=== PATIENT | male | born 1970 | race American Indian/Alaskan Native ===

== ENCOUNTER 2021-03-03 04:04 | Inpatient (IN) | payer OTHER ==
--- NOTE | 2021-03-03 04:12 | Emergency Department Report ---
HPI - General Time Seen by Provider: 03/03/21 04:08 - HPI HPI: Room 2 The patient is a 50-year-old male present with a chief complaint of right-sided weakness. Patient states at approximately 18:30 yesterday evening he noticed weakness in his right arm and leg making him unable to walk. Patient states he also noticed some difficulty speaking. ED Past Medical Hx - Past Medical History Hx Hypertension: Yes Hx CVA: Yes (No residual deficit) - Surgical History Past Surgical History?: No - Family History Family history: no significant - Social History Substance Use Type: None - Medications Home Medications: Home Medications Medication Instructions Recorded Confirmed Last Taken Type AtorvaSTATin [Lipitor] 40 mg PO QHS 03/03/21 03/03/21 1 Day Ago History ~03/02/21 1 Clopidogrel [Plavix] 75 mg PO QDAY 03/03/21 03/03/21 1 Day Ago History ~03/02/21 1 Levothyroxine Sodium [Synthroid] 300 mcg PO 03/03/21 1 Day Ago History ~03/02/21 1 Lisinopril [Zestril TAB] 30 mg PO QDAY 03/03/21 03/03/21 1 Day Ago History ~03/02/21 1 NIFEdipine [Adalat cc] 90 mg PO 03/03/21 1 Day Ago History ~03/02/21 1 glipiZIDE [Glucotrol] 5 mg PO QDAY 03/03/21 03/03/21 Unknown History ED Review of Systems ROS: Stated complaint: CVA Other details as noted in HPI Constitutional: no symptoms reported Eyes: denies: eye pain ENT: denies: throat pain Respiratory: no symptoms reported Cardiovascular: denies: chest pain Endocrine: no symptoms reported Gastrointestinal: denies: abdominal pain Musculoskeletal: denies: back pain Neurological: weakness. denies: headache Physical Exam - Physical Exam Physical Exam: GENERAL: The patient is well-developed well-nourished male lying on stretcher not appearing to be in acute distress. [] HEENT: Normocephalic. Atraumatic. Extraocular motions are intact. Patient has moist mucous membranes. NECK: Supple. Trachea midline CHEST/LUNGS: Clear to auscultation. There is no respiratory distress noted. HEART/CARDIOVASCULAR: Regular. There is no tachycardia. There is no gallop rub or murmur. ABDOMEN: Abdomen is soft, nontender. Patient has normal bowel sounds. There is no abdominal distention. SKIN: There is no rash. There is no edema. There is no diaphoresis. NEURO: The patient is awake, alert, and oriented. The patient is cooperative. Cranial nerves II through XII grossly intact. The patient has slightly impaired speech. Patient able to hold either arm at 45 degree angle for 10-second count without drift. Patient able to hold right lower extremity at 30 degree angle for 5 seconds however it drifts but does not touch the bed. Patient able to hold left lower extremity at 30 degree angle for 5-second count. NIHSS=3 MUSCULOSKELETAL: There is no evidence of acute injury. ED Course - Consultations Consultation #1: 03/03/21 04:13 Case discussed with tele- neurologist Dr. Emmanuel ED Medical Decision Making - Lab Data Result diagrams: 03/03/21 04:21 03/03/21 04:21 - EKG Data -: EKG Interpreted by Oh EKG shows normal: sinus rhythm Rate: normal - EKG Data When compared to previous EKG there are: previous EKG unavailable Interpretation: nonspecific ST-T wave iftikhar - Radiology Data Radiology results: report reviewed (CT head), image reviewed (CT head) [facility] [address] [place] [address] Cat Scan Report Signed Patient: ERINN SMITH III MR#: [id number] : 1970 Acct:[id number] Age/Sex: 50 / M ADM Date: 03/03/21 Loc: ED Attending Dr: Ordering Physician: JOVANA SOLORIO MD Date of Service: 03/03/21 Procedure(s): CT head/brain wo con Accession Number(s): [id number] cc: JOVANA SOLORIO MD CT HEAD WITHOUT CONTRAST INDICATION / CLINICAL INFORMATION: Right-sided weakness. TECHNIQUE: All CT scans at this location are performed using CT dose reduction for ALARA by means of automated exposure control. COMPARISON: None available. FINDINGS: HEMORRHAGE: None. EXTRA-AXIAL SPACES: Normal in size and morphology for the patient's age. VENTRICULAR SYSTEM: Normal in size and morphology for the patient's age. CEREBRAL PARENCHYMA: 8mm age-indeterminate left basal ganglia lacunar infarct image 15. Several tiny old lacunar infarcts right caudate and right anterior limb internal capsule. No significant abnormality. No acute territorial infarct. MIDLINE SHIFT OR HERNIATION: None. CEREBELLUM / BRAINSTEM: No significant abnormality. ORBITS: Normal as visualized. SOFT TISSUES of HEAD: No significant abnormality. CALVARIUM: No significant abnormality. PARANASAL SINUSES / MASTOID AIR CELLS: Normal as visualized. ADDITIONAL FINDINGS: None. IMPRESSION: 1. Age-indeterminate left basal ganglia lacunar infarct. 2. Mild microangiopathy 3. Several tiny old lacunar infarcts right caudate and right anterior limb internal capsule 4. No intracranial bleed or large acute territorial infarction CODE STROKE: Time of Communication (MEDIA CONSULTANT/CDT): 3:34 AM CDT 03/03/2024 Licensed Practitioner Receiving Report: Dr Solorio Signer Name: Cy Rick MD Signed: 03/03/2021 4:36 AM Workstation Name: [id number] Transcribed By: TL Dictated By: Cy Rick MD Electronically Authenticated By: Cy Rick MD Signed Date/Time: 03/03/21435 DD/ 9 TD/TT: Print Cancel - Differential Diagnosis CVA, ICH Critical care attestation.: If time is entered above; I have spent that time in minutes in the direct care of this critically ill patient, excluding procedure time. ED Disposition Clinical Impression: CVA (cerebral vascular accident) Disposition: ADMITTED INPATIENT Is pt being admited?: Yes Does the pt Need Aspirin: Yes Condition: Fair Time of Disposition: 05:22 (Hospitalist called (Dr Michele))
--- NOTE | 2021-03-03 04:19 | Consultation ---
Assessment and Plan [facility] Consult Note # Demographics Consult Type: Acute Stroke Level 2 (4.5-24 hrs) Patient Location: Emergency Room First Name: Omid Last Name: Bernard CODY Date of : 1970 Age: 50 Gender: Male Facility: [facility] Time of Initial Page ( Time): 03/03/2021, 04:09 Time of Return Call ( Time): 03/03/2021, 04:10 # HPI History: 50 yo man with history of htn, previous stroke presents wtih mild right-sided weakness starting last evening. # Data Time Head CT personally read by me ( Time): 03/03/2021, 04:[address]: no bleed preliminarily reviewed by me, please refer to radiology read for official reading # Assessment Impression: Right-sided weakness concerning for acute stroke # Plan Thrombolytic/Intervention: NOT IV Thrombolysis or IA Intervention candidate Thrombolytic Exclusion: > 4.5 hours Intraarterial Exclusion: other Symptoms not suggestive of LVO Target Blood Pressure: SBP < 220 Labs: hemoglobin A1c lipid panel Imaging: (urgency: routine): MR Angiogram Head without contrast MR Angiogram Neck with contrast MRI Brain without contrast Diagnostic Test: echo with bubble study Therapy/Evaluation: NPO until swallow evaluation PT/OT evaluation speech/swallow consultation Medication: aspirin 81 mg daily clopidogrel (Plavix) 75 mg daily aspirin 81 mg PLUS clopidogrel (Plavix) 75 mg for 21 days, then monotherapy therafter DVT Prophylaxis: SCD chemical DVT prophylaxis Other: LDL < 70 permissive hypertension telemetry monitoring I have discussed my recommendations with the referring provider Disposition: admit # Logistics Telemedicine: phone only
[2021-03-03] MEDS ORDERED: ASPIRIN 325 MG TAB PO ONE (04:37)
--- NOTE | 2021-03-03 04:41 | Cat Scan Report ---
CT HEAD WITHOUT CONTRAST INDICATION / CLINICAL INFORMATION: Right-sided weakness. TECHNIQUE: All CT scans at this location are performed using CT dose reduction for ALARA by means of automated e xposure control. COMPARISON: None available. FINDINGS: HEMORRHAGE: None. EXTRA-AXIAL SPACES: Normal in size and morphology for the patient's age. VENTRICULAR SYSTEM: Normal in size and morphology for the patient's age. CEREBRAL PARENCHYMA: 8mm age-indeterminate left basal ganglia lacunar infarct image 15. Several tiny old lacunar infarcts right caudate and right anterior limb internal capsule. No significant abnormali ty. No acute territorial infarct. MIDLINE SHIFT OR HERNIATION: None. CEREBELLUM / BRAINSTEM: No significant abnormality. ORBITS: Normal as visualized. SOFT TISSUES of HEAD: No significant abnormality. CALVARIUM: No significant abnormality. PARANASAL SINUSES / MASTOID AIR CELLS: Normal as visualized. ADDITIONAL FINDINGS: None. IMPRESSION: 1. Age-indeterminate left basal ganglia lacunar infarct. 2. Mild microangiopathy 3. Several tiny old lacunar infarcts right caudate and right anterior limb internal capsule 4. No intracranial bleed or large acute territorial infarction CODE STROKE: Time of Communication (DIRECTOR OF PROCUREMENT/CDT): 3:34 AM CDT 03/03/2024 Licensed Practitioner Receiving Report: Dr Cuevas Signer Name: Cy Rick MD Signed: 03/03/2021 4:36 AM Workstation Name: [id number]
[2021-03-03 04:49] LABS: Basophils # (Auto) 0.1 K/mm3 (0.0-0.1); Basophils % (Auto) 1.4 % (0.0-1.8); Eosinophils # (Auto) 0.1 K/mm3 (0.0-0.4); Eosinophils % (Auto) 1.6 % (0.0-4.3); Hematocrit 38.9 % (35.5-45.6); Hemoglobin 13.1 gm/dl (11.8-15.2); Lymphocytes # (Auto) 2.7 K/mm3 (1.2-5.4); Lymphocytes % (Auto) 29.2 % (13.4-35.0); Mean Corpuscular HGB Conc 34 % (32-34); Mean Corpuscular Volume 85 fl (84-94); Monocytes # (Auto) 0.6 K/mm3 (0.0-0.8); Monocytes % (Auto) 6.5 % (0.0-7.3); Platelet Count 175 K/mm3 (140-440); Red Blood Count 4.56 M/mm3 (3.65-5.03); Red Cell Distribution Width 13.8 % (13.2-15.2)
[2021-03-03 04:53] LABS: BUN/Creatinine Ratio 23; Blood Urea Nitrogen 18 mg/dL (9-20); Calcium 9.8 mg/dL (8.4-10.2); Hemolysis Index 4
[2021-03-03 04:58] LABS: INR 0.95 (0.87-1.13); Partial Thromboplastin Time 27.9 Sec. (24.2-36.6)
[2021-03-03 04:59] LABS: Thrombin Time 16.6 Sec. (15.1-19.6)
[2021-03-03] MEDS ORDERED: ALBUTEROL 2.5 MG/3 ML NEBU IH PRN (08:00)
[2021-03-03] MEDS ORDERED: DEXTROSE 50% IN WATER (25GM) 50 ML SYRINGE IV PRN (08:00)
--- NOTE | 2021-03-03 08:58 | History and Physical Report ---
History of Present Illness Date of examination: 03/03/21 Date of admission: 03/03/21 06:05 Chief complaint: Right-sided weakness and slurred speech History of present illness: Patient is a 50-year-old male with past medical history of hypertension, diabetes mellitus, 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 Also has a history of hypothyroidism presents today with complaint of slurred speech right face arm and leg weakness which started about 1700 the day before presentation. He reports that has been compliant with his Plavix but is not on aspirin although tells me that he take statin but later told the neurologist that he did not. In the ER he was treated as a code stroke as he was noted to have right arm weakness and slurred speech. Apart from physical finding initial imaging study showed MPRESSION: 1. Age- indeterminate left basal ganglia lacunar infarct. 2. Mild microangiopathy 3. Several tiny old lacunar infarcts right caudate and right anterior limb internal capsule 4. No intracranial bleed or large acute territorial infarction G Past History Past Medical History: diabetes, hypertension, hypothyroidism, stroke Past Surgical History: No surgical history Social history: no significant social history, full code. denies: alcohol abuse, prescription drug abuse, IV drug use Family history: stroke (Father and grandfather) Medications and Allergies Allergies Allergy/AdvReac Type Severity Reaction Status Date / Time No Known Allergies Allergy Verified 03/03/21 04:22 Home Medications Medication Instructions Recorded Confirmed Last Taken Type AtorvaSTATin [Lipitor] 40 mg PO QHS 03/03/21 03/03/21 1 Day Ago History ~03/02/21 1 Clopidogrel [Plavix] 75 mg PO QDAY 03/03/21 03/03/21 1 Day Ago History ~03/02/21 1 Levothyroxine Sodium [Synthroid] 300 mcg PO DAILY 03/03/21 03/03/21 1 Day Ago History ~03/02/21 1 Lisinopril [Zestril TAB] 30 mg PO QDAY 03/03/21 03/03/21 1 Day Ago History ~03/02/21 1 NIFEdipine [Adalat cc] 90 mg PO DAILY 03/03/21 03/03/21 1 Day Ago History ~03/02/21 1 glipiZIDE [Glucotrol] 5 mg PO QDAY 03/03/21 03/03/21 Unknown History Active Meds: Active Medications Acetaminophen (Acetaminophen 325 Mg Tab) 650 mg PO Q4H PRN PRN Reason: Pain MILD(1-3)/Fever >100.5/WOLFF Albuterol (Albuterol 2.5 Mg/3 Ml Nebu) 2.5 mg IH Q4HRT PRN PRN Reason: Shortness Of Breath Aspirin (Aspirin 325 Mg Tab) 325 mg PO QDAY [facility] Atorvastatin Calcium (Atorvastatin 40 Mg Tab) 80 mg PO QHS [facility]INA Clopidogrel Bisulfate (Clopidogrel 75 Mg Tab) 75 mg PO QDAY [facility]ARINA Dextrose (Dextrose 50% In Water (25gm) 50 Ml Syringe) 50 ml IV Q30MIN PRN; Protocol PRN Reason: Hypoglycemia Heparin Sodium (Porcine) (Heparin 5,000 Unit/1 Ml Vial) 5,000 unit SUB-Q Q8HR KARINA Hydralazine HCl (Hydralazine 20 Mg/1 Ml Inj) 10 mg IV Q4HR PRN PRN Reason: Hypertension Insulin Human Lispro (Insulin Lispro 100 Unit/Ml) 0 unit SUB-Q ACHS [facility]; Protocol Magnesium Hydroxide (Magnesium Hydroxide (Mom) Oral Liqd Udc) 30 ml PO Q4H PRN PRN Reason: Constipation Miscellaneous Medication (Levothyroxine Sodium [Synthroid]) 300 mcg PO DAILY [facility] Miscellaneous Medication (Lisinopril [Zestril Tab]) 30 mg PO QDAY [facility] Miscellaneous Medication (Nifedipine [Adalat Cc]) 90 mg PO DAILY [facility] Naloxone HCl (Naloxone 0.4 Mg/1 Ml Inj) 0.1 mg IV Q2MIN PRN PRN Reason: Res Rate </= 8 or 02 SAT < 92% Ondansetron HCl (Ondansetron 4 Mg/2 Ml Inj) 4 mg IV Q4H PRN PRN Reason: Nausea And Vomiting Oxycodone/Acetaminophen (Oxycodone /Acetaminophen 5-325mg Tab) 1 tab PO Q6H PRN PRN Reason: Pain, Moderate (4-6) Sodium Chloride (Sodium Chloride 0.9% 10 Ml Flush Syringe) 10 ml IV BID KARINA Sodium Chloride (Sodium Chloride 0.9% 10 Ml Flush Syringe) 10 ml IV PRN PRN PRN Reason: LINE FLUSH Sodium Chloride (Sodium Chloride 0.9% 10 Ml Flush Syringe) 10 ml INJ PRN PRN PRN Reason: LINE FLUSH Review of Systems All systems: negative Ears, nose, mouth and throat: dysphagia, other (Facial droop left) Cardiovascular: no syncope, no lightheadedness, no shortness of breath Respiratory: no cough, no cough with sputum, no shortness of breath, no dyspnea on exertion Gastrointestinal: no abdominal pain, no vomiting, no diarrhea, no constipation, no change in bowel habits, no loss of appetite Neurological: paralysis (Right side), lack of coordination, change in speech, balance difficulties, gait dysfunction, sensory deficit, paralysis (Right side) Exam - Physical Exam Narrative exam: GENERAL: The patient is well-developed well-nourished male lying on stretcher not appearing to be in acute distress. Examined in the ER HEENT: Normocephalic. Atraumatic. Extraocular motions are intact. Patient has moist mucous membranes. NECK: Supple. Trachea midline CHEST/LUNGS: Clear to auscultation. There is no respiratory distress noted. HEART/CARDIOVASCULAR: Regular. There is no tachycardia. There is no gallop rub or murmur. ABDOMEN: Abdomen is soft, nontender. Patient has normal bowel sounds. There is no abdominal distention. SKIN: There is no rash. There is no edema. There is no diaphoresis. NEURO: The patient is awake, alert, and oriented. The patient is cooperative. Cranial nerves II through XII grossly intact. The patient has slightly impaired speech. And also with the left facial droop patient able to hold either arm at 45 degree angle for 10-second count without drift. Patient able to hold right lower extremity at 30 degree angle for 5 seconds however it drifts but does not touch the bed. Patient able to hold left lower extremity at 30 degree angle for 5-second count. NIHSS=3 MUSCULOSKELETAL: There is no evidence of acute injury. - Constitutional Vitals: Temp Pulse Resp BP Pulse Ox 99.0 F 84 14 185/99 99 03/03/21 04:22 03/03/21 06:45 03/03/21 06:45 03/03/21 06:45 03/03/21 06:45 Results - Labs CBC & Chem 7: 03/03/21 04:21 03/03/21 04:21 Labs: Laboratory Last Values WBC 9.1 K/mm3 (4.5-11.0) 03/03/21 04:21 RBC 4.56 M/mm3 (3.65-5.03) 03/03/21 04:21 Hgb 13.1 gm/dl (11.8-15.2) 03/03/21 04:21 Hct 38.9 % (35.5-45.6) 03/03/21 04:21 MCV 85 fl (84-94) 03/03/21 04:21 MCH 29 pg (28-32) 03/03/21 04:21 MCHC 34 % (32-34) 03/03/21 04:21 RDW 13.8 % (13.2-15.2) 03/03/21 04:21 Plt Count 175 K/mm3 (140-440) 03/03/21 04:21 Lymph % (Auto) 29.2 % (13.4-35.0) 03/03/21 04:21 Prentiss % (Auto) 6.5 % (0.0-7.3) 03/03/21 04:21 Eos % (Auto) 1.6 % (0.0-4.3) 03/03/21 04:21 Baso % (Auto) 1.4 % (0.0-1.8) 03/03/21 04:21 Lymph # (Auto) 2.7 K/mm3 (1.2-5.4) 03/03/21 04:21 Prentiss # (Auto) 0.6 K/mm3 (0.0-0.8) 03/03/21 04:21 Eos # (Auto) 0.1 K/mm3 (0.0-0.4) 03/03/21 04:21 Baso # (Auto) 0.1 K/mm3 (0.0-0.1) 03/03/21 04:21 Seg Neutrophils % 61.3 % (40.0-70.0) 03/03/21 04:21 Seg Neutrophils # 5.6 K/mm3 (1.8-7.7) 03/03/21 04:21 PT 13.7 Sec. (12.2-14.9) 03/03/21 04:21 INR 0.95 (0.87-1.13) 03/03/21 04:21 APTT 27.9 Sec. (24.2-36.6) 03/03/21 04:21 Thrombin Time 16.6 Sec. (15.1-19.6) 03/03/21 04:21 Sodium 141 mmol/L (137-145) 03/03/21 04:21 Potassium 3.9 mmol/L (3.6-5.0) 03/03/21 04:21 Chloride 104.1 mmol/L (98-107) 03/03/21 04:21 Carbon Dioxide 25 mmol/L (22-30) 03/03/21 04:21 Anion Gap 16 mmol/L 03/03/21 04:21 BUN 18 mg/dL (9-20) 03/03/21 04:21 Creatinine 0.8 mg/dL (0.8-1.3) 03/03/21 04:21 Estimated GFR > 60 ml/min 03/03/21 04:21 BUN/Creatinine Ratio 23 % 03/03/21 04:21 Glucose 184 mg/dL (75-100) H 03/03/21 04:21 Calcium 9.8 mg/dL (8.4-10.2) 03/03/21 04:21 Assessment and Plan Assessment and plan: Patient is a 50-year-old male with past medical history of hypertension, diabetes mellitus, 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 Also has a history of hypothyroidism presents today with complaint of slurred speech right face arm and leg weakness which started about 1700 the day before presentation. He reports that has been compliant with his Plavix but is not on aspirin although tells me that he take statin but later told the neurologist that he did not. In the ER he was treated as a code stroke as he was noted to have right arm weakness and slurred speech. Apart from physical finding initial imaging study showed MPRESSION: 1. Age- indeterminate left basal ganglia lacunar infarct. 2. Mild microangiopathy 3. Several tiny old lacunar infarcts right caudate and right anterior limb internal capsule 4. No intracranial bleed or large acute territorial infarction EKG shows normal: sinus rhythm Rate: normal Acute ischemic stroke although imaging studies showing lacunar infarcts with no large bleed. Hypertension will go with permissive hypertension for the next 72 hours Diabetes mellitus Morbid obesity Dysarthria/dysphagia Right-sided weakness Unsteady gait Plan Admit to telemetry we will resume his Plavix will increase statin to 80 mg. We will also start on aspirin 325 mg p.o. daily. As noted above we will do prep aggressive hyper pressure for the next 72hours. Will obtain a PT OT speech and swallow evaluation. We will also obtain an MRI of the brain without contrast. Hydralazine as needed if blood pressure greater than 200 systolic. Fall precautions Consult neurology Seizure precautions Accu-Cheks before meals and at bedtime following successful speech evaluation if not we will do every 6 hours DVT and GI prophylaxis Plan discussed in detail with the patient Advance Directives: Yes Plan of care discussed with patient/family: Yes
[2021-03-03] MEDS ORDERED: ACETAMINOPHEN 325 MG TAB PO PRN (09:00)
[2021-03-03] MEDS: hydrALAZINE 20 MG/1 ML INJ IV PRN ×3 (09:15→22:47)
[2021-03-03] MEDS ORDERED: LEVOTHYROXINE SODIUM 300 MCG PO SCH (10:00)
[2021-03-03] MEDS ORDERED: oxyCODONE /ACETAMINOPHEN 5-325MG TAB PO PRN (10:00)
[2021-03-03] MEDS ORDERED: ONDANSETRON 4 MG/2 ML INJ IV PRN (10:00)
[2021-03-03] MEDS ORDERED: NALOXONE 0.4 MG/1 ML INJ IV PRN (10:00)
[2021-03-03] MEDS ORDERED: MAGNESIUM HYDROXIDE (MOM) ORAL LIQD UDC PO PRN (10:00)
--- NOTE | 2021-03-03 10:07 | Consultation ---
History of Present Illness Consult date: 03/03/21 Reason for Consult: CVA Chief complaint: Right-sided weakness History of present illness: 50 yo male with htn, dm, cva last year with left-sided weakness, hypothyrodism, who presents with acute onset of right face/arm/leg weakness with slurring of speech around 17:00. He presented outside the [facility]PA window. He notes that the weakness has remained the same during this hospitalization. He notes he is compliant with aspirin and plavix therapy and is not on statin therapy. He denies any other symptoms at present. Past History Past Medical History: diabetes, hypertension, stroke Medications and Allergies Allergies Allergy/AdvReac Type Severity Reaction Status Date / Time No Known Allergies Allergy Verified 03/03/21 04:22 Home Medications Medication Instructions Recorded Confirmed Last Taken Type AtorvaSTATin [Lipitor] 40 mg PO QHS 03/03/21 03/03/21 1 Day Ago History ~03/02/21 1 Clopidogrel [Plavix] 75 mg PO QDAY 03/03/21 03/03/21 1 Day Ago History ~03/02/21 1 Levothyroxine Sodium [Synthroid] 300 mcg PO DAILY 03/03/21 03/03/21 1 Day Ago History ~03/02/21 1 Lisinopril [Zestril TAB] 30 mg PO QDAY 03/03/21 03/03/21 1 Day Ago History ~03/02/21 1 NIFEdipine [Adalat cc] 90 mg PO DAILY 03/03/21 03/03/21 1 Day Ago History ~03/02/21 1 glipiZIDE [Glucotrol] 5 mg PO QDAY 03/03/21 03/03/21 Unknown History Active Meds: Active Medications Acetaminophen (Acetaminophen 325 Mg Tab) 650 mg PO Q4H PRN PRN Reason: Pain MILD(1-3)/Fever >100.5/WOLFF Albuterol (Albuterol 2.5 Mg/3 Ml Nebu) 2.5 mg IH Q4HRT PRN PRN Reason: Shortness Of Breath Aspirin (Aspirin 325 Mg Tab) 325 mg PO QDAY KARINA Atorvastatin Calcium (Atorvastatin 40 Mg Tab) 80 mg PO QHS KARINA Clopidogrel Bisulfate (Clopidogrel 75 Mg Tab) 75 mg PO QDAY KARINA Dextrose (Dextrose 50% In Water (25gm) 50 Ml Syringe) 50 ml IV Q30MIN PRN; Protocol PRN Reason: Hypoglycemia Heparin Sodium (Porcine) (Heparin 5,000 Unit/1 Ml Vial) 5,000 unit SUB-Q Q8HR [facility] Hydralazine HCl (Hydralazine 20 Mg/1 Ml Inj) 10 mg IV Q4HR PRN PRN Reason: Hypertension Last Admin: 03/03/21 09:15 Dose: 10 mg Documented by: Insulin Human Lispro (Insulin Lispro 100 Unit/Ml) 0 unit SUB-Q ACHS [facility]; Protocol Levothyroxine Sodium (Levothyroxine 150 Mcg Tab) 300 mcg PO DAILY@0600 [facility] Lisinopril (Lisinopril 10 Mg Tab) 30 mg PO QDAY [facility] Magnesium Hydroxide (Magnesium Hydroxide (Mom) Oral Liqd Udc) 30 ml PO Q4H PRN PRN Reason: Constipation Naloxone HCl (Naloxone 0.4 Mg/1 Ml Inj) 0.1 mg IV Q2MIN PRN PRN Reason: Res Rate </= 8 or 02 SAT < 92% Nifedipine (Nifedipine Xl 90 Mg Tab) 90 mg PO QDAY [facility] Ondansetron HCl (Ondansetron 4 Mg/2 Ml Inj) 4 mg IV Q4H PRN PRN Reason: Nausea And Vomiting Oxycodone/Acetaminophen (Oxycodone /Acetaminophen 5-325mg Tab) 1 tab PO Q6H PRN PRN Reason: Pain, Moderate (4-6) Sodium Chloride (Sodium Chloride 0.9% 10 Ml Flush Syringe) 10 ml IV BID [facility] Sodium Chloride (Sodium Chloride 0.9% 10 Ml Flush Syringe) 10 ml IV PRN PRN PRN Reason: LINE FLUSH Review of Systems All systems: negative (as per HPI;) Physical Examination - Vital Signs Vital Signs: Vital Signs Temp Pulse Resp BP Pulse Ox 99.0 F 93 H 14 177/89 98 03/03/21 04:22 03/03/21 04:22 03/03/21 04:22 03/03/21 04:22 03/03/21 04:22 - Physical Exam Narrative exam: Gen: nad, well-nourished; Head: normocephalic; Eyes: no gaze deviation; no ptosis; ENT: normal vocalization; CVS: warm and well-perfused; Pulm: no respiratory distress; GI: appears non-distended, protuberant; Ext: no cyanosis appreciated at distal extremities; Skin: no acute rash appreciated at distal extremities; Heme: no pathologic bruising appreciated at distal extremities; Neuro: alert, oriented to name, age, month, surroundings, mild dysarthria, no aphasia, CN 2 - PERRL, visual reddy grossly intact, CN 3, 4, 6 - EOMI, CN 5 - facial sensation symmetric to light touch, CN 7 - facial movement decreased on left, CN 8 - hearing grossly intact, CN 9, 10 - uvula midline, CN 11 - shrug symmetric, CN 12 - tongue midline; Motor - at least 4+/5 at left exts and at least 4/5 at right exts with 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 4-/5; Sensory - light touch symmetric, Cerebellar - fnf /hts difficulty on right secondary to weakness; Gait - deferred secondary to fall risk; NIHSS (1a.) Level of Consciousness:0 (1b.) LOC Questions:0 (1c.) LOC Commands:0 (2.) Best Gaze:0 (3.) Visual:0 (4.) Facial Palsy:1 (5a.) Motor Arm, Left: (5b.) Motor Arm, Right: 1 (6a.) Motor Leg, Left:0 (6b.) Motor Leg, Right:1 (7.) Limb Ataxia:0 (8.) Sensory:0 (9.) Best Language:0 (10.) Dysarthria:1 (11.) Extinction and Inattention: NIHSS Total Score: 3 Results - Laboratory Findings CBC and BMP: 03/03/21 04:21 03/03/21 04:21 Abnormal Lab Findings: Abnormal Labs 03/03/21 04:21 Glucose 184 H Assessment and Plan 50 yo male with htn, dm, cva last year with left-sided weakness, hypothyrodism, who presents with acute onset of right face/arm/leg weakness with slurring of speech around 17:00. Concern for a lacunar stroke is raised. 1. Acute Ischemic Stroke: ASA 325 mg PO qday, Plavix 75 mg PO qday; MRI Brain w/o contrast, CTA Head/Neck w/ & w/o contrast, TTEcho, check LDL/HgbA1C/TSH/Covid-19/UA/UDS, baseline ekg; telemetry, NIHSS q4 hours; SBP goal 160-200 mmHg and DBP 80-100 mmHg for 72 hours. Statin therapy for a goal LDL of 70, when patient passes swallow evaluation. PT/OT/ST/Swallow evaluation. Long-term risk-factor modification, including a strict diet/exercise regimen for secondary stroke prophylaxis. 2. Hypertension - goal SBP 160-200 mmHg and DBP 80-100 mmHg for 72 hours. 3. Diabetes Mellitus - maintain euglycemia. 4. Hyperlipidemia - goal LDL of 70 w/ statin therapy if no contraindications. 5. Dysarthria / Dysphagia - st / swallow evaluation/monitoring. 6. Right-sided weakness - pt/ot evaluation/monitoring. 7. Unsteady Gait - pt/ot evaluation/monitoring. Bob Yates MD Neurology [id number]
--- NOTE | 2021-03-03 11:14 | Magnetic Resonance Report ---
MRI BRAIN WITHOUT CONTRAST INDICATION / CLINICAL INFORMATION: stroke--weakness. TECHNIQUE: Multiplanar, multisequence MR images of the brain were obtained. COMPARISON: Head CT done earlier today FINDINGS: BRAIN / INTRACRANIAL CONTENTS: There is a small acute lacunar infarct in the left posterior limb of t he internal capsule without hemorrhage or adverse mass effect. There are multiple chronic lacunar inf arcts in the bilateral basal ganglia and periventricular white matter. There is moderate chronic smal l vessel ischemic change in the cerebral white matter. There are also a few small chronic infarcts in the cerebellar hemispheres. Scattered foci of cerebral and cerebellar hemosiderin deposition also leonard ggest chronic microhemorrhages related to hypertension. CRANIOCERVICAL JUNCTION: No significant abnormality. VASCULAR FLOW-VOIDS: No significant abnormality. ORBITS: No significant abnormality of visualized orbits. SINUSES / MASTOIDS: No significant abnormality of visualized sinuses and mastoid air cells. ADDITIONAL FINDINGS: None. IMPRESSION: 1. Acute lacunar infarct in the posterior limb of the left internal capsule. Signer Name: Eleazar Cobb MD Signed: 03/03/2021 11:10 AM Workstation Name: [id number]
--- NOTE | 2021-03-03 12:02 | Vascular Lab Report ---
DUPLEX DOPPLER ULTRASOUND CAROTID, BILATERAL INDICATION / CLINICAL INFORMATION: CVA. COMPARISON: None available. FINDINGS: RIGHT CAROTID: - PLAQUE ESTIMATE (%): < 50% - CCA velocity: 86 cm/sec. - ICA peak systolic velocity: 50 to cm/sec. - ICA/CCA PSV Ratio: 0.6 Right Vertebral Artery: Antegrade flow. LEFT CAROTID: - PLAQUE ESTIMATE: < 50% - CCA velocity: 74 cm/sec. - ICA peak systolic velocity: 59 cm/sec. - ICA/CCA PSV Ratio: 0.7 Left Vertebral Artery: Antegrade flow. IMPRESSION: 1. Right Internal Carotid Artery: Less than 50% diameter stenosis. 2. Left Internal Carotid Artery: Less than 50% diameter stenosis. Velocity criteria are extrapolated from diameter data as defined by the Society of Radiologists in Ul trasound Consensus Conference, Radiology 2003; 229;340-346. NO STENOSIS (NORMAL) * Plaque = none; ICA PSV < 125 cm/sec; ICA/CCA PSV Ratio < 2.0 <50% STENOSIS * Plaque < 50%; ICA PSV < 125 cm/sec; ICA/CCA PSV Ratio < 2.0 50-69% STENOSIS * Plaque > 50%; ICA PSV = 125-230 cm/sec; ICA/CCA PSV Ratio = 2.0-4.0 >70% BUT <100% STENOSIS * Plaque > 50%; ICA PSV > 230 cm/sec; ICA/CCA PSV Ratio > 4.0 NEAR OCCLUSION * Plaque = visible lumen; ICA PSV = high/low/none; ICA/CCA PSV Ratio = variable TOTAL OCCLUSION * Plaque = no lumen; ICA PSV = none; ICA/CCA PSV Ratio = N/A Signer Name: Jaquan Avila MD Signed: 03/03/2021 11:58 AM Workstation Name: [facility]
[2021-03-03] MEDS: CLOPIDOGREL 75 MG TAB PO SCH (12:26)
[2021-03-03] MEDS: LEVOTHYROXINE 150 MCG TAB PO SCH (12:26)
[2021-03-03] MEDS: INSULIN LISPRO 100 UNIT/ML SUB-Q SCH ×3 (12:27→22:48)
[2021-03-03] MEDS: HEPARIN 5,000 UNIT/1 ML VIAL SUB-Q SCH ×2 (14:50→22:19)
[2021-03-04] MEDS: hydrALAZINE 20 MG/1 ML INJ IV PRN (03:50)
[2021-03-04 06:08] LABS: Basophils % (Auto) 0.4 % (0.0-1.8); Eosinophils # (Auto) 0.1 K/mm3 (0.0-0.4); Eosinophils % (Auto) 0.6 % (0.0-4.3); Hematocrit 39.3 % (35.5-45.6); Hemoglobin 13.3 gm/dl (11.8-15.2); Lymphocytes # (Auto) 1.6 K/mm3 (1.2-5.4); Lymphocytes % (Auto) 16.4 % (13.4-35.0); Mean Corpuscular HGB Conc 34 % (32-34); Mean Corpuscular Volume 85 fl (84-94); Monocytes # (Auto) 0.6 K/mm3 (0.0-0.8); Monocytes % (Auto) 5.9 % (0.0-7.3); Platelet Count 190 K/mm3 (140-440); Red Blood Count 4.63 M/mm3 (3.65-5.03); Red Cell Distribution Width 13.5 % (13.2-15.2)
[2021-03-04] MEDS: HEPARIN 5,000 UNIT/1 ML VIAL SUB-Q SCH ×3 (06:20→21:54)
[2021-03-04] MEDS: LEVOTHYROXINE 150 MCG TAB PO SCH (06:21)
[2021-03-04 06:31] LABS: BUN/Creatinine Ratio 18; Blood Urea Nitrogen 18 mg/dL (9-20); Calcium 9.9 mg/dL (8.4-10.2); HDL Cholesterol 30 mg/dL (40-59); Hemolysis Index 4; LDL Cholesterol,Direct 155 mg/dL (50-130)
[2021-03-04] MEDS: INSULIN LISPRO 100 UNIT/ML SUB-Q SCH ×4 (08:45→23:04)
[2021-03-04] MEDS ORDERED: NON-FORMULARY EACH (Nifedipine [Adalat Cc] 90 MG Tablet.Er) PO SCH (10:00)
[2021-03-04] MEDS ORDERED: NON-FORMULARY EACH (Lisinopril [Zestril Tab] 30 MG Tablet) PO SCH (10:00)
[2021-03-04] MEDS ORDERED: PNEUMOCOCCAL 23 Valent 0.5 ML VIAL IM ONE (10:00)
[2021-03-04] MEDS: CLOPIDOGREL 75 MG TAB PO SCH (11:25)
[2021-03-04] MEDS: ASPIRIN 325 MG TAB PO SCH (11:26)
[2021-03-04] MEDS: NIFEdipine XL 90 MG TAB PO SCH (11:26)
[2021-03-04] MEDS: LISINOPRIL 10 MG TAB PO SCH (11:27)
--- NOTE | 2021-03-04 16:33 | Progress Note ---
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 Also has a history of hypothyroidism presents today with complaint of slurred speech right face arm and leg weakness which started about 1700 the day before presentation. He reports that has been compliant with his Plavix but is not on aspirin although tells me that he take statin but later told the neurologist that he did not. In the ER he was treated as a code stroke as he was noted to have right arm weakness and slurred speech. Apart from physical finding initial imaging study showed MPRESSION: 1. Age-in determinate left basal ganglia lacunar infarct. 2. Mild microangiopathy 3. Several tiny old lacunar infarcts right caudate and right anterior limb internal capsule 4. No intracranial bleed or large acute territorial infarction EKG shows normal: sinus rhythm Rate: normal Acute ischemic stroke although imaging studies showing lacunar infarcts with no large bleed. Hypertension will go with permissive hypertension for the next 72 hours Diabetes mellitus Morbid obesity Dysarthria/dysphagia Right-sided weakness Unsteady gait Plan Admit to telemetry we will resume his Plavix will increase statin to 80 mg. We will also start on aspirin 325 mg p.o. daily. As noted above we will do prep aggressive hyper pressure for the next 72hours. Will obtain a PT OT speech and swallow evaluation. We will also obtain an MRI of the brain without contrast. Hydralazine as needed if blood pressure greater than 200 systolic. Fall precautions Consult neurology Seizure precautions Accu-Cheks before meals and at bedtime following successful speech evaluation if not we will do every 6 hours DVT and GI prophylaxis Plan discussed in detail with the patient 03/04: MRI confirms acute stroke. Continue permissive hypertension for the next 24 hours. Speech therapy noted. Anticipate discharge to acute rehab if authorization granted in a.m. Patient tolerating diet. Carotid ultrasound did not show any requirement for intervention, plan discussed with the patient in detail. History Interval history: Patient seen and examined this morning reports some slight improvement in his speech. Hospitalist Physical - Physical exam Narrative exam: GENERAL: The patient is well-developed well-nourished male lying on stretcher not appearing to be in acute distress. Examined in the ER HEENT: Normocephalic. Atraumatic. Extraocular motions are intact. Patient has moist mucous membranes. NECK: Supple. Trachea midline CHEST/LUNGS: Clear to auscultation. There is no respiratory distress noted. HEART/CARDIOVASCULAR: Regular. There is no tachycardia. There is no gallop rub or murmur. ABDOMEN: Abdomen is soft, nontender. Patient has normal bowel sounds. There is no abdominal distention. SKIN: There is no rash. There is no edema. There is no diaphoresis. NEURO: The patient is awake, alert, and oriented. The patient is cooperative. Cranial nerves II through XII grossly intact. The patient has slightly impaired speech. And also with the left facial droop patient able to hold either arm at 45 degree angle for 10-second count without drift. Patient able to hold right lower extremity at 30 degree angle for 5 seconds however it drifts but does not touch the bed. Patient able to hold left lower extremity at 30 degree angle for 5-second count. NIHSS=3 MUSCULOSKELETAL: There is no evidence of acute injury. - Constitutional Vitals: Temp Pulse Resp BP Pulse Ox 97.5 F L 96 H 18 141/79 97 03/04/21 16:22 03/04/21 16:22 03/04/21 16:22 03/04/21 16:22 03/04/21 16:22 Results - Labs CBC & Chem 7: 03/04/21 04:00 03/04/21 04:00 Labs: Laboratory Last Values WBC 9.6 K/mm3 (4.5-11.0) 03/04/21 04:00 RBC 4.63 M/mm3 (3.65-5.03) 03/04/21 04:00 Hgb 13.3 gm/dl (11.8-15.2) 03/04/21 04:00 Hct 39.3 % (35.5-45.6) 03/04/21 04:00 MCV 85 fl (84-94) 03/04/21 04:00 MCH 29 pg (28-32) 03/04/21 04:00 MCHC 34 % (32-34) 03/04/21 04:00 RDW 13.5 % (13.2-15.2) 03/04/21 04:00 Plt Count 190 K/mm3 (140-440) 03/04/21 04:00 Lymph % (Auto) 16.4 % (13.4-35.0) 03/04/21 04:00 [place] % (Auto) 5.9 % (0.0-7.3) 03/04/21 04:00 Eos % (Auto) 0.6 % (0.0-4.3) 03/04/21 04:00 Baso % (Auto) 0.4 % (0.0-1.8) 03/04/21 04:00 Lymph # (Auto) 1.6 K/mm3 (1.2-5.4) 03/04/21 04:00 [place] # (Auto) 0.6 K/mm3 (0.0-0.8) 03/04/21 04:00 Eos # (Auto) 0.1 K/mm3 (0.0-0.4) 03/04/21 04:00 Baso # (Auto) 0.0 K/mm3 (0.0-0.1) 03/04/21 04:00 Seg Neutrophils % 76.7 % (40.0-70.0) H 03/04/21 04:00 Seg Neutrophils # 7.4 K/mm3 (1.8-7.7) 03/04/21 04:00 PT 13.7 Sec. (12.2-14.9) 03/03/21 04:21 INR 0.95 (0.87-1.13) 03/03/21 04:21 APTT 27.9 Sec. (24.2-36.6) 03/03/21 04:21 Thrombin Time 16.6 Sec. (15.1-19.6) 03/03/21 04:21 Sodium 141 mmol/L (137-145) 03/04/21 04:00 Potassium 3.4 mmol/L (3.6-5.0) L 03/04/21 04:00 Chloride 103.4 mmol/L (98-107) 03/04/21 04:00 Carbon Dioxide 23 mmol/L (22-30) 03/04/21 04:00 Anion Gap 18 mmol/L 03/04/21 04:00 BUN 18 mg/dL (9-20) 03/04/21 04:00 Creatinine 1.0 mg/dL (0.8-1.3) 03/04/21 04:00 Estimated GFR > 60 ml/min 03/04/21 04:00 BUN/Creatinine Ratio 18 % 03/04/21 04:00 Glucose 227 mg/dL (75-100) H 03/04/21 04:00 POC Glucose 197 mg/dL (70-105) H 03/04/21 11:35 Hemoglobin A1c 11.5 % (4-6) H 03/04/21 Unknown Calcium 9.9 mg/dL (8.4-10.2) 03/04/21 04:00 Triglycerides 166 mg/dL (2-149) H 03/04/21 04:00 Cholesterol 216 mg/dL (50-199) H 03/04/21 04:00 LDL Cholesterol Direct 155 mg/dL (50-130) H 03/04/21 04:00 HDL Cholesterol 30 mg/dL (40-59) L 03/04/21 04:00 Cholesterol/HDL Ratio 7.20 % 03/04/21 04:00 Active Medications - Current Medications Current Medications: Generic Name Dose Route Start Last Admin Trade Name Freq PRN Reason Stop Dose Admin Acetaminophen 650 mg 03/03/21 09:00 Acetaminophen 325 Mg Tab PO Q4H PRN Pain MILD(1-3)/Fever >100.5/WOLFF Albuterol 2.5 mg 03/03/21 08:00 Albuterol 2.5 Mg/3 Ml Nebu IH Q4HRT PRN Shortness Of Breath Aspirin 325 mg 03/04/21 10:00 03/04/21 11:26 Aspirin 325 Mg Tab PO 325 mg QDAY KARINA Administration Atorvastatin Calcium 80 mg 03/03/21 22:00 03/03/21 22:17 Atorvastatin 40 Mg Tab PO 80 mg QHS KARINA Administration Clopidogrel Bisulfate 75 mg 03/03/21 10:00 03/04/21 11:25 Clopidogrel 75 Mg Tab PO 75 mg QDAY KARINA Administration Dextrose 50 ml 03/03/21 08:00 Dextrose 50% In Water (25gm) 50 Ml Syringe IV Q30MIN PRN Hypoglycemia Protocol Heparin Sodium (Porcine) 5,000 unit 03/03/21 14:00 03/04/21 06:20 Heparin 5,000 Unit/1 Ml Vial SUB-Q 5,000 unit Q8HR KARINA Administration Hydralazine HCl 10 mg 03/03/21 10:00 03/04/21 03:50 Hydralazine 20 Mg/1 Ml Inj IV 10 mg Q4HR PRN Administration Hypertension Insulin Human Lispro 0 unit 03/03/21 11:30 03/04/21 08:45 Insulin Lispro 100 Unit/Ml SUB-Q 2 unit ACHS KARINA Administration Protocol Levothyroxine Sodium 300 mcg 03/03/21 10:00 03/04/21 06:21 Levothyroxine 150 Mcg Tab PO 300 mcg DAILY@0600 KARINA Administration Lisinopril 30 mg 03/04/21 10:00 03/04/21 11:27 Lisinopril 10 Mg Tab PO 30 mg QDAY KARINA Administration Magnesium Hydroxide 30 ml 03/03/21 10:00 Magnesium Hydroxide (Mom) Oral Liqd Udc PO Q4H PRN Constipation Naloxone HCl 0.1 mg 03/03/21 10:00 Naloxone 0.4 Mg/1 Ml Inj IV Q2MIN PRN Res Rate </= 8 or 02 SAT < 92% Nifedipine 90 mg 03/04/21 10:00 03/04/21 11:26 Nifedipine Xl 90 Mg Tab PO 90 mg QDAY KARINA Administration Ondansetron HCl 4 mg 03/03/21 10:00 Ondansetron 4 Mg/2 Ml Inj IV Q4H PRN Nausea And Vomiting Oxycodone/Acetaminophen 1 tab 03/03/21 10:00 Oxycodone /Acetaminophen 5-325mg Tab PO Q6H PRN Pain, Moderate (4-6) Sodium Chloride 10 ml 03/03/21 10:00 03/04/21 11:27 Sodium Chloride 0.9% 10 Ml Flush Syringe IV 10 ml BID KARINA Administration Sodium Chloride 10 ml 03/03/21 10:00 Sodium Chloride 0.9% 10 Ml Flush Syringe IV PRN PRN LINE FLUSH Nutrition/Malnutrition Assess - Dietary Evaluation Nutrition/Malnutrition Findings: Nutrition Notes Start: 03/03/21 12:29 Freq: Status: Active Protocol: Document 03/03/21 12:29 RADHA (Rec: 03/03/21 12:31 RADHA [id number]) Nutrition Notes Need for Assessment generated from: MD Order,Education Initial or Follow up Brief Note Current Diagnosis Hypertension,Stroke Current Diet Consistent CHO Subjective/Other Information RD consulted for diet education and NTR recommendations. Pt in ED at this time. BP >140/90 since admission. Burn Absent Trauma Absent Nutrition Intervention Follow-Up By: 10/19/21 Additional Comments F/U: diet education needs (Low sodium/CHO-controlled)
[2021-03-05] MEDS: LEVOTHYROXINE 150 MCG TAB PO SCH (05:43)
[2021-03-05] MEDS: HEPARIN 5,000 UNIT/1 ML VIAL SUB-Q SCH ×3 (05:43→22:21)
[2021-03-05] MEDS: INSULIN LISPRO 100 UNIT/ML SUB-Q SCH ×4 (08:00→22:22)
--- NOTE | 2021-03-05 08:59 | Discharge Summary ---
Providers - Providers Date of Admission: 03/03/21 06:05 Attending physician: ARIANNE LAMBERT MD 03/03/21 07:37 Consult to Physician [CONS] Routine Comment: Consulting Provider: MARTINEZ STEWART Physician Instructions: Reason For Exam: CVA Occupational Therapy Evaluate and Treat [CONS] Routine Comment: Reason For Exam: Neuro deficits Physical Therapy Evaluation and Treat [CONS] Routine Comment: Reason For Exam: Neuro deficits 03/03/21 07:41 Speech Therapy Evaluation and Treat [CONS] Routine Reason For Exam: swallow eval 03/03/21 07:42 Consult to Dietitian/Nutrition [CONS] Routine Physician Instructions: Reason For Exam: Reason for Consult: Nutrition Recommendations Reason for Consult: Diet education Primary care physician: ESTEE YOUNGER Hospitalization Reason for admission: cva Condition: Stable Hospital course: Patient is a 50-year-old male with past medical history of hypertension, diabetes mellitus, 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 Also has a history of hypothyroidism presents today with complaint of slurred speech right face arm and leg weakness which started about 1700 the day before presentation. He reports that has been compliant with his Plavix but is not on aspirin although tells me that he take statin but later told the neurologist that he did not. In the ER he was treated as a code stroke as he was noted to have right arm weakness and slurred speech. Apart from physical finding initial imaging study showed MPRESSION: 1. Age- indeterminate left basal ganglia lacunar infarct. 2. Mild microangiopathy 3. Several tiny old lacunar infarcts right caudate and right anterior limb internal capsule 4. No intracranial bleed or large acute territorial infarction EKG shows normal: sinus rhythm Rate: normal Acute ischemic stroke although imaging studies showing lacunar infarcts with no large bleed. Hypertension will go with permissive hypertension for the next 72 hours Diabetes mellitus Morbid obesity Dysarthria/dysphagia Right-sided weakness Unsteady gait Plan Admitted telemetry and treated resume his Plavix will increase statin to 80 mg. We will also start on aspirin 325 mg p.o. daily. As noted above we will do prep aggressive hyper pressure for the next 72hours. Will obtain a PT OT speech and swallow evaluation. We will also obtain an MRI of the brain without contrast. Hydralazine as needed if blood pressure greater than 200 systolic. Fall precautions Consult neurology Seizure precautions Accu-Cheks before meals and at bedtime following successful speech evaluation if not we will do every 6 hours DVT and GI prophylaxis Plan discussed in detail with the patient 03/04: MRI confirms acute stroke. Continue permissive hypertension for the next 24 hours. Speech therapy noted. Anticipate discharge to acute rehab if authorization granted in a.m. Patient tolerating diet. Carotid ultrasound did not show any requirement for intervention, plan discussed with the patient in detail. 03/05: Patient cleared for discharge but awaiting Placement and Home, has this is a late entry for yesterday. 03/06: AWAITING PLACEMENT 03/07: BP better, continue supportive care, awaiting placement 03/08: Patient seen and examined, stable for discharge to IRU for continued rehab management. Counselling provided Disposition: [facility] Final Discharge Diagnosis (Prints w/discharge instructions): CVA Time spent for discharge: 35 mins Core Measure Documentation - Palliative Care Palliative Care/ Comfort Measures: Not Applicable - Core Measures Any of the following diagnoses?: stroke - Stroke Discharge Requirements Statin for LDL = or >70 mg/dl on DC: Yes Anticoag for atrial fib/atrial flutter: Not Applicable Antithrombotic for ischemic stroke: Yes Exam - Physical Exam Narrative exam: GENERAL: The patient is well-developed well-nourished male HEENT: Normocephalic. Atraumatic. Extraocular motions are intact. Patient has moist mucous membranes. NECK: Supple. Trachea midline CHEST/LUNGS: Clear to auscultation. There is no respiratory distress noted. HEART/CARDIOVASCULAR: Regular. There is no tachycardia. There is no gallop rub or murmur. ABDOMEN: Abdomen is soft, nontender. Patient has normal bowel sounds. There is no abdominal distention. SKIN: There is no rash. There is no edema. There is no diaphoresis. NEURO: The patient is awake, alert, and oriented. The patient is cooperative. Cranial nerves II through XII grossly intact. T motor strength improved to 4/5 from the right upper extremity. Still some speech impairment but improved. Facial droop not visible anymore MUSCULOSKELETAL: There is no evidence of acute injury. - Constitutional Vitals: Temp Pulse Resp BP Pulse Ox 98.1 F 94 H 20 154/78 97 03/04/21 23:43 03/04/21 23:43 03/04/21 23:43 03/04/21 23:43 03/05/21 01:49 Plan Activity: advance as tolerated, fall precautions Diet: low fat Special Instructions: record daily weights, record daily BP diary Follow up with: ESTEE YOUNGER MD [Primary Care Provider] - 3-5 Days GROVER GARCIAS MD [Staff Physician] - 7 Days Prescriptions: AtorvaSTATin [Lipitor] 80 mg PO QHS #60 tablet Aspirin 325 mg PO QDAY #30 tablet
[2021-03-05] MEDS: CLOPIDOGREL 75 MG TAB PO SCH (11:00)
[2021-03-05] MEDS: NIFEdipine XL 90 MG TAB PO SCH (11:00)
[2021-03-05] MEDS: LISINOPRIL 10 MG TAB PO SCH (11:00)
[2021-03-05] MEDS: ASPIRIN 325 MG TAB PO SCH (11:00)
[2021-03-06] MEDS: HEPARIN 5,000 UNIT/1 ML VIAL SUB-Q SCH ×3 (05:49→22:55)
[2021-03-06] MEDS: LEVOTHYROXINE 150 MCG TAB PO SCH (05:49)
[2021-03-06] MEDS: INSULIN LISPRO 100 UNIT/ML SUB-Q SCH ×4 (08:00→22:55)
[2021-03-06] MEDS: ASPIRIN 325 MG TAB PO SCH (09:34)
[2021-03-06] MEDS: NIFEdipine XL 90 MG TAB PO SCH (09:34)
[2021-03-06] MEDS: LISINOPRIL 10 MG TAB PO SCH (09:34)
[2021-03-06] MEDS: CLOPIDOGREL 75 MG TAB PO SCH (09:34)
--- NOTE | 2021-03-06 12:50 | Progress Note ---
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 Also has a history of hypothyroidism presents today with complaint of slurred speech right face arm and leg weakness which started about 1700 the day before presentation. He reports that has been compliant with his Plavix but is not on aspirin although tells me that he take statin but later told the neurologist that he did not. In the ER he was treated as a code stroke as he was noted to have right arm weakness and slurred speech. Apart from physical finding initial imaging study showed MPRESSION: 1. Age-in determinate left basal ganglia lacunar infarct. 2. Mild microangiopathy 3. Several tiny old lacunar infarcts right caudate and right anterior limb internal capsule 4. No intracranial bleed or large acute territorial infarction EKG shows normal: sinus rhythm Rate: normal Acute ischemic stroke although imaging studies showing lacunar infarcts with no large bleed. Hypertension will go with permissive hypertension for the next 72 hours Diabetes mellitus Morbid obesity Dysarthria/dysphagia Right-sided weakness Unsteady gait Plan Admit to telemetry we will resume his Plavix will increase statin to 80 mg. We will also start on aspirin 325 mg p.o. daily. As noted above we will do prep aggressive hyper pressure for the next 72hours. Will obtain a PT OT speech and swallow evaluation. We will also obtain an MRI of the brain without contrast. Hydralazine as needed if blood pressure greater than 200 systolic. Fall precautions Consult neurology Seizure precautions Accu-Cheks before meals and at bedtime following successful speech evaluation if not we will do every 6 hours DVT and GI prophylaxis Plan discussed in detail with the patient 03/04: MRI confirms acute stroke. Continue permissive hypertension for the next 24 hours. Speech therapy noted. Anticipate discharge to acute rehab if authorization granted in a.m. Patient tolerating diet. Carotid ultrasound did not show any requirement for intervention, plan discussed with the patient in detail. 03/05: Patient cleared for discharge but awaiting Placement and Home, has this is a late entry for yesterday. History Interval history: Patient seen and examined this morning reports some good improvement in speech Hospitalist Physical - Physical exam Narrative exam: GENERAL: The patient is well-developed well-nourished male HEENT: Normocephalic. Atraumatic. Extraocular motions are intact. Patient has moist mucous membranes. NECK: Supple. Trachea midline CHEST/LUNGS: Clear to auscultation. There is no respiratory distress noted. HEART/CARDIOVASCULAR: Regular. There is no tachycardia. There is no gallop rub or murmur. ABDOMEN: Abdomen is soft, nontender. Patient has normal bowel sounds. There is no abdominal distention. SKIN: There is no rash. There is no edema. There is no diaphoresis. NEURO: The patient is awake, alert, and oriented. The patient is cooperative. Cranial nerves II through XII grossly intact. T motor strength improved to 4/5 from the right upper extremity. Still some speech impairment but improved. Facial droop not visible anymore MUSCULOSKELETAL: There is no evidence of acute injury. - Constitutional Vitals: Temp Pulse Resp BP Pulse Ox 98.1 F 91 H 18 157/93 99 03/06/21 11:52 03/06/21 11:52 03/06/21 11:52 03/06/21 11:52 03/06/21 11:52 Results - Labs CBC & Chem 7: 03/04/21 04:00 03/04/21 04:00 Labs: Laboratory Last Values WBC 9.6 K/mm3 (4.5-11.0) 03/04/21 04:00 RBC 4.63 M/mm3 (3.65-5.03) 03/04/21 04:00 Hgb 13.3 gm/dl (11.8-15.2) 03/04/21 04:00 Hct 39.3 % (35.5-45.6) 03/04/21 04:00 MCV 85 fl (84-94) 03/04/21 04:00 MCH 29 pg (28-32) 03/04/21 04:00 MCHC 34 % (32-34) 03/04/21 04:00 RDW 13.5 % (13.2-15.2) 03/04/21 04:00 Plt Count 190 K/mm3 (140-440) 03/04/21 04:00 Lymph % (Auto) 16.4 % (13.4-35.0) 03/04/21 04:00 [place] % (Auto) 5.9 % (0.0-7.3) 03/04/21 04:00 Eos % (Auto) 0.6 % (0.0-4.3) 03/04/21 04:00 Baso % (Auto) 0.4 % (0.0-1.8) 03/04/21 04:00 Lymph # (Auto) 1.6 K/mm3 (1.2-5.4) 03/04/21 04:00 [place] # (Auto) 0.6 K/mm3 (0.0-0.8) 03/04/21 04:00 Eos # (Auto) 0.1 K/mm3 (0.0-0.4) 03/04/21 04:00 Baso # (Auto) 0.0 K/mm3 (0.0-0.1) 03/04/21 04:00 Seg Neutrophils % 76.7 % (40.0-70.0) H 03/04/21 04:00 Seg Neutrophils # 7.4 K/mm3 (1.8-7.7) 03/04/21 04:00 PT 13.7 Sec. (12.2-14.9) 03/03/21 04:21 INR 0.95 (0.87-1.13) 03/03/21 04:21 APTT 27.9 Sec. (24.2-36.6) 03/03/21 04:21 Thrombin Time 16.6 Sec. (15.1-19.6) 03/03/21 04:21 Sodium 141 mmol/L (137-145) 03/04/21 04:00 Potassium 3.4 mmol/L (3.6-5.0) L 03/04/21 04:00 Chloride 103.4 mmol/L (98-107) 03/04/21 04:00 Carbon Dioxide 23 mmol/L (22-30) 03/04/21 04:00 Anion Gap 18 mmol/L 03/04/21 04:00 BUN 18 mg/dL (9-20) 03/04/21 04:00 Creatinine 1.0 mg/dL (0.8-1.3) 03/04/21 04:00 Estimated GFR > 60 ml/min 03/04/21 04:00 BUN/Creatinine Ratio 18 % 03/04/21 04:00 Glucose 227 mg/dL (75-100) H 03/04/21 04:00 POC Glucose 192 mg/dL (70-105) H 03/06/21 11:53 Hemoglobin A1c 11.5 % (4-6) H 03/04/21 Unknown Calcium 9.9 mg/dL (8.4-10.2) 03/04/21 04:00 Triglycerides 166 mg/dL (2-149) H 03/04/21 04:00 Cholesterol 216 mg/dL (50-199) H 03/04/21 04:00 LDL Cholesterol Direct 155 mg/dL (50-130) H 03/04/21 04:00 HDL Cholesterol 30 mg/dL (40-59) L 03/04/21 04:00 Cholesterol/HDL Ratio 7.20 % 03/04/21 04:00 [place]/IV: Voiding Method Urinal Active Medications - Current Medications Current Medications: Generic Name Dose Route Start Last Admin Trade Name Freq PRN Reason Stop Dose Admin Acetaminophen 650 mg 03/03/21 09:00 Acetaminophen 325 Mg Tab PO Q4H PRN Pain MILD(1-3)/Fever >100.5/WOLFF Albuterol 2.5 mg 03/03/21 08:00 Albuterol 2.5 Mg/3 Ml Nebu IH Q4HRT PRN Shortness Of Breath Aspirin 325 mg 03/04/21 10:00 03/06/21 09:34 Aspirin 325 Mg Tab PO 325 mg QDAY KARINA Administration Atorvastatin Calcium 80 mg 03/03/21 22:00 03/05/21 22:21 Atorvastatin 40 Mg Tab PO 80 mg QHS KARINA Administration Clopidogrel Bisulfate 75 mg 03/03/21 10:00 03/06/21 09:34 Clopidogrel 75 Mg Tab PO 75 mg QDAY KARINA Administration Dextrose 50 ml 03/03/21 08:00 Dextrose 50% In Water (25gm) 50 Ml Syringe IV Q30MIN PRN Hypoglycemia Protocol Heparin Sodium (Porcine) 5,000 unit 03/03/21 14:00 03/06/21 05:49 Heparin 5,000 Unit/1 Ml Vial SUB-Q 5,000 unit Q8HR KARINA Administration Hydralazine HCl 10 mg 03/03/21 10:00 03/04/21 03:50 Hydralazine 20 Mg/1 Ml Inj IV 10 mg Q4HR PRN Administration Hypertension Insulin Human Lispro 0 unit 03/03/21 11:30 03/06/21 08:00 Insulin Lispro 100 Unit/Ml SUB-Q 1 unit ACHS KARINA Administration Protocol Levothyroxine Sodium 300 mcg 03/03/21 10:00 03/06/21 05:49 Levothyroxine 150 Mcg Tab PO 300 mcg DAILY@0600 KARINA Administration Lisinopril 30 mg 03/04/21 10:00 03/06/21 09:34 Lisinopril 10 Mg Tab PO 30 mg QDAY KARINA Administration Magnesium Hydroxide 30 ml 03/03/21 10:00 Magnesium Hydroxide (Mom) Oral Liqd Udc PO Q4H PRN Constipation Naloxone HCl 0.1 mg 03/03/21 10:00 Naloxone 0.4 Mg/1 Ml Inj IV Q2MIN PRN Res Rate </= 8 or 02 SAT < 92% Nifedipine 90 mg 03/04/21 10:00 03/06/21 09:34 Nifedipine Xl 90 Mg Tab PO 90 mg QDAY KARINA Administration Ondansetron HCl 4 mg 03/03/21 10:00 Ondansetron 4 Mg/2 Ml Inj IV Q4H PRN Nausea And Vomiting Oxycodone/Acetaminophen 1 tab 03/03/21 10:00 Oxycodone /Acetaminophen 5-325mg Tab PO Q6H PRN Pain, Moderate (4-6) Sodium Chloride 10 ml 03/03/21 10:00 03/06/21 09:36 Sodium Chloride 0.9% 10 Ml Flush Syringe IV 10 ml BID KARINA Administration Sodium Chloride 10 ml 03/03/21 10:00 Sodium Chloride 0.9% 10 Ml Flush Syringe IV PRN PRN LINE FLUSH Nutrition/Malnutrition Assess - Dietary Evaluation Nutrition/Malnutrition Findings: Nutrition Notes Start: 03/03/21 12:29 Freq: Status: Active Protocol: Document 03/03/21 12:29 RADHA (Rec: 03/03/21 12:31 [facility] [id number]) Nutrition Notes Need for Assessment generated from: MD Order,Education Initial or Follow up Brief Note Current Diagnosis Hypertension,Stroke Current Diet Consistent CHO Subjective/Other Information RD consulted for diet education and NTR recommendations. Pt in ED at this time. BP >140/90 since admission. Burn Absent Trauma Absent Nutrition Intervention Follow-Up By: 03/09/21 Additional Comments F/U: diet education needs (Low sodium/CHO-controlled)
[2021-03-07] MEDS: HEPARIN 5,000 UNIT/1 ML VIAL SUB-Q SCH ×3 (06:34→22:59)
[2021-03-07] MEDS: LEVOTHYROXINE 150 MCG TAB PO SCH (06:35)
[2021-03-07] MEDS: INSULIN LISPRO 100 UNIT/ML SUB-Q SCH ×4 (08:12→22:58)
[2021-03-07] MEDS: CLOPIDOGREL 75 MG TAB PO SCH (10:13)
[2021-03-07] MEDS: NIFEdipine XL 90 MG TAB PO SCH (10:13)
[2021-03-07] MEDS: ASPIRIN 325 MG TAB PO SCH (10:13)
[2021-03-07] MEDS: LISINOPRIL 10 MG TAB PO SCH (10:14)
--- NOTE | 2021-03-07 10:22 | Progress Note ---
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 Also has a history of hypothyroidism presents today with complaint of slurred speech right face arm and leg weakness which started about 1700 the day before presentation. He reports that has been compliant with his Plavix but is not on aspirin although tells me that he take statin but later told the neurologist that he did not. In the ER he was treated as a code stroke as he was noted to have right arm weakness and slurred speech. Apart from physical finding initial imaging study showed MPRESSION: 1. Age-in determinate left basal ganglia lacunar infarct. 2. Mild microangiopathy 3. Several tiny old lacunar infarcts right caudate and right anterior limb internal capsule 4. No intracranial bleed or large acute territorial infarction EKG shows normal: sinus rhythm Rate: normal Acute ischemic stroke although imaging studies showing lacunar infarcts with no large bleed. Hypertension will go with permissive hypertension for the next 72 hours Diabetes mellitus Morbid obesity Dysarthria/dysphagia Right-sided weakness Unsteady gait Plan Admit to telemetry we will resume his Plavix will increase statin to 80 mg. We will also start on aspirin 325 mg p.o. daily. As noted above we will do prep aggressive hyper pressure for the next 72hours. Will obtain a PT OT speech and swallow evaluation. We will also obtain an MRI of the brain without contrast. Hydralazine as needed if blood pressure greater than 200 systolic. Fall precautions Consult neurology Seizure precautions Accu-Cheks before meals and at bedtime following successful speech evaluation if not we will do every 6 hours DVT and GI prophylaxis Plan discussed in detail with the patient 03/04: MRI confirms acute stroke. Continue permissive hypertension for the next 24 hours. Speech therapy noted. Anticipate discharge to acute rehab if authorization granted in a.m. Patient tolerating diet. Carotid ultrasound did not show any requirement for intervention, plan discussed with the patient in detail. 03/05: Patient cleared for discharge but awaiting Placement and Home, has this is a late entry for yesterday. 03/06: AWAITING PLACEMENT 03/07: BP better, continue supportive care, awaiting placement History Interval history: Patient seen and examined this morning reports some good improvement in speech, MOVING ALL LIMBS ALTHOUGH STILL WEEK ON RIGHT Hospitalist Physical - Physical exam Narrative exam: GENERAL: The patient is well-developed well-nourished male HEENT: Normocephalic. Atraumatic. Extraocular motions are intact. Patient has moist mucous membranes. NECK: Supple. Trachea midline CHEST/LUNGS: Clear to auscultation. There is no respiratory distress noted. HEART/CARDIOVASCULAR: Regular. There is no tachycardia. There is no gallop rub or murmur. ABDOMEN: Abdomen is soft, nontender. Patient has normal bowel sounds. There is no abdominal distention. SKIN: There is no rash. There is no edema. There is no diaphoresis. NEURO: The patient is awake, alert, and oriented. The patient is cooperative. Cranial nerves II through XII grossly intact. T motor strength improved to 4/5 from the right upper extremity. Still some speech impairment but improved. Facial droop not visible anymore MUSCULOSKELETAL: There is no evidence of acute injury. - Constitutional Vitals: Temp Pulse Resp BP Pulse Ox 98.8 F 84 18 138/74 98 03/07/21 03:17 03/07/21 04:00 03/07/21 03:17 03/07/21 03:17 03/07/21 03:17 Results - Labs CBC & Chem 7: 03/04/21 04:00 03/04/21 04:00 Labs: Laboratory Last Values WBC 9.6 K/mm3 (4.5-11.0) 03/04/21 04:00 RBC 4.63 M/mm3 (3.65-5.03) 03/04/21 04:00 Hgb 13.3 gm/dl (11.8-15.2) 03/04/21 04:00 Hct 39.3 % (35.5-45.6) 03/04/21 04:00 MCV 85 fl (84-94) 03/04/21 04:00 MCH 29 pg (28-32) 03/04/21 04:00 MCHC 34 % (32-34) 03/04/21 04:00 RDW 13.5 % (13.2-15.2) 03/04/21 04:00 Plt Count 190 K/mm3 (140-440) 03/04/21 04:00 Lymph % (Auto) 16.4 % (13.4-35.0) 03/04/21 04:00 [place] % (Auto) 5.9 % (0.0-7.3) 03/04/21 04:00 Eos % (Auto) 0.6 % (0.0-4.3) 03/04/21 04:00 Baso % (Auto) 0.4 % (0.0-1.8) 03/04/21 04:00 Lymph # (Auto) 1.6 K/mm3 (1.2-5.4) 03/04/21 04:00 [place] # (Auto) 0.6 K/mm3 (0.0-0.8) 03/04/21 04:00 Eos # (Auto) 0.1 K/mm3 (0.0-0.4) 03/04/21 04:00 Baso # (Auto) 0.0 K/mm3 (0.0-0.1) 03/04/21 04:00 Seg Neutrophils % 76.7 % (40.0-70.0) H 03/04/21 04:00 Seg Neutrophils # 7.4 K/mm3 (1.8-7.7) 03/04/21 04:00 PT 13.7 Sec. (12.2-14.9) 03/03/21 04:21 INR 0.95 (0.87-1.13) 03/03/21 04:21 APTT 27.9 Sec. (24.2-36.6) 03/03/21 04:21 Thrombin Time 16.6 Sec. (15.1-19.6) 03/03/21 04:21 Sodium 141 mmol/L (137-145) 03/04/21 04:00 Potassium 3.4 mmol/L (3.6-5.0) L 03/04/21 04:00 Chloride 103.4 mmol/L (98-107) 03/04/21 04:00 Carbon Dioxide 23 mmol/L (22-30) 03/04/21 04:00 Anion Gap 18 mmol/L 03/04/21 04:00 BUN 18 mg/dL (9-20) 03/04/21 04:00 Creatinine 1.0 mg/dL (0.8-1.3) 03/04/21 04:00 Estimated GFR > 60 ml/min 03/04/21 04:00 BUN/Creatinine Ratio 18 % 03/04/21 04:00 Glucose 227 mg/dL (75-100) H 03/04/21 04:00 POC Glucose 130 mg/dL (70-105) H 03/07/21 08:01 Hemoglobin A1c 11.5 % (4-6) H 03/04/21 Unknown Calcium 9.9 mg/dL (8.4-10.2) 03/04/21 04:00 Triglycerides 166 mg/dL (2-149) H 03/04/21 04:00 Cholesterol 216 mg/dL (50-199) H 03/04/21 04:00 LDL Cholesterol Direct 155 mg/dL (50-130) H 03/04/21 04:00 HDL Cholesterol 30 mg/dL (40-59) L 03/04/21 04:00 Cholesterol/HDL Ratio 7.20 % 03/04/21 04:00 [place]/IV: Voiding Method Urinal Active Medications - Current Medications Current Medications: Generic Name Dose Route Start Last Admin Trade Name Freq PRN Reason Stop Dose Admin Acetaminophen 650 mg 03/03/21 09:00 Acetaminophen 325 Mg Tab PO Q4H PRN Pain MILD(1-3)/Fever >100.5/WOLFF Albuterol 2.5 mg 03/03/21 08:00 Albuterol 2.5 Mg/3 Ml Nebu IH Q4HRT PRN Shortness Of Breath Aspirin 325 mg 03/04/21 10:00 03/07/21 10:13 Aspirin 325 Mg Tab PO 325 mg QDAY KARINA Administration Atorvastatin Calcium 80 mg 03/03/21 22:00 03/06/21 22:55 Atorvastatin 40 Mg Tab PO 80 mg QHS KARINA Administration Clopidogrel Bisulfate 75 mg 03/03/21 10:00 03/07/21 10:13 Clopidogrel 75 Mg Tab PO 75 mg QDAY KARINA Administration Dextrose 50 ml 03/03/21 08:00 Dextrose 50% In Water (25gm) 50 Ml Syringe IV Q30MIN PRN Hypoglycemia Protocol Heparin Sodium (Porcine) 5,000 unit 03/03/21 14:00 03/07/21 06:34 Heparin 5,000 Unit/1 Ml Vial SUB-Q 5,000 unit Q8HR KARINA Administration Hydralazine HCl 10 mg 03/03/21 10:00 03/04/21 03:50 Hydralazine 20 Mg/1 Ml Inj IV 10 mg Q4HR PRN Administration Hypertension Insulin Human Lispro 0 unit 03/03/21 11:30 03/07/21 08:12 Insulin Lispro 100 Unit/Ml SUB-Q Not Given ACHS [facility] Protocol Levothyroxine Sodium 300 mcg 03/03/21 10:00 03/07/21 06:35 Levothyroxine 150 Mcg Tab PO 300 mcg DAILY@0600 KARINA Administration Lisinopril 30 mg 03/04/21 10:00 03/07/21 10:14 Lisinopril 10 Mg Tab PO 30 mg QDAY KARINA Administration Magnesium Hydroxide 30 ml 03/03/21 10:00 Magnesium Hydroxide (Mom) Oral Liqd Udc PO Q4H PRN Constipation Naloxone HCl 0.1 mg 03/03/21 10:00 Naloxone 0.4 Mg/1 Ml Inj IV Q2MIN PRN Res Rate </= 8 or 02 SAT < 92% Nifedipine 90 mg 03/04/21 10:00 03/07/21 10:13 Nifedipine Xl 90 Mg Tab PO 90 mg QDAY KARINA Administration Ondansetron HCl 4 mg 03/03/21 10:00 Ondansetron 4 Mg/2 Ml Inj IV Q4H PRN Nausea And Vomiting Oxycodone/Acetaminophen 1 tab 03/03/21 10:00 Oxycodone /Acetaminophen 5-325mg Tab PO Q6H PRN Pain, Moderate (4-6) Sodium Chloride 10 ml 03/03/21 10:00 03/06/21 22:55 Sodium Chloride 0.9% 10 Ml Flush Syringe IV 10 ml BID KARINA Administration Sodium Chloride 10 ml 03/03/21 10:00 Sodium Chloride 0.9% 10 Ml Flush Syringe IV PRN PRN LINE FLUSH Nutrition/Malnutrition Assess - Dietary Evaluation Nutrition/Malnutrition Findings: Nutrition Notes Start: 03/03/21 12:29 Freq: Status: Active Protocol: Document 03/03/21 12:29 RADHA (Rec: 03/03/21 12:31 RADHA [id number]) Nutrition Notes Need for Assessment generated from: MD Order,Education Initial or Follow up Brief Note Current Diagnosis Hypertension,Stroke Current Diet Consistent CHO Subjective/Other Information RD consulted for diet education and NTR recommendations. Pt in ED at this time. BP >140/90 since admission. Burn Absent Trauma Absent Nutrition Intervention Follow-Up By: 03/09/21 Additional Comments F/U: diet education needs (Low sodium/CHO-controlled)
[2021-03-08 05:58] VITALS: BP 150/77
[2021-03-08] MEDS: LEVOTHYROXINE 150 MCG TAB PO SCH (06:26)
[2021-03-08] MEDS: HEPARIN 5,000 UNIT/1 ML VIAL SUB-Q SCH (06:26)
[2021-03-08] MEDS: ASPIRIN 325 MG TAB PO SCH (10:55)
[2021-03-08] MEDS: CLOPIDOGREL 75 MG TAB PO SCH (10:55)
[2021-03-08] MEDS: LISINOPRIL 10 MG TAB PO SCH (10:56)
[2021-03-08] MEDS: NIFEdipine XL 90 MG TAB PO SCH (10:56)
--- NOTE | 2021-03-10 14:18 | Electrocardiograph Report ---
[facility] Test Date: 2021-03-03 Test Time: 04:25:03 Pat Name: ERINN SMITH III Department: Room: A480 Gender: M Contract Associate Manager: DAINA MARIEEB: 1970 Requested By: JOVANA SOLROIO Order Number: [id number] Reading MD: Maegan Slater Measurements Intervals [place] Rate: 93 P: 27 LA: 184 QRS: 10 QRSD: 98 T: 52 QT: 361 QTc: 450 Interpretive Statements Sinus rhythm Probable old anteroseptal infarct, or poor R wave progression No previous ECG available for comparison Electronically Signed On 03-10-2021 14:18:47 EDT by Maegan Slater
== END 2021-03-08 16:29 | DRG 66 ==
LOC: ED 04:04 → 4A 06:05
PROVIDERS: ADMIT Internal Medicine Geriatric Medicine; ATTEND Internal Medicine
DX: I63.9 Cerebral infarction, unspecified (principal); I10 Essential (primary) hypertension; F17.200 Nicotine dependence, unspecified, uncomplicated; I16.0 Hypertensive urgency; E11.9 Type 2 diabetes mellitus without complications; E03.9 Hypothyroidism, unspecified; Z82.3 Family history of stroke; R26.81 Unsteadiness on feet; R47.1 Dysarthria and anarthria; E66.01 Morbid (severe) obesity due to excess calories; Z68.36 Body mass index [BMI] 36.0-36.9, adult; Z20.822 Contact with and (suspected) exposure to COVID-19
CPT/HCPCS: 36415; 70450; 70551; 80048; 80061; 82962; 83036; 85025; 85610; 85670; 85730; 93005; 93306; 93880; 94640; G0378; J0360; J1644; J1815

== ENCOUNTER 2021-03-08 13:48 | Inpatient (IN) | payer OTHER ==
[2021-03-08] MEDS ORDERED: ACETAMINOPHEN 325 MG TAB PO PRN (14:31)
[2021-03-08] MEDS ORDERED: HYDROcodone/ACETAMINOPHEN 5-325 MG TAB PO PRN (14:31)
[2021-03-08] MEDS ORDERED: DEXTROSE 50% IN WATER (25GM) 50 ML SYRINGE IV PRN (14:31)
[2021-03-08] MEDS ORDERED: ONDANSETRON 4 MG ODT TAB PO PRN (14:43)
[2021-03-08] MEDS ORDERED: hydrALAZINE 20 MG/1 ML INJ IV PRN (14:43)
[2021-03-08] MEDS ORDERED: POLYETHYLENE GLYCOL 3350 17 GM POWDER PO PRN (14:43)
[2021-03-08] MEDS ORDERED: ALBUTEROL 2.5 MG/3 ML NEBU IH PRN (14:43)
--- NOTE | 2021-03-08 15:06 | History and Physical Report ---
History of Present Illness Date: 03/08/21 Date of admission: 03/08/2021 Chief Complaint: CVA History of present illness: 50-year-old male with right-sided weakness starting the day prior to presentation to the ER was admitted for further treatment and suspicion of [facility] roke. Teleneurology was consulted and the patient was later seen by in-house neurology. In addition to the right-sided weakness the patient also had slurred speech. Compliance with medications was questionable, hemoglobin A1c was 11.5% and lipid panel was elevated across the board for triglycerides, cholesterol and LDL. Head CT showed left basal ganglia lacunar infarct, mild microangiopathy, s everal older tiny lacunar infarcts in the right caudate and right anterior limb of the internal capsule. Follow-up MRI brain showed an acute lacunar infarct in the posterior limb of the left internal capsule. Echo was performed but is awaiting reading at this time. Carotid Doppler showed less than 50% stenosis bilaterally. Patient was able to work with therapy and was felt to be a good rehab candidate. Dysarthria continues and he does have dysphagia continues on a modified diet as well. After the patient was medically stabilized they were transferred for further rehabilitation. All available medical records have been reviewed. Plan of care was discussed with patient. Past History Past Medical History: diabetes, hypertension, hyperlipidemia, hypothyroidism, stroke Past Surgical History: appendectomy, thyroidectomy Social history: , lives with family, full code. denies: smoking, alcohol abuse, prescription drug abuse Family history: CAD, diabetes, hypertension, stroke Medications and Allergies Allergies Allergy/AdvReac Type Severity Reaction Status Date / Time No Known Allergies Allergy Verified 03/03/21 04:22 Home Medications Medication Instructions Recorded Confirmed Last Taken Type Clopidogrel [Plavix] 75 mg PO QDAY 03/03/21 03/03/21 1 Day Ago History ~03/02/21 1 Levothyroxine Sodium [Synthroid] 300 mcg PO DAILY 03/03/21 03/03/21 1 Day Ago History ~03/02/21 1 Lisinopril [Zestril TAB] 30 mg PO QDAY 03/03/21 03/03/21 1 Day Ago History ~03/02/21 1 NIFEdipine [Adalat cc] 90 mg PO DAILY 03/03/21 03/03/21 1 Day Ago History ~03/02/21 1 glipiZIDE [Glucotrol] 5 mg PO QDAY 03/03/21 03/03/21 Unknown History Aspirin 325 mg PO QDAY #30 tablet 03/05/21 Unknown Rx AtorvaSTATin [Lipitor] 80 mg PO QHS #60 tablet 03/05/21 Unknown Rx Active Meds: Active Medications Acetaminophen (Acetaminophen 325 Mg Tab) 650 mg PO Q6H PRN PRN Reason: Pain MILD(1-3)/Fever >100.5/WOLFF Hydrocodone Bitart/Acetaminophen (Hydrocodone/Acetaminophen 5-325 Mg Tab) 1 each PO Q6H PRN PRN Reason: Pain, Moderate (4-6) Albuterol (Albuterol 2.5 Mg/3 Ml Nebu) 2.5 mg IH Q4HRT PRN PRN Reason: Shortness Of Breath Aspirin (Aspirin 325 Mg Tab) 325 mg PO QDAY [facility] Atorvastatin Calcium (Atorvastatin 40 Mg Tab) 80 mg PO QHS [facility] Bisacodyl (Bisacodyl 10 Mg Rect Supp) 10 mg OK QDAY PRN PRN Reason: Constipation Clopidogrel Bisulfate (Clopidogrel 75 Mg Tab) 75 mg PO QDAY [facility] Dextrose (Dextrose 50% In Water (25gm) 50 Ml Syringe) 50 ml IV Q30MIN PRN; Protocol PRN Reason: Hypoglycemia Enoxaparin Sodium (Enoxaparin 40 Mg/0.4 Ml Inj) 40 mg SUB-Q QDAY [facility] Hydralazine HCl (Hydralazine 20 Mg/1 Ml Inj) 10 mg IV Q4HR PRN PRN Reason: Hypertension Insulin Glargine (Insulin Glargine 100 Units/Ml) 5 units SUB-Q QHS [facility] Insulin Human Lispro (Insulin Lispro 100 Unit/Ml) 0 unit SUB-Q ACHS [facility]; Protocol Levothyroxine Sodium (Levothyroxine 150 Mcg Tab) 300 mcg PO DAILY@0600 [facility] Lisinopril (Lisinopril 20 Mg Tab) 30 mg PO QDAY [facility] Nifedipine (Nifedipine Xl 90 Mg Tab) 90 mg PO QDAY [facility] Ondansetron HCl (Ondansetron 4 Mg Odt Tab) 4 mg PO Q8H PRN PRN Reason: Nausea And Vomiting Polyethylene Glycol (Polyethylene Glycol 3350 17 Gm Powder) 17 gm PO QDAY PRN PRN Reason: Constipation Review of Systems All systems: negative (ROS negative for 10 systems except as noted below with pertinent positives and negatives.) Constitutional: no fever, no chills Ears, nose, mouth and throat: no decreased hearing Cardiovascular: no chest pain, no rapid/irregular heart beat, no edema Respiratory: no cough with sputum, no shortness of breath Gastrointestinal: no nausea, no vomiting, no diarrhea Musculoskeletal: limitation of motion, gait dysfunction Integumentary: no rash, no pruritis, no redness Neurological: paralysis, weakness, change in speech, gait dysfunction Psychiatric: no memory loss, no insomnia Exam - Exam Narrative exam: MUSCULOSKELETAL SPECIALTY EXAM CONSTITUTIONAL: Well developed, well nourished, appropriately groomed. LEFT hand dominant. LYMPHATIC: No appreciable abnormalities palpable in neck RESPIRATORY: Clear to auscultation bilaterally, no increased work of breathing CARDIOVASCULAR: Regular Rate/ Rhythm, no swelling, edema or tenderness in BUE or BLE. Pulses palpable in all extremities. All extremities warm. GI: + bowel sounds, soft, NTTP, nondistended. INTEGUMENTARY: Normal, no lesion, rash, masses or bruising noted in extremities. MUSCULOSKELETAL: BUE and BLE normal without defect, crepitus, subluxation, effusion, arthritic changes or TTP. R 4- /5 L 5 /5 ROM decreased on right Tone normal NEURO: CN II : Visual reddy full to confrontation CN II, III : PERRL CN III, IV, : EOMI (Right eye premorbidly dysconjugate) CN V : Facial sensation intact CN VII : Symmetric facial expressions and eye closure CN VIII : Hearing intact to finger rustle CN IX, X : Palate/uvula elevate midline, phonation normal CN XI : Intact shoulder shrug and head rotation CN XII : Tongue protrudes left Sensation intact in all extremities without extinction. Reflexes 2+ bilaterally at biceps, brachioradialis and patella. No clonus at ankles. Coordination intact in BUE. No tremor noted in 4 extremities. Naming and repetition intact. Follows 2 step commands. Aphasia not appreciated Dysarthria present Dysphagia present Neglect not appreciated POSTURE and GAIT: Sitting posture good. Balance and gait deferred until seen with therapy. PSYCH: Alert, oriented x3, affect appears euthymic. Insight appears intact. Assessment and Plan Assessment and plan: Patient was assessed and evaluated for Acute Inpatient Rehab Unit. Due to the patients above-mentioned medical complexity, along with decreased functional mobility and self care, this patient continues to require and be appropriate for a comprehensive, multidisciplinary [id number] rehabilitation program. These needs cannot be met in an outpatient or other less intensive setting. The patient would continue to benefit from skilled therapy intervention for at least 3 hours per day, five days a week, with techniques specific to the needs of the patient to improve function, activities of daily living, and reintegration into the community. The patient continues to require: -- OT to improve ROM, self-care, and learn use of adaptive equipment -- PT to improve strength and balance, functional transfers, and ambulation with energy conservation techniques to improve functional mobility -- ADVERTISING SALES AGENT to address cognitive deficits and swallowing ability -- 24 hour RN to ensure and prevent skin breakdown, promote progressive independence while ensuring safety, ensure education regarding medications, and incorporation of the rehabilitation at the bedside -- 24 hour Bail Attacher to coordinate this interdisciplinary program, and to manage/prevent complications as a result of the patients medical comorbidities. -Plan of care by day 4 -Weekly team conferences With such a program, there is a reasonable certainty that the goals individualized for this patient can be achieved within the specified length of stay. CVA: Continue Secondary Stroke Prevention (Antithrombotic, Statin (Goal LDL-C <70), BP control (Goal <140/90), GLU control (Goal A1c <7), and lifestyle modification). Monitor for recurrent stroke or post-stroke recrudescence. Continue neuromotor therapy as above. Family training when available. Monitor for post stroke depression, cognitive deficits, seizure, dysphagia, aphasia, shoulder hand syndrome, sensory deficits, spasticity, bowel/bladder deficits, sleep disturbance, vision deficits and DVT. Prognosis for recovery and Secondary Stroke Prevention discussed. Follow up with Neurology. No driving until cleared by Neurologist. Dysphagia: Continue speech therapy to improve patient's ability to tolerate normal diet. Continue modified diet and advance as tolerated. MBS/e-stim as determined by speech therapy. Dysarthria: Continue speech therapy to improve patient's ability to control speech and effectively communicate. Hypertension: Patient's blood pressure has been elevated on the acute care side despite best efforts. Will monitor response to medications and look to adjust over the coming days. Goal blood pressure less than 140/90 while avoiding hypotension. Adjust medications as needed for normotension Diabetes type 2, poorly controlled: Hemoglobin A1c 11.5 on admission. Patient previously on glipizide. In-house, patient has only been on sliding scale insulin. We will look to start basal Lantus and monitor patient's response. May revert back to glipizide if patient can be compliant with the medication. Hyperlipidemia: Does not appear the patient was taking statins. Will discuss further the seriousness of secondary stroke prevention and continue patient on high-dose statin. Hypothyroidism: Patient states he had thyroidectomy in the past and is currently on Synthroid for replacement therapy. Does not appear that a recent TSH or T4 has been obtained, will order for in the morning. Continue to monitor. ADL dysfunction: OT will work on improving ability to perform ADLs (including assistive devices) to increase independence and decrease caregiver burden and improve functional transfers and mobility training. Difficulty walking: PT will work on gait training and proper use of assistive devices and advance as appropriate to use of stairs and outside ambulation on uneven surfaces. Unsteadiness on feet: PT will work on improving static and dynamic sitting and standing balance as well as proper use of assistive devices to decrease risk of falls. Abnormality of gait: PT will work to improve safety and efficiency of gait through neuromotor training and gait training along with instruction on proper use of assistive devices. Muscle weakness: PT & OT will work on strengthening exercises to improve functional strength including mixture of closed and open kinetic chain exercises. Debility: PT & OT will work on improving overall functional status to improve participation with ADLs, mobility and social involvement. Fatigue: PT & OT will work on improving endurance through aerobic exercises and therapeutic activity while monitoring patients tolerance for activity and vital signs as needed. DVT ppx: Lovenox Pain: Continue physical modalities in therapy and pain medications as needed to achieve functional pain control. Sleep: Monitor and address as needed. Bowel: Monitor and address as needed. Appetite: Monitor and address as needed. Discharge planning: Pending therapy progress and care plan meeting. Will continue discussion with therapy team, SW, patient and family. Restrictions/ Precautions: Falls, aspiration WB status: FWB Functional Hx: ADLs: Independent Cognition: Independent Mobility: No AD Barriers to Discharge: Decreased mobility and ability to perform self care, balance deficits, weakness Estimated Length of Stay: 14-18 days Discharge Destination: Home with family POST ADMISSION PHYSICIAN EVALUATION I have examined the patient and find that functional status, medical condition and appropriateness for IRF admission are essentially unchanged from those described in the preadmission screening. Will monitor for worsening neurologic dysfunction, shoulder-hand syndrome, post stroke depression, aspiration, worsening dysphagia, DVT/PE, bowel and bladder complications and complications due to hypertension, hyperglycemia, and electrolyte abnormalities. Will attempt to avoid occurrence of these issues or treat them if they present themselves.
[2021-03-08] MEDS ORDERED: INSULIN GLARGINE 100 UNITS/ML SUB-Q SCH (22:00)
[2021-03-08] MEDS: INSULIN LISPRO 100 UNIT/ML SUB-Q SCH (22:13)
[2021-03-09] MEDS ORDERED: LEVOTHYROXINE 150 MCG TAB PO SCH ×2 (06:00→10:10)
[2021-03-09 07:22] LABS: Basophils % (Auto) 0.5 % (0.0-1.8); Eosinophils # (Auto) 0.2 K/mm3 (0.0-0.4); Eosinophils % (Auto) 2.7 % (0.0-4.3); Hematocrit 39.3 % (35.5-45.6); Hemoglobin 13.2 gm/dl (11.8-15.2); Lymphocytes # (Auto) 2.7 K/mm3 (1.2-5.4); Lymphocytes % (Auto) 37.9 % (13.4-35.0); Mean Corpuscular HGB Conc 34 % (32-34); Mean Corpuscular Volume 86 fl (84-94); Monocytes # (Auto) 0.5 K/mm3 (0.0-0.8); Monocytes % (Auto) 6.8 % (0.0-7.3); Platelet Count 191 K/mm3 (140-440); Red Blood Count 4.59 M/mm3 (3.65-5.03); Red Cell Distribution Width 13.6 % (13.2-15.2)
[2021-03-09 07:43] LABS: Alanine Aminotransferase 37 units/L (7-56); BUN/Creatinine Ratio 28; Blood Urea Nitrogen 25 mg/dL (9-20); Calcium 9.5 mg/dL (8.4-10.2); Hemolysis Index 6
[2021-03-09 07:53] LABS: Free T4 (Free Thyroxine) 1.79 ng/dL (0.76-1.46)
[2021-03-09] MEDS: INSULIN LISPRO 100 UNIT/ML SUB-Q SCH ×4 (08:55→22:08)
[2021-03-09] MEDS: metFORMIN 500 MG TAB PO SCH ×2 (09:10→18:40)
--- NOTE | 2021-03-09 10:23 | Progress Note ---
Subjective Date of service: 03/09/21 Principal diagnosis: CVA Interval history: 50-year-old male with right-sided weakness starting the day prior to presentation to the ER was admitted for further treatment and suspicion of stroke. Teleneurology was consulted and the patient was later seen by in-house neurology. In addition to the right-sided weakness the patient also had slurred speech. Compliance with medications was questionable, hemoglobin A1c was 11.5% and lipid panel was elevated across the board for triglycerides, cholesterol and LDL. Head CT showed left basal ganglia lacunar infarct, mild microangiopathy, several older tiny lacunar infarcts in the right caudate and right anterior limb of the internal capsule. Follow-up MRI brain showed an acute lacunar infarct in the posterior limb of the left internal capsule. Echo was performed but is awaiting reading at this time. Carotid Doppler showed less than 50% stenosis bilaterally. Patient was able to work with therapy and was felt to be a good rehab candidate. Dysarthria continues and he does have dysphagia continues on a modified diet as well. After the patient was medically stabilized they were transferred for further rehabilitation. All available medical records have been reviewed. Plan of care was discussed with patient. Interval History: Patient is participating in therapy and making reasonable progress. Taking rest breaks as needed. -BM. Denies pain, palpitations, dyspnea, cough, N/V, or joint pain. CVA: Continue secondary stroke prevention. Discussed importance of secondary prevention with the patient again today and will continue discussion on a regular basis while the patient is on inpatient rehab. Continue to monitor for any signs of post stroke depression, shoulder-hand syndrome, bowel/bladder deficits, sleep disturbance, DVT. Dysphagia: OT reported some coughing while patient was taking pills. We will continue VISITING TEACHER for improvement in ability to swallow and advancement of diet in the future. MBS/e-stim as needed. Dysarthria: Patient is fairly understandable but still has deficits present. Continue speech therapy in order to improve patient's ability to clearly communicate. Hypertension, poorly controlled: Patient states that he was not completely compliant with medications at home. Remains elevated. He did state that his PCP added HCTZ just prior to having the stroke which he is not currently on. We will start that and continue to monitor and adjust medications as needed. Next change will likely be to increase lisinopril to 40 mg a day. Goal BP less than 140/90 Diabetes, type II, poorly controlled: Patient was previously taking glipizide but states that he stopped taking it due to stomach irritation. Patient has utilized Metformin in the past. Have restarted Metformin along with sliding scale. Once patient is tolerating Metformin over the next several days we will look to start an alternative sulfonylurea at a low dose. Will attempt to avoid discharging the patient on insulin if able however A1c was 11.5 on admission and patient may be headed in that direction long-term. Did discuss his needs for continued diet and exercise intervention in order to improve his condition and reduce risk for further stroke. Hyperlipidemia, poorly controlled: Continue statin at increased level. Discussed with patient that this needs to be continued after discharge in order to prevent secondary stroke. Hypothyroidism: Thyroid panel check showed a normal TSH and an elevated free T4. Discussed with the patient his compliance with levothyroxine at home and he states he was fairly compliant with that but his MD within the last year increased his dose from 200 to 300 mcg daily. Will split the difference and start him on 250 mcg daily and would recommend a recheck after discharge with PCP and further adjustments. All records, vitals, labs and medications were reviewed. No other issues per patient, nursing or therapy. Patient was discussed in team conference. Patient was just accepted into acute rehab yesterday and initial eval's will be done today. Based on cooperation, participation, and abilities on the acute care side, the patient should make a good recovery and be able to return home at a fairly improved level. We will continue PT, OT, VISITING TEACHER in order to improve patient's ability to perform mobility, ADLs and self-care, and advance diet and improved speech. While on rehab unit we will continue to monitor patient's chronic medical conditions and reinforce his need to stay compliant with medication regimen in order to reduce the risk of recurrent CVA. In total, greater than 45 minutes was invested today and counseling the patient on his multiple comorbidities and stroke prognosis/recovery and coordinating care with the rehab team. Objective - Exam Narrative Exam: MUSCULOSKELETAL SPECIALTY EXAM CONSTITUTIONAL: Well developed, well nourished, appropriately groomed. LEFT hand dominant. RESPIRATORY: Clear to auscultation bilaterally, no increased work of breathing CARDIOVASCULAR: Regular Rate/ Rhythm, no swelling, edema or tenderness in BUE or BLE. All extremities warm. GI: + bowel sounds, soft, NTTP, nondistended. INTEGUMENTARY: Normal, no lesion, rash, masses or bruising noted in extremities. MUSCULOSKELETAL: BUE and BLE normal without defect, crepitus, subluxation, effusion, arthritic changes or TTP. R 4- /5 L 5 /5 ROM decreased on right Tone normal NEURO: CN III, IV, : EOMI (Right eye premorbidly dysconjugate) CN XII : Tongue protrudes left Sensation intact in all extremities without extinction. No tremor noted in 4 extremities. Naming and repetition intact. Follows 2 step commands. Aphasia not appreciated Dysarthria present Dysphagia present Neglect not appreciated POSTURE and GAIT: Sitting posture good. Balance and gait deferred until seen with therapy. PSYCH: Alert, oriented x3, affect appears euthymic. Insight appears intact. - Constitutional Vitals: Vital Signs - 12hr 03/09/21 03/09/21 00:38 01:21 Temperature 97.9 F Pulse Rate 90 90 Respiratory 18 Rate Blood Pressure 150/85 [Right] O2 Sat by Pulse 95 Oximetry - Allied health notes Allied health notes reviewed: nursing, PT, ST, OT - Labs CBC & Chem 7: 03/09/21 06:58 03/09/21 06:58 Labs: Laboratory Results - last 72 hr 03/09/21 03/09/21 03/09/21 06:58 06:58 06:58 WBC 7.1 RBC 4.59 Hgb 13.2 Hct 39.3 MCV 86 MCH 29 MCHC 34 RDW 13.6 Plt Count 191 Lymph % (Auto) 37.9 H [place] % (Auto) 6.8 Eos % (Auto) 2.7 Baso % (Auto) 0.5 Lymph # (Auto) 2.7 [place] # (Auto) 0.5 Eos # (Auto) 0.2 Baso # (Auto) 0.0 Seg Neutrophils % 52.1 Seg Neutrophils # 3.7 Sodium 142 Potassium 3.4 L Chloride 106.3 Carbon Dioxide 26 Anion Gap 13 BUN 25 H Creatinine 0.9 Estimated GFR > 60 BUN/Creatinine Ratio 28 Glucose 152 H Calcium 9.5 Total Bilirubin 0.70 AST 27 ALT 37 Alkaline Phosphatase 111 Total Protein 7.3 Albumin 4.0 Albumin/Globulin Ratio 1.2 TSH 0.507 Free T4 1.79 H Assessment and Plan CVA: Continue Secondary Stroke Prevention (Antithrombotic, Statin (Goal LDL-C <70), BP control (Goal <140/90), GLU control (Goal A1c <7), and lifestyle modification). Monitor for recurrent stroke or post-stroke recrudescence. Continue neuromotor therapy as above. Family training when available. Monitor for post stroke depression, cognitive deficits, seizure, dysphagia, aphasia, shoulder hand syndrome, sensory deficits, spasticity, bowel/bladder deficits, sleep disturbance, vision deficits and DVT. Prognosis for recovery and Secondary Stroke Prevention discussed. Follow up with Neurology. No driving until cleared by Neurologist. Dysphagia: Continue speech therapy to improve patient's ability to tolerate normal diet. Continue modified diet and advance as tolerated. MBS/e-stim as determined by speech therapy. Dysarthria: Continue speech therapy to improve patient's ability to control speech and effectively communicate. Hypertension: Patient's blood pressure has been elevated on the acute care side despite best efforts. Will monitor response to medications and look to adjust over the coming days. Patient states he was recently started on HCTZ but did not start taking it. Have restarted HCTZ and will look to adjust lisinopril next if needed. Goal blood pressure less than 140/90 while avoiding hyp otension. Adjust medications as needed for normotension Diabetes type 2, poorly controlled: Hemoglobin A1c 11.5 on admission. Patient previously on glipizide. In-house, patient has only been on sliding scale insulin. Patient states he did not tolerate glipizide at home. Was previously taken Metformin. Have restarted Metformin and continued sliding scale. We will look to restart a sulfonylurea if possible in order to further control the patient's diabetes with oral medications Hyperlipidemia: Does not appear the patient was taking statins. Will continue to discuss further the seriousness of secondary stroke prevention and continue patient on high-dose statin. Hypothyroidism: Patient states he had thyroidectomy in the past and is currently on Synthroid for replacement therapy. TSH was normal and free T4 was elevated. Have reduced his current dose of levothyroxine. Would recommend follow-up with PCP after discharge for continued adjustment. Continue to monitor. ADL dysfunction: OT will work on improving ability to perform ADLs (including assistive devices) to increase independence and decrease caregiver burden and improve functional transfers and mobility training. Difficulty walking: PT will work on gait training and proper use of assistive devices and advance as appropriate to use of stairs and outside ambulation on uneven surfaces. Unsteadiness on feet: PT will work on improving static and dynamic sitting and standing balance as well as proper use of assistive devices to decrease risk of falls. Abnormality of gait: PT will work to improve safety and efficiency of gait through neuromotor training and gait training along with instruction on proper use of assistive devices. Muscle weakness: PT & OT will work on strengthening exercises to improve functi onal strength including mixture of closed and open kinetic chain exercises. Debility: PT & OT will work on improving overall functional status to improve participation with ADLs, mobility and social involvement. Fatigue: PT & OT will work on improving endurance through aerobic exercises and therapeutic activity while monitoring patients tolerance for activity and vital signs as needed. DVT ppx: Lovenox Pain: Continue physical modalities in therapy and pain medications as needed to achieve functional pain control. Sleep: Monitor and address as needed. Bowel: Monitor and address as needed. Appetite: Monitor and address as needed. Discharge planning: Pending therapy progress and care plan meeting. Will continue discussion with therapy team, SW, patient and family. Restrictions/ Precautions: Falls, aspiration WB status: FWB Functional Hx: ADLs: Independent Cognition: Independent Mobility: No AD Barriers to Discharge: Decreased mobility and ability to perform self care, fly nce deficits, weakness Estimated Length of Stay: 14-18 days Discharge Destination: Home with family
[2021-03-09] MEDS: ENOXAPARIN 40 MG/0.4 ML INJ SUB-Q SCH (10:38)
[2021-03-09] MEDS: LISINOPRIL 10 MG TAB PO SCH (10:41)
[2021-03-09] MEDS: ASPIRIN 325 MG TAB PO SCH (10:41)
[2021-03-09] MEDS: NIFEdipine XL 90 MG TAB PO SCH (10:42)
[2021-03-09] MEDS: CLOPIDOGREL 75 MG TAB PO SCH (10:42)
[2021-03-09] MEDS: hydroCHLOROthiazide 12.5 MG CAP PO SCH (10:42)
[2021-03-09] MEDS: LISINOPRIL 20 MG TAB PO SCH (10:43)
[2021-03-10] MEDS: LEVOTHYROXINE 125 MCG TAB PO SCH (08:32)
[2021-03-10] MEDS: INSULIN LISPRO 100 UNIT/ML SUB-Q SCH ×5 (08:34→22:49)
--- NOTE | 2021-03-10 08:48 | Progress Note ---
Subjective Date of service: 03/10/21 Principal diagnosis: CVA Interval history: 50-year-old male with right-sided weakness starting the day prior to presentation to the ER was admitted for further treatment and suspicion of stroke. Teleneurology was consulted and the patient was later seen by in-house neurology. In addition to the right-sided weakness the patient also had slurred speech. Compliance with medications was questionable, hemoglobin A1c was 11.5% and lipid panel was elevated across the board for triglycerides, cholesterol and LDL. Head CT showed left basal ganglia lacunar infarct, mild microangiopathy, several older tiny lacunar infarcts in the right caudate and right anterior limb of the internal capsule. Follow-up MRI brain showed an acute lacunar infarct in the posterior limb of the left internal capsule. Echo was performed but is awaiting reading at this time. Carotid Doppler showed less than 50% stenosis bilaterally. Patient was able to work with therapy and was felt to be a good rehab candidate. Dysarthria continues and he does have dysphagia continues on a modified diet as well. After the patient was medically stabilized they were transferred for further rehabilitation. All available medical records have been reviewed. Plan of care was discussed with patient. Interval History: Patient is participating in therapy and making reasonable progress. Taking rest breaks as needed. +BM. Denies pain, palpitations, dyspnea, cough, N/V, or joint pain. CVA: Continue secondary stroke prevention. Discussed importance of secondary prevention with the patient again today and will continue discussion on a regular basis while the patient is on inpatient rehab. Continue to monitor for any signs of post stroke depression, shoulder-hand syndrome, bowel/bladder deficits, sleep disturbance, DVT. Dysphagia: Continue CABLEWAY OPERATOR for improvement in ability to swallow and advancement of diet in the future. MBS/e-stim as needed. Dysarthria: Patient is fairly understandable but still has deficits present. Continue speech therapy in order to improve patient's ability to clearly communicate. Hypertension, poorly controlled: Patient states that he was not completely compliant with medications at home. Remains elevated. He did state that his PCP added HCTZ just prior to having the stroke which he is not currently on. We will start that and continue to monitor and adjust medications as needed. Next change will likely be to increase lisinopril to 40 mg a day. Goal BP less than 140/90. Blood pressures improving. Continue to monitor and adjust medications as needed Diabetes, type II, poorly controlled: Patient was previously taking glipizide but states that he stopped taking it due to stomach irritation. Patient has utilized Metformin in the past. Have restarted Metformin along with sliding scale. Once patient is tolerating Metformin over the next several days we will look to start an alternative sulfonylurea at a low dose. Will attempt to avoid discharging the patient on insulin if able however A1c was 11.5 on admission and patient may be headed in that direction long-term. Did discuss his needs for continued diet and exercise intervention in order to improve his condition and reduce risk for further stroke. Improving with addition of Metformin. Continue to monitor and utilize sliding scale. Hyperlipidemia, poorly controlled: Continue statin at increased level. Discussed with patient that this needs to be continued after discharge in order to prevent secondary stroke. Hypothyroidism: Thyroid panel check showed a normal TSH and an elevated free T4. Discussed with the patient his compliance with levothyroxine at home and he states he was fairly compliant with that but his MD within the last year increased his dose from 200 to 300 mcg daily. Will split the difference and start him on 250 mcg daily and would recommend a recheck after discharge with PCP and further adjustments. All records, vitals, labs and medications were reviewed. No other issues per patient, nursing or therapy. Objective - Exam Narrative Exam: MUSCULOSKELETAL SPECIALTY EXAM CONSTITUTIONAL: Well developed, well nourished, appropriately groomed. LEFT hand dominant. RESPIRATORY: Clear to auscultation bilaterally, no increased work of breathing CARDIOVASCULAR: Regular Rate/ Rhythm, no swelling, edema or tenderness in BUE or BLE. All extremities warm. GI: + bowel sounds, soft, NTTP, nondistended. INTEGUMENTARY: Normal, no lesion, rash, masses or bruising noted in extremities. MUSCULOSKELETAL: BUE and BLE normal without defect, crepitus, subluxation, effusion, arthritic changes or TTP. R 4- /5 L 5 /5 ROM decreased on right Tone normal NEURO: CN III, IV, : EOMI (Right eye premorbidly dysconjugate) CN XII : Tongue protrudes left Sensation intact in all extremities without extinction. No tremor noted in 4 extremities. Naming and repetition intact. Follows 2 step commands. Aphasia not appreciated Dysarthria present Dysphagia present Neglect not appreciated POSTURE and GAIT: Sitting posture good. Balance and gait deferred until seen with therapy. PSYCH: Alert, oriented x3, affect appears euthymic. Insight appears intact. - Constitutional Vitals: Vital Signs - 12hr 03/09/21 03/09/21 03/10/21 22:00 23:05 01:00 Temperature 98.0 F Pulse Rate 97 H 91 H Respiratory 18 Rate Blood Pressure 149/86 O2 Sat by Pulse 96 98 Oximetry - Allied health notes Allied health notes reviewed: nursing, PT, ST, OT FIMS assessment as documented by PT/OT/ST: Locomotion- walk/wheelchair Ambulation Distance 50 - Labs CBC & Chem 7: 03/09/21 06:58 03/09/21 06:58 Labs: Laboratory Results - last 72 hr 03/09/21 03/09/21 03/09/21 06:58 06:58 06:58 WBC 7.1 RBC 4.59 Hgb 13.2 Hct 39.3 MCV 86 MCH 29 MCHC 34 RDW 13.6 Plt Count 191 Lymph % (Auto) 37.9 H [place] % (Auto) 6.8 Eos % (Auto) 2.7 Baso % (Auto) 0.5 Lymph # (Auto) 2.7 [place] # (Auto) 0.5 Eos # (Auto) 0.2 Baso # (Auto) 0.0 Seg Neutrophils % 52.1 Seg Neutrophils # 3.7 Sodium 142 Potassium 3.4 L Chloride 106.3 Carbon Dioxide 26 Anion Gap 13 BUN 25 H Creatinine 0.9 Estimated GFR > 60 BUN/Creatinine Ratio 28 Glucose 152 H POC Glucose Calcium 9.5 Total Bilirubin 0.70 AST 27 ALT 37 Alkaline Phosphatase 111 Total Protein 7.3 Albumin 4.0 Albumin/Globulin Ratio 1.2 TSH 0.507 Free T4 1.79 H 03/09/21 03/09/21 03/10/21 15:43 20:17 07:31 WBC RBC Hgb Hct MCV MCH MCHC RDW Plt Count Lymph % (Auto) [place] % (Auto) Eos % (Auto) Baso % (Auto) Lymph # (Auto) [place] # (Auto) Eos # (Auto) Baso # (Auto) Seg Neutrophils % Seg Neutrophils # Sodium Potassium Chloride Carbon Dioxide Anion Gap BUN Creatinine Estimated GFR BUN/Creatinine Ratio Glucose POC Glucose 139 H 230 H 133 H Calcium Total Bilirubin AST ALT Alkaline Phosphatase Total Protein Albumin Albumin/Globulin Ratio TSH Free T4 Assessment and Plan CVA: Continue Secondary Stroke Prevention (Antithrombotic, Statin (Goal LDL-C <70), BP control (Goal <140/90), GLU control (Goal A1c <7), and lifestyle modification). Monitor for recurrent stroke or post-stroke recrudescence. Continue neuromotor therapy as above. Family training when available. Monitor for post stroke depression, cognitive deficits, seizure, dysphagia, aphasia, shoulder hand syndrome, sensory deficits, spasticity, bowel/bladder deficits, sleep disturbance, vision deficits and DVT. Prognosis for recovery and Secondary Stroke Prevention discussed. Follow up with Neurology. No driving until cleared by Neurologist. Dysphagia: Continue speech therapy to improve patient's ability to tolerate normal diet. Continue modified diet and advance as tolerated. MBS/e-stim as determined by speech therapy. Dysarthria: Continue speech therapy to improve patient's ability to control speech and effectively communicate. Hypertension: Patient's blood pressure has been elevated on the acute care side despite best efforts. Will monitor response to medications and look to adjust over the coming days. Patient states he was recently started on HCTZ but did not start taking it. Have restarted HCTZ and will look to adjust lisinopril next if needed. Goal blood pressure less than 140/90 while avoiding hypotension. Adjust medications as needed for normotension Diabetes type 2, poorly controlled: Hemoglobin A1c 11.5 on admission. Patient previously on glipizide. In-house, patient has only been on sliding scale insulin. Patient states he did not tolerate glipizide at home. Was previously taken Metformin. Have restarted Metformin and continued sliding scale. We will look to restart a sulfonylurea if possible in order to further control the patient's diabetes with oral medications Hyperlipidemia: Does not appear the patient was taking statins. Will continue to discuss further the seriousness of secondary stroke prevention and continue patient on high-dose statin. Hypothyroidism: Patient states he had thyroidectomy in the past and is currently on Synthroid for replacement therapy. TSH was normal and free T4 was elevated. Have reduced his current dose of levothyroxine. Would recommend follow-up with PCP after discharge for continued adjustment. Continue to monitor. Hypokalemia: Replace and monitor. ADL dysfunction: OT will work on improving ability to perform ADLs (including assistive devices) to increase independence and decrease caregiver burden and improve functional transfers and mobility training. Difficulty walking: PT will work on gait training and proper use of assistive devices and advance as appropriate to use of stairs and outside ambulation on uneven surfaces. Unsteadiness on feet: PT will work on improving static and dynamic sitting and standing balance as well as proper use of assistive devices to decrease risk of falls. Abnormality of gait: PT will work to improve safety and efficiency of gait through neuromotor training and gait training along with instruction on proper use of assistive devices. Muscle weakness: PT & OT will work on strengthening exercises to improve functional strength including mixture of closed and open kinetic chain exercises. Debility: PT & OT will work on improving overall functional status to improve participation with ADLs, mobility and social involvement. Fatigue: PT & OT will work on improving endurance through aerobic exercises and therapeutic activity while monitoring patients tolerance for activity and vital signs as needed. DVT ppx: Lovenox Pain: Continue physical modalities in therapy and pain medications as needed to achieve functional pain control. Sleep: Monitor and address as needed. Bowel: Monitor and address as needed. Appetite: Monitor and address as needed. Discharge planning: Pending therapy progress and care plan meeting. Will continue discussion with therapy team, SW, patient and family. Restrictions/ Precautions: Falls, aspiration WB status: FWB Functional Hx: ADLs: Independent Cognition: Independent Mobility: No AD Barriers to Discharge: Decreased mobility and ability to perform self care, balance deficits, weakness Estimated Length of Stay: 14-18 days Discharge Destination: Home with family
[2021-03-10] MEDS: POTASSIUM CHLORIDE ER 20 MEQ TAB PO SCH (09:33)
[2021-03-10] MEDS: ASPIRIN 325 MG TAB PO SCH (09:33)
[2021-03-10] MEDS: NIFEdipine XL 90 MG TAB PO SCH (09:33)
[2021-03-10] MEDS: CLOPIDOGREL 75 MG TAB PO SCH (09:33)
[2021-03-10] MEDS: ENOXAPARIN 40 MG/0.4 ML INJ SUB-Q SCH (09:33)
[2021-03-10] MEDS: LISINOPRIL 10 MG TAB PO SCH (09:34)
[2021-03-10] MEDS: hydroCHLOROthiazide 12.5 MG CAP PO SCH (09:34)
[2021-03-10] MEDS: metFORMIN 500 MG TAB PO SCH ×2 (09:44→19:00)
[2021-03-10] MEDS: LISINOPRIL 20 MG TAB PO SCH (19:01)
[2021-03-11 05:54] LABS: Hematocrit 40.1 % (35.5-45.6); Hemoglobin 13.1 gm/dl (11.8-15.2); Mean Corpuscular HGB Conc 33 % (32-34); Mean Corpuscular Volume 86 fl (84-94); Platelet Count 209 K/mm3 (140-440); Red Blood Count 4.69 M/mm3 (3.65-5.03); Red Cell Distribution Width 13.7 % (13.2-15.2)
[2021-03-11 06:37] LABS: BUN/Creatinine Ratio 31; Blood Urea Nitrogen 25 mg/dL (9-20); Calcium 9.6 mg/dL (8.4-10.2); Hemolysis Index 4
[2021-03-11] MEDS: LEVOTHYROXINE 125 MCG TAB PO SCH (07:03)
[2021-03-11] MEDS: INSULIN LISPRO 100 UNIT/ML SUB-Q SCH ×4 (07:28→22:08)
[2021-03-11] MEDS: LISINOPRIL 20 MG TAB PO SCH (10:25)
[2021-03-11] MEDS: NIFEdipine XL 90 MG TAB PO SCH (10:25)
[2021-03-11] MEDS: hydroCHLOROthiazide 12.5 MG CAP PO SCH (10:25)
[2021-03-11] MEDS: POTASSIUM CHLORIDE ER 20 MEQ TAB PO SCH (10:25)
[2021-03-11] MEDS: CLOPIDOGREL 75 MG TAB PO SCH (10:25)
[2021-03-11] MEDS: ASPIRIN 325 MG TAB PO SCH (10:25)
[2021-03-11] MEDS: LISINOPRIL 10 MG TAB PO SCH (10:25)
[2021-03-11] MEDS: ENOXAPARIN 40 MG/0.4 ML INJ SUB-Q SCH (10:25)
[2021-03-11] MEDS: metFORMIN 500 MG TAB PO SCH ×2 (11:39→17:52)
--- NOTE | 2021-03-11 13:34 | IRU Plan of Care ---
Interdisciplinary Plan of Care - IP IRU INTERDISCIPLINARY PLAN: [facility] Inpatient Rehab Unit Plan of Care IRU Interdisciplinary Care Plan Start: 03/09/21 12:33 Freq: Status: Active Protocol: Document 03/10/21 11:07 AB (Rec: 03/10/21 11:13 AB [id number]) Interdisciplinary Problem List Interdisciplinary Problem List Interdisciplinary Problem List Impaired Eating/Swallowing, Query Text:Answers will Trigger Problems Impaired Bathing/Grooming, and Outcomes on Worklist. Impaired Dressing,Impaired Mobility,Impaired Transfers, Impaired Toileting,Impaired Comprehension,Impaired Expression,Impaired Problem Solving,Community Reintergration,Impaired Home Management,Impaired Safety IRU Interdisciplinary Care Plan Therapy Services Therapy Services Will Include: Physical Therapy,Occupational Query Text:Patient will be seen for a Therapy,Speech Therapy minimum of 3 hours of daily therapy 5 out of 7 days a week. Therapy intensity may be adjusted within a 7 consecutive day period to effectively serve the individual needs of the patient. Treatment Frequency/Intensity/Duration Treatment Frequency 3 hours/ day Treatment Intensity 5x/ week Treatment Duration 10-14 days Problem Area: Eating/Swallowing Eating/Swallowing Outcomes Improve Lingual ROM/Strength Eating/Swallowing Interventions Dysphagia Training,Patient/ Caregiver Education Problem Area: Bathing/Grooming Bathing/Grooming Outcomes Improve Sa[place] w/ Grooming,Improve Savery w/ Bathing Bathing/Grooming Interventions ADL Training,Use of Assistive Devices,Therapeutic Exercise, Therapeutic Activity, Neuromuscular Re-Education, Balance Work,Activity Tolerance Work,Patient/ Caregiver Education Problem Area: Dressing Dressing Outcomes Improve Savery w/ UB Dressing,Improve Savery w/ LB Dressing Dressing Interventions ADL Training,Use of Assistive Devices,Neuromuscular Re- Education,Therapeutic Exercise ,Balance Work,Modalities, Patient/Caregiver Education Problem Area: Mobility Mobility Outcomes Improve [place] w/ Bed Mobility,Improve Savery w/ Ambulation Mobility Interventions Therapeutic Exercise, Neuromuscular Re-Ed.,Use of Assistive Devices,Patient/ Caregiver Education,Bed Mobility Work,Gait Training,W/ C Mobility Work Problem Area: Transfers Transfers Outcomes Improve Sa[place] w/ Toilet Transfers,Improve Savery w/ Tub/Shower Transfers,Improve Savery w/ Car Transfers Transfers Interventions Transfer Training,Therapeutic Exercise,Neuromuscular Re- Education,Visual/Perceptual Training,Activity Tolerance Work,Modalities,Use of Assistive Devices,Patient/ Caregiver Education Problem Area: Bowel/Bladder Managment Bowel/Bladder Outcomes Bowel/Bladder Interventions Problem Area: Toileting Toileting Outcomes Improve Sa[place] w/ Toileting Toileting Interventions ADL Training,Balance Work,Use of Assistive Devices,Patient/ Caregiver Education Problem Area: Nutrition Nutrition Outcomes Nutrition Interventions Problem Area: Comprehension Comprehension Outcomes Comprehension Interventions Problem Area: Expression Expression Outcomes Improve Intelligibility Expression Interventions Problem Area: Problem Solving Problem Solving Outcomes Problem Solving Interventions Problem Area: Memory Memory Outcomes Memory Interventions Problem Area: Pain Management Pain Management Outcomes Pain Management Interventions Problem Area: Knowledge Deficits Knowledge Deficits Outcomes Demonstrate Ability to Manage Blood Glucose Knowledge Deficits Interventions Disease/Injury/Sx. Intervention Education, Medication Use Education, Disease Management Education Problem Area: Skin/Tissue Integrity Skin/Tissue Integrity Outcomes Skin/Tissue Integrity Interventions Problem Area: Social Interaction Social Interaction Outcomes Social Interaction Interventions Problem Area: Adjustment to Disability Adjustment to Disability Outcomes Adjustment to Disability Interventions Problem Area: Discharge Concerns Discharge Concerns Outcomes Discharge w/ Necessary Equipment,Have Home Health/ Outpatient Services Discharge Concerns Interventions Discharge Planning,Equipment Assessment, Acquisition and Placement,Family/Caregiver Training Problem Area: Community Reintegration Community Reintegration Outcomes Community Reintegration Interventions Problem Area: Home Management Home Management Outcomes Improve Sa[place] w/ Home Management Home Management Interventions Meal Preparation,Clothing Care ,Activity Tolerance Work, Patient/Caregiver Education Problem Area: Safety Safety Outcomes Provide Safe Environment, Perform Selfcare Safely, Demonstrate Good Safety w/ Transfers/Mobility Safety Interventions Identify Fall Risk,[place] Pt. to Environment,Reduce Environmental Hazards,Neuro Check Assessment,Implement Mechanical Devices, i.e. Chair Alarm (Post Fall Update),Re- Educate Patient/Caregiver for Safety (Post Fall Update) Problem Area: Medication Education Medication Education Outcomes Medication Education Interventions Problem Area: Diabetes Education Diabetes Education Outcomes Demonstrate Knowledge of Resources Availlable in Diabetic Ed. Folder Diabetes Education Interventions Give Pt. Diabetes Education Folder,Discuss Pathophysiology of Diabetes Problem Area: Oxygenation Oxygenation Outcomes Oxygenation Interventions Problem Area: Cardiovascular Cardiovascular Outcomes Maintain or Improve Cardiovascular Status Cardiovascular Interventions Assess Vital Signs at least Every 4 hours,Cardiac Monitoring, EKG and ABG as Ordered. Physician Only Medical Prognosis and Rehabilitation Good medical prognosis, good rehab potential Potential (Completed by Physician) This plan of care has been developed based on the findings from the pre-admi ssion assessment, post admission physician evaluation, information gathered from the assessments from all therapy disciplines and other pertinent clinicians. The plan of care has been reviewed and discussed in collaboration with the interdisciplinary team. The plan of care will be reviewed and updated at least weekly.
--- NOTE | 2021-03-11 14:00 | Progress Note ---
Subjective Date of service: 03/11/21 Principal diagnosis: CVA Interval history: 50-year-old male with right-sided weakness starting the day prior to presentation to the ER was admitted for further treatment and suspicion of stroke. Teleneurology was consulted and the patient was later seen by in-house neurology. In addition to the right-sided weakness the patient also had slurred speech. Compliance with medications was questionable, hemoglobin A1c was 11.5% and lipid panel was elevated across the board for triglycerides, cholesterol and LDL. Head CT showed left basal ganglia lacunar infarct, mild microangiopathy, several older tiny lacunar infarcts in the right caudate and right anterior limb of the internal capsule. Follow-up MRI brain showed an acute lacunar infarct in the posterior limb of the left internal capsule. Echo was performed but is awaiting reading at this time. Carotid Doppler showed less than 50% stenosis bilaterally. Patient was able to work with therapy and was felt to be a good rehab candidate. Dysarthria continues and he does have dysphagia continues on a modified diet as well. After the patient was medically stabilized they were transferred for further rehabilitation. All available medical records have been reviewed. Plan of care was discussed with patient. Interval History: Patient is participating in therapy and making reasonable progress. Taking rest breaks as needed. +BM. Denies pain, palpitations, dyspnea, cough, N/V, or joint pain. CVA: Continue secondary stroke prevention. Discussed importance of secondary prevention with the patient again today and will continue discussion on a regular basis while the patient is on inpatient rehab. Continue to monitor for any signs of post stroke depression, shoulder-hand syndrome, bowel/bladder deficits, sleep disturbance, DVT. Fine motor control still lacking on RUE, gross motor control and strength improving. Dysphagia: Continue [employer] for improvement in ability to swallow and advancement of diet in the future. MBS/e-stim as needed. Dysarthria: Patient is fairly understandable but still has deficits present. Continue speech therapy in order to improve patient's ability to clearly communicate. Hypertension, poorly controlled: Patient states that he was not completely co mpliant with medications at home. Remains elevated. He did state that his PCP added HCTZ just prior to having the stroke which he is not currently on. We will start that and continue to monitor and adjust medications as needed. Next change will likely be to increase lisinopril to 40 mg a day. Goal BP less than 140/90. Blood pressures improving. Continue to monitor and adjust medications as needed Diabetes, type II, poorly controlled: Patient was previously taking glipizide but states that he stopped taking it due to stomach irritation. Patient has utilized Metformin in the past. Have restarted Metformin along with sliding scale. Once patient is tolerating Metformin over the next several days we will look to start an alternative sulfonylurea at a low dose. Will attempt to avoid discharging the patient on insulin if able however A1c was 11.5 on admission and patient may be headed in that direction long-term. Did discuss his needs for continued diet and exercise intervention in order to improve his condition and reduce risk for further stroke. Improving with addition of Metformin. Continue to monitor and utilize sliding scale. Hyperlipidemia, poorly controlled: Continue statin at increased level. Discussed with patient that this needs to be continued after discharge in order to prevent secondary stroke. Hypothyroidism: Thyroid panel check showed a normal TSH and an elevated free T4. Discussed with the patient his compliance with levothyroxine at home and he s tates he was fairly compliant with that but his MD within the last year increased his dose from 200 to 300 mcg daily. Will split the difference and start him on 250 mcg daily and would recommend a recheck after discharge with PCP and further adjustments. All records, vitals, labs and medications were reviewed. No other issues per patient, nursing or therapy. Was able to reach the patient's today, spoke with her for about 30 minutes and answered all questions about his condition and prognosis, also worked with the patient in therapy gym had, I examined him and discussed prognosis for r ecovery. In total, greater than 40 minutes was invested in patient care today including greater than 50% of that time counseling and coordinating care Objective - Exam Narrative Exam: MUSCULOSKELETAL SPECIALTY EXAM CONSTITUTIONAL: Well developed, well nourished, appropriately groomed. LEFT hand dominant. RESPIRATORY: Clear to auscultation bilaterally, no increased work of breathing CARDIOVASCULAR: Regular Rate/ Rhythm, no swelling, edema or tenderness in BUE or BLE. All extremities warm. GI: + bowel sounds, soft, NTTP, nondistended. INTEGUMENTARY: Normal, no lesion, rash, masses or bruising noted in extremities. MUSCULOSKELETAL: BUE and BLE normal without defect, crepitus, subluxation, effusion, arthritic c hanges or TTP. R 4- /5, fair gross motor control L 5 /5 ROM decreased on right Tone normal NEURO: CN III, IV, : EOMI (Right eye premorbidly dysconjugate) CN XII : Tongue protrudes left Sensation intact in all extremities without extinction. No tremor noted in 4 extremities. Naming and repetition intact. Follows 2 step commands. Aphasia not appreciated Dysarthria present Dysphagia resolved Neglect not appreciated POSTURE and GAIT: Sitting posture good. Balance and gait deferred until seen with therapy. PSYCH: Alert, oriented x3, affect appears euthymic. Insight appears intact. - Constitutional Vitals: Vital Signs - 12hr 03/11/21 03/11/21 03/11/21 08:23 08:45 11:34 Temperature 98.9 F Pulse Rate 89 90 Respiratory 18 18 Rate Blood Pressure 150/77 149/86 O2 Sat by Pulse 96 98 98 Oximetry - Allied health notes Allied health notes reviewed: nursing, PT, ST, OT FIMS assessment as documented by PT/OT/ST: Locomotion- walk/wheelchair Ambulation Distance 50 - Labs CBC & Chem 7: 03/11/21 05:24 03/11/21 05:24 Labs: Laboratory Results - last 72 hr 03/09/21 03/09/21 03/09/21 06:58 06:58 06:58 WBC 7.1 RBC 4.59 Hgb 13.2 Hct 39.3 MCV 86 MCH 29 MCHC 34 RDW 13.6 Plt Count 191 Lymph % (Auto) 37.9 H [place] % (Auto) 6.8 Eos % (Auto) 2.7 Baso % (Auto) 0.5 Lymph # (Auto) 2.7 [place] # (Auto) 0.5 Eos # (Auto) 0.2 Baso # (Auto) 0.0 Seg Neutrophils % 52.1 Seg Neutrophils # 3.7 Sodium 142 Potassium 3.4 L Chloride 106.3 Carbon Dioxide 26 Anion Gap 13 BUN 25 H Creatinine 0.9 Estimated GFR > 60 BUN/Creatinine Ratio 28 Glucose 152 H POC Glucose Calcium 9.5 Total Bilirubin 0.70 AST 27 ALT 37 Alkaline Phosphatase 111 Total Protein 7.3 Albumin 4.0 Albumin/Globulin Ratio 1.2 TSH 0.507 Free T4 1.79 H 03/09/21 03/09/21 03/10/21 15:43 20:17 07:31 WBC RBC Hgb Hct MCV MCH MCHC RDW Plt Count Lymph % (Auto) [place] % (Auto) Eos % (Auto) Baso % (Auto) Lymph # (Auto) [place] # (Auto) Eos # (Auto) Baso # (Auto) Seg Neutrophils % Seg Neutrophils # Sodium Potassium Chloride Carbon Dioxide Anion Gap BUN Creatinine Estimated GFR BUN/Creatinine Ratio Glucose POC Glucose 139 H 230 H 133 H Calcium Total Bilirubin AST ALT Alkaline Phosphatase Total Protein Albumin Albumin/Globulin Ratio TSH Free T4 03/10/21 03/10/21 03/10/21 12:29 17:44 21:09 WBC RBC Hgb Hct MCV MCH MCHC RDW Plt Count Lymph % (Auto) [place] % (Auto) Eos % (Auto) Baso % (Auto) Lymph # (Auto) [place] # (Auto) Eos # (Auto) Baso # (Auto) Seg Neutrophils % Seg Neutrophils # Sodium Potassium Chloride Carbon Dioxide Anion Gap BUN Creatinine Estimated GFR BUN/Creatinine Ratio Glucose POC Glucose 195 H 176 H 135 H Calcium Total Bilirubin AST ALT Alkaline Phosphatase Total Protein Albumin Albumin/Globulin Ratio TSH Free T4 03/11/21 03/11/21 03/11/21 05:24 05:24 08:21 WBC 8.6 RBC 4.69 Hgb 13.1 Hct 40.1 MCV 86 MCH 28 MCHC 33 RDW 13.7 Plt Count 209 Lymph % (Auto) [place] % (Auto) Eos % (Auto) Baso % (Auto) Lymph # (Auto) [place] # (Auto) Eos # (Auto) Baso # (Auto) Seg Neutrophils % Seg Neutrophils # Sodium 141 Potassium 3.4 L Chloride 106.1 Carbon Dioxide 23 Anion Gap 15 BUN 25 H Creatinine 0.8 Estimated GFR > 60 BUN/Creatinine Ratio 31 Glucose 134 H POC Glucose 132 H Calcium 9.6 Total Bilirubin AST ALT Alkaline Phosphatase Total Protein Albumin Albumin/Globulin Ratio TSH Free T4 03/11/21 11:53 WBC RBC Hgb Hct MCV MCH MCHC RDW Plt Count Lymph % (Auto) [place] % (Auto) Eos % (Auto) Baso % (Auto) Lymph # (Auto) [place] # (Auto) Eos # (Auto) Baso # (Auto) Seg Neutrophils % Seg Neutrophils # Sodium Potassium Chloride Carbon Dioxide Anion Gap BUN Creatinine Estimated GFR BUN/Creatinine Ratio Glucose POC Glucose 144 H Calcium Total Bilirubin AST ALT Alkaline Phosphatase Total Protein Albumin Albumin/Globulin Ratio TSH Free T4 Assessment and Plan CVA: Continue Secondary Stroke Prevention (Antithrombotic, Statin (Goal LDL-C <70), BP control (Goal <140/90), GLU control (Goal A1c <7), and lifestyle modification). Monitor for recurrent stroke or post-stroke recrudescence. Continue neuromotor therapy as above. Family training when available. Monitor for post stroke depression, cognitive deficits, seizure, dysphagia, aphasia, shoulder hand syndrome, sensory deficits, spasticity, bowel/bladder deficits, sleep disturbance, vision deficits and DVT. Prognosis for recovery and Secondary Stroke Prevention discussed. Follow up with Neurology. No driving until cleared by Neurologist. Dysphagia: Continue speech therapy to improve patient's ability to tolerate normal diet. Continue modified diet and advance as tolerated. MBS/e-stim as determined by speech therapy. Dysarthria: Continue speech therapy to improve patient's ability to control speech and effectively communicate. Hypertension: Patient's blood pressure has been elevated on the acute care side despite best efforts. Will monitor response to medications and look to adjust over the coming days. Patient states he was recently started on HCTZ but did not start taking it. Have restarted HCTZ and will look to adjust lisinopril next if needed. Goal blood pressure less than 140/90 while avoiding hypotension. Adjust medications as needed for normotension Diabetes type 2, poorly controlled: Hemoglobin A1c 11.5 on admission. Patient previously on glipizide. In-house, patient has only been on sliding scale insulin. Patient states he did not tolerate glipizide at home. Was previously taken Metformin. Have restarted Metformin and continued sliding scale. We will look to restart a sulfonylurea if possible in order to further control the patient's diabetes with oral medications Hyperlipidemia: Does not appear the patient was taking statins. Will continue to discuss further the seriousness of secondary stroke prevention and continue patient on high-dose statin. Hypothyroidism: Patient states he had thyroidectomy in the past and is currently on Synthroid for replacement therapy. TSH was normal and free T4 was elevated. Have reduced his current dose of levothyroxine. Would recommend follow-up with PCP after discharge for continued adjustment. Continue to monitor. Hypokalemia: Replace and monitor. ADL dysfunction: OT will work on improving ability to perform ADLs (including assistive devices) to increase independence and decrease caregiver burden and improve functional transfers and mobility training. Difficulty walking: PT will work on gait training and proper use of assistive devices and advance as appropriate to use of stairs and outside ambulation on uneven surfaces. Unsteadiness on feet: PT will work on improving static and dynamic sitting and standing balance as well as proper use of assistive devices to decrease risk of falls. Abnormality of gait: PT will work to improve safety and efficiency of gait through neuromotor training and gait training along with instruction on proper use of assistive devices. Muscle weakness: PT & OT will work on strengthening exercises to improve functional strength including mixture of closed and open kinetic chain exercises. Debility: PT & OT will work on improving overall functional status to improve participation with ADLs, mobility and social involvement. Fatigue: PT & OT will work on improving endurance through aerobic exercises and therapeutic activity while monitoring patients tolerance for activity and vital signs as needed. DVT ppx: Lovenox Pain: Continue physical modalities in therapy and pain medications as needed to achieve functional pain control. Sleep: Monitor and address as needed. Bowel: Monitor and address as needed. Appetite: Monitor and address as needed. Discharge planning: Pending therapy progress and care plan meeting. Will continue discussion with therapy team, SW, patient and family. Restrictions/ Precautions: Falls, aspiration WB status: FWB Functional Hx: ADLs: Independent Cognition: Independent Mobility: No AD Barriers to Discharge: Decreased mobility and ability to perform self care, balance deficits, weakness Estimated Length of Stay: 14-18 days Discharge Destination: Home with family
[2021-03-12] MEDS: LEVOTHYROXINE 125 MCG TAB PO SCH (05:55)
--- NOTE | 2021-03-12 06:07 | Progress Note ---
Subjective Date of service: 03/12/21 Principal diagnosis: CVA Interval history: 50-year-old male with right-sided weakness starting the day prior to presentation to the ER was admitted for further treatment and suspicion of stroke. Teleneurology was consulted and the patient was later seen by in-house neurology. In addition to the right-sided weakness the patient also had slurred speech. Compliance with medications was questionable, hemoglobin A1c was 11.5% and lipid panel was elevated across the board for triglycerides, cholesterol and LDL. Head CT showed left basal ganglia lacunar infarct, mild microangiopathy, several older tiny lacunar infarcts in the right caudate and right anterior limb of the internal capsule. Follow-up MRI brain showed an acute lacunar infarct in the posterior limb of the left internal capsule. Echo was performed but is awaiting reading at this time. Carotid Doppler showed less than 50% stenosis bilaterally. Patient was able to work with therapy and was felt to be a good rehab candidate. Dysarthria continues and he does have dysphagia continues on a modified diet as well. After the patient was medically stabilized they were transferred for further rehabilitation. All available medical records have been reviewed. Plan of care was discussed with patient. Interval History: Patient is participating in therapy and making reasonable progress. Taking rest breaks as needed. +BM. Denies pain, palpitations, dyspnea, cough, N/V, or joint pain. CVA: Continue secondary stroke prevention. Discussed importance of secondary prevention with the patient again today and will continue discussion on a regular basis while the patient is on inpatient rehab. Continue to monitor for any signs of post stroke depression, shoulder-hand syndrome, bowel/bladder deficits, sleep disturbance, DVT. Fine motor control still lacking on RUE, gross motor control and strength improving. Dysphagia: Continue [employer], diet advanced to regular. Monitor for any signs or symptoms of dysphagia, MBS/e-stim as needed. Dysarthria: Patient is fairly understandable but still has deficits present. Continue speech therapy in order to improve patient's ability to clearly communicate. Hypertension, poorly controlled: Patient states that he was not completely comp liant with medications at home. Remains elevated. He did state that his PCP added HCTZ just prior to having the stroke which he is not currently on. We will start that and continue to monitor and adjust medications as needed. Next change will likely be to increase lisinopril to 40 mg a day. Goal BP less than 140/90. Blood pressures improving. Continue to monitor and adjust medications as needed Diabetes, type II, poorly controlled: Patient was previously taking glipizide but states that he stopped taking it due to stomach irritation. Patient has utilized Metformin in the past. Have restarted Metformin along with sliding scale. Once patient is tolerating Metformin over the next several days we will look to start an alternative sulfonylurea at a low dose. Will attempt to avoid discharging the patient on insulin if able however A1c was 11.5 on admission and patient may be headed in that direction long-term. Did discuss his needs for continued diet and exercise intervention in order to improve his condition and reduce risk for further stroke. Improving with addition of Metformin. Continue to monitor and utilize sliding scale. Hyperlipidemia, poorly controlled: Continue statin at increased level. Discussed with patient that this needs to be continued after discharge in order to prevent secondary stroke. Hypothyroidism: Thyroid panel check showed a normal TSH and an elevated free T4. Discussed with the patient his compliance with levothyroxine at home and he sta harinder he was fairly compliant with that but his MD within the last year increased his dose from 200 to 300 mcg daily. Will split the difference and start him on 250 mcg daily and would recommend a recheck after discharge with PCP and further adjustments. All records, vitals, labs and medications were reviewed. No other issues per patient, nursing or therapy. Objective - Exam Narrative Exam: MUSCULOSKELETAL SPECIALTY EXAM CONSTITUTIONAL: Well developed, well nourished, appropriately groomed. LEFT hand dominant. RESPIRATORY: Clear to auscultation bilaterally, no increased work of breathing CARDIOVASCULAR: Regular Rate/ Rhythm, no swelling, edema or tenderness in BUE or BLE. All extremities warm. GI: + bowel sounds, soft, NTTP, nondistended. INTEGUMENTARY: Normal, no lesion, rash, masses or bruising noted in extremities. MUSCULOSKELETAL: BUE and BLE normal without defect, crepitus, subluxation, effusion, arthritic changes or TTP. R 4- /5, fair gross motor control L 5 /5 ROM decreased on right Tone normal NEURO: CN III, IV, : EOMI (Right eye premorbidly dysconjugate) CN XII : Tongue protrudes left Sensation intact in all extremities without extinction. No tremor noted in 4 extremities. Naming and repetition intact. Follows 2 step commands. Aphasia not appreciated Dysarthria present Dysphagia resolved Neglect not appreciated POSTURE and GAIT: Sitting posture good. Balance and gait deferred until seen with therapy. PSYCH: Alert, oriented x3, affect appears euthymic. Insight appears intact. - Constitutional Vitals: Vital Signs - 12hr 03/11/21 03/11/21 03/11/21 21:47 22:00 23:44 Temperature 99.0 F 98.7 F Pulse Rate 91 H 92 H Respiratory 20 20 Rate Blood Pressure 148/86 152/87 O2 Sat by Pulse 98 98 93 Oximetry - Allied health notes Allied health notes reviewed: nursing, PT, ST, OT FIMS assessment as documented by PT/OT/ST: Locomotion- walk/wheelchair Ambulation Distance 50 - Labs CBC & Chem 7: 03/11/21 05:24 03/11/21 05:24 Labs: Laboratory Results - last 72 hr 03/09/21 03/09/21 03/09/21 06:58 06:58 06:58 WBC 7.1 RBC 4.59 Hgb 13.2 Hct 39.3 MCV 86 MCH 29 MCHC 34 RDW 13.6 Plt Count 191 Lymph % (Auto) 37.9 H [place] % (Auto) 6.8 Eos % (Auto) 2.7 Baso % (Auto) 0.5 Lymph # (Auto) 2.7 [place] # (Auto) 0.5 Eos # (Auto) 0.2 Baso # (Auto) 0.0 Seg Neutrophils % 52.1 Seg Neutrophils # 3.7 Sodium 142 Potassium 3.4 L Chloride 106.3 Carbon Dioxide 26 Anion Gap 13 BUN 25 H Creatinine 0.9 Estimated GFR > 60 BUN/Creatinine Ratio 28 Glucose 152 H POC Glucose Calcium 9.5 Total Bilirubin 0.70 AST 27 ALT 37 Alkaline Phosphatase 111 Total Protein 7.3 Albumin 4.0 Albumin/Globulin Ratio 1.2 TSH 0.507 Free T4 1.79 H 03/09/21 03/09/21 03/10/21 15:43 20:17 07:31 WBC RBC Hgb Hct MCV MCH MCHC RDW Plt Count Lymph % (Auto) [place] % (Auto) Eos % (Auto) Baso % (Auto) Lymph # (Auto) [place] # (Auto) Eos # (Auto) Baso # (Auto) Seg Neutrophils % Seg Neutrophils # Sodium Potassium Chloride Carbon Dioxide Anion Gap BUN Creatinine Estimated GFR BUN/Creatinine Ratio Glucose POC Glucose 139 H 230 H 133 H Calcium Total Bilirubin AST ALT Alkaline Phosphatase Total Protein Albumin Albumin/Globulin Ratio TSH Free T4 03/10/21 03/10/21 03/10/21 12:29 17:44 21:09 WBC RBC Hgb Hct MCV MCH MCHC RDW Plt Count Lymph % (Auto) [place] % (Auto) Eos % (Auto) Baso % (Auto) Lymph # (Auto) [place] # (Auto) Eos # (Auto) Baso # (Auto) Seg Neutrophils % Seg Neutrophils # Sodium Potassium Chloride Carbon Dioxide Anion Gap BUN Creatinine Estimated GFR BUN/Creatinine Ratio Glucose POC Glucose 195 H 176 H 135 H Calcium Total Bilirubin AST ALT Alkaline Phosphatase Total Protein Albumin Albumin/Globulin Ratio TSH Free T4 03/11/21 03/11/21 03/11/21 05:24 05:24 08:21 WBC 8.6 RBC 4.69 Hgb 13.1 Hct 40.1 MCV 86 MCH 28 MCHC 33 RDW 13.7 Plt Count 209 Lymph % (Auto) [place] % (Auto) Eos % (Auto) Baso % (Auto) Lymph # (Auto) [place] # (Auto) Eos # (Auto) Baso # (Auto) Seg Neutrophils % Seg Neutrophils # Sodium 141 Potassium 3.4 L Chloride 106.1 Carbon Dioxide 23 Anion Gap 15 BUN 25 H Creatinine 0.8 Estimated GFR > 60 BUN/Creatinine Ratio 31 Glucose 134 H POC Glucose 132 H Calcium 9.6 Total Bilirubin AST ALT Alkaline Phosphatase Total Protein Albumin Albumin/Globulin Ratio TSH Free T4 03/11/21 03/11/21 03/11/21 11:53 16:33 22:04 WBC RBC Hgb Hct MCV MCH MCHC RDW Plt Count Lymph % (Auto) [place] % (Auto) Eos % (Auto) Baso % (Auto) Lymph # (Auto) [place] # (Auto) Eos # (Auto) Baso # (Auto) Seg Neutrophils % Seg Neutrophils # Sodium Potassium Chloride Carbon Dioxide Anion Gap BUN Creatinine Estimated GFR BUN/Creatinine Ratio Glucose POC Glucose 144 H 129 H 139 H Calcium Total Bilirubin AST ALT Alkaline Phosphatase Total Protein Albumin Albumin/Globulin Ratio TSH Free T4 Assessment and Plan CVA: Continue Secondary Stroke Prevention (Antithrombotic, Statin (Goal LDL-C <70), BP control (Goal <140/90), GLU control (Goal A1c <7), and lifestyle modification). Monitor for recurrent stroke or post-stroke recrudescence. Continue neuromotor therapy as above. Family training when available. Monitor for post stroke depression, cognitive deficits, seizure, dysphagia, aphasia, shoulder hand syndrome, sensory deficits, spasticity, bowel/bladder deficits, sleep disturbance, vision deficits and DVT. Prognosis for recovery and Secondary Stroke Prevention discussed. Follow up with Neurology. No driving until cleared by Neurologist. Dysphagia: Continue speech therapy to improve patient's ability to tolerate normal diet. Advance to normal diet, monitor for any further signs of dysphagia. MBS/e-stim as determined by speech therapy. Dysarthria: Continue speech therapy to improve patient's ability to control speech and effectively communicate. Hypertension: Patient's blood pressure has been elevated on the acute care side despite best efforts. Will monitor response to medications and look to adjust over the coming days. Patient states he was recently started on HCTZ but did not start taking it. Have restarted HCTZ and will look to adjust lisinopril next if needed. Goal blood pressure less than 140/90 while avoiding hypotension. Adjust medications as needed for normotension Diabetes type 2, poorly controlled: Hemoglobin A1c 11.5 on admission. Patient previously on glipizide. In-house, patient has only been on sliding scale insulin. Patient states he did not tolerate glipizide at home. Was previously taken Metformin. Have restarted Metformin and continued sliding scale. We will look to restart a sulfonylurea if possible in order to further control the patient's diabetes with oral medications Hyperlipidemia: Does not appear the patient was taking statins. Will continue to discuss further the seriousness of secondary stroke prevention and continue patient on high-dose statin. Hypothyroidism: Patient states he had thyroidectomy in the past and is currently on Synthroid for replacement therapy. TSH was normal and free T4 was elevated. Have reduced his current dose of levothyroxine. Would recommend follow-up with PCP after discharge for continued adjustment. Continue to monitor. Hypokalemia: Replace and monitor. ADL dysfunction: OT will work on improving ability to perform ADLs (including assistive devices) to increase independence and decrease caregiver burden and improve functional transfers and mobility training. Difficulty walking: PT will work on gait training and proper use of assistive devices and advance as appropriate to use of stairs and outside ambulation on uneven surfaces. Unsteadiness on feet: PT will work on improving static and dynamic sitting and standing balance as well as proper use of assistive devices to decrease risk of falls. Abnormality of gait: PT will work to improve safety and efficiency of gait through neuromotor training and gait training along with instruction on proper use of assistive devices. Muscle weakness: PT & OT will work on strengthening exercises to improve functional strength including mixture of closed and open kinetic chain exercises. Debility: PT & OT will work on improving overall functional status to improve participation with ADLs, mobility and social involvement. Fatigue: PT & OT will work on improving endurance through aerobic exercises and therapeutic activity while monitoring patients tolerance for activity and vital signs as needed. DVT ppx: Lovenox Pain: Continue physical modalities in therapy and pain medications as needed to achieve functional pain control. Sleep: Monitor and address as needed. Bowel: Monitor and address as needed. Appetite: Monitor and address as needed. Discharge planning: Pending therapy progress and care plan meeting. Will continue discussion with therapy team, SW, patient and family. Restrictions/ Precautions: Falls, aspiration WB status: FWB Functional Hx: ADLs: Independent Cognition: Independent Mobility: No AD Barriers to Discharge: Decreased mobility and ability to perform self care, balance deficits, weakness Estimated Length of Stay: 14-18 days Discharge Destination: Home with family
[2021-03-12] MEDS: INSULIN LISPRO 100 UNIT/ML SUB-Q SCH ×4 (07:05→22:07)
[2021-03-12] MEDS: ENOXAPARIN 40 MG/0.4 ML INJ SUB-Q SCH (10:31)
[2021-03-12] MEDS: NIFEdipine XL 90 MG TAB PO SCH (12:27)
[2021-03-12] MEDS: hydroCHLOROthiazide 12.5 MG CAP PO SCH (12:27)
[2021-03-12] MEDS: LISINOPRIL 20 MG TAB PO SCH (12:27)
[2021-03-12] MEDS: CLOPIDOGREL 75 MG TAB PO SCH (12:27)
[2021-03-12] MEDS: ASPIRIN 325 MG TAB PO SCH (12:27)
[2021-03-12] MEDS: metFORMIN 500 MG TAB PO SCH ×2 (12:27→18:32)
[2021-03-12] MEDS: LISINOPRIL 10 MG TAB PO SCH (12:27)
[2021-03-13] MEDS: LEVOTHYROXINE 125 MCG TAB PO SCH (06:14)
[2021-03-13] MEDS: INSULIN LISPRO 100 UNIT/ML SUB-Q SCH ×5 (08:11→22:30)
[2021-03-13] MEDS: CLOPIDOGREL 75 MG TAB PO SCH (10:32)
[2021-03-13] MEDS: ENOXAPARIN 40 MG/0.4 ML INJ SUB-Q SCH (10:32)
[2021-03-13] MEDS: metFORMIN 500 MG TAB PO SCH ×2 (10:32→18:16)
[2021-03-13] MEDS: ASPIRIN 325 MG TAB PO SCH (10:32)
[2021-03-13] MEDS: LISINOPRIL 40 MG TAB PO SCH (10:32)
[2021-03-13] MEDS: NIFEdipine XL 90 MG TAB PO SCH (10:32)
[2021-03-13] MEDS: hydroCHLOROthiazide 12.5 MG CAP PO SCH (10:32)
[2021-03-14] MEDS: LEVOTHYROXINE 125 MCG TAB PO SCH (05:51)
[2021-03-14] MEDS: INSULIN LISPRO 100 UNIT/ML SUB-Q SCH ×4 (08:58→21:31)
[2021-03-14] MEDS: metFORMIN 500 MG TAB PO SCH ×2 (08:59→16:59)
[2021-03-14] MEDS: ENOXAPARIN 40 MG/0.4 ML INJ SUB-Q SCH (10:43)
[2021-03-14] MEDS: hydroCHLOROthiazide 12.5 MG CAP PO SCH (10:43)
[2021-03-14] MEDS: LISINOPRIL 40 MG TAB PO SCH (10:43)
[2021-03-14] MEDS: ASPIRIN 325 MG TAB PO SCH (10:43)
[2021-03-14] MEDS: NIFEdipine XL 90 MG TAB PO SCH (10:43)
[2021-03-14] MEDS: CLOPIDOGREL 75 MG TAB PO SCH (10:44)
[2021-03-15] MEDS: LEVOTHYROXINE 125 MCG TAB PO SCH (05:41)
[2021-03-15] MEDS: hydroCHLOROthiazide 12.5 MG CAP PO SCH (08:59)
[2021-03-15] MEDS: ENOXAPARIN 40 MG/0.4 ML INJ SUB-Q SCH (08:59)
[2021-03-15] MEDS: ASPIRIN 325 MG TAB PO SCH (08:59)
[2021-03-15] MEDS: NIFEdipine XL 90 MG TAB PO SCH (09:00)
[2021-03-15] MEDS: CLOPIDOGREL 75 MG TAB PO SCH (09:00)
[2021-03-15] MEDS: metFORMIN 500 MG TAB PO SCH ×2 (09:00→17:11)
[2021-03-15] MEDS: LISINOPRIL 40 MG TAB PO SCH (09:00)
[2021-03-15] MEDS: INSULIN LISPRO 100 UNIT/ML SUB-Q SCH ×4 (09:00→21:31)
--- NOTE | 2021-03-15 09:58 | Progress Note ---
Subjective Date of service: 03/15/21 Principal diagnosis: CVA Interval history: 50-year-old male with right-sided weakness starting the day prior to presentation to the ER was admitted for further treatment and suspicion of stroke. Teleneurology was consulted and the patient was later seen by in-house neurology. In addition to the right-sided weakness the patient also had slurred speech. Compliance with medications was questionable, hemoglobin A1c was 11.5% and lipid panel was elevated across the board for triglycerides, cholesterol and LDL. Head CT showed left basal ganglia lacunar infarct, mild microangiopathy, several older tiny lacunar infarcts in the right caudate and right anterior limb of the internal capsule. Follow-up MRI brain showed an acute lacunar infarct in the posterior limb of the left internal capsule. Echo was performed but is awaiting reading at this time. Carotid Doppler showed less than 50% stenosis bilaterally. Patient was able to work with therapy and was felt to be a good rehab candidate. Dysarthria continues and he does have dysphagia continues on a modified diet as well. After the patient was medically stabilized they were transferred for further rehabilitation. All available medical records have been reviewed. Plan of care was discussed with patient. Interval History: Patient is participating in therapy and making reasonable progress. Taking rest breaks as needed. +BM. Denies pain, palpitations, dyspnea, cough, N/V, or joint pain. CVA: Continue secondary stroke prevention. Discussed importance of secondary prevention with the patient again today and will continue discussion on a regular basis while the patient is on inpatient rehab. Continue to monitor for any signs of post stroke depression, shoulder-hand syndrome, bowel/bladder deficits, sleep disturbance, DVT. Fine motor control still lacking on RUE, gross motor control and strength improving. Dysphagia: Diet advanced to regular. Monitor for any signs or symptoms of dysphagia, MBS/e-stim as needed. Dysarthria: Patient is fairly understandable but still has deficits present. Continue speech therapy in order to improve patient's ability to clearly communi isacc. Hypertension, poorly controlled: Patient states that he was not completely compliant with medications at home. Goal BP less than 140/90. Blood pressures improving with current dosing of lisinopril, HCTZ, and nifedipine. Continue to monitor and adjust medications as needed Diabetes, type II, poorly controlled: Patient was previously taking glipizide but states that he stopped taking it due to stomach irritation. Patient has utilized Metformin in the past. Have restarted Metformin along with sliding scale. Continue to monitor and utilize sliding scale. Glucose values have improved since starting Metformin and are typically running in the [id number] range, all have been less than 200 shortly after starting Metformin. Hyperlipidemia, poorly controlled: Continue statin at increased level. Discussed with patient that this needs to be continued after discharge in order to prevent secondary stroke. Hypothyroidism: Thyroid panel check showed a normal TSH and an elevated free T4. Discussed with the patient his compliance with levothyroxine at home and he states he was fairly compliant with that but his MD within the last year increased his dose from 200 to 300 mcg daily. Will split the difference and start him on 250 mcg daily and would recommend a recheck after discharge with PCP and further adjustments. All records, vitals, labs and medications were reviewed. No other issues per patient, nursing or therapy. Objective - Exam Narrative Exam: MUSCULOSKELETAL SPECIALTY EXAM CONSTITUTIONAL: Well developed, well nourished, appropriately groomed. LEFT hand dominant. RESPIRATORY: Clear to auscultation bilaterally, no increased work of breathing CARDIOVASCULAR: Regular Rate/ Rhythm, no swelling, edema or tenderness in BUE or BLE. All extremities warm. GI: + bowel sounds, soft, NTTP, nondistended. INTEGUMENTARY: Normal, no lesion, rash, masses or bruising noted in extremities. MUSCULOSKELETAL: BUE and BLE normal without defect, crepitus, subluxation, effusion, arthritic changes or TTP. R 4- /5, fair gross motor control, decreased fine motor control L 5 /5 ROM decreased on right but improving Tone normal NEURO: CN III, IV, : EOMI (Right eye premorbidly dysconjugate) CN XII : Tongue protrudes left Sensation intact in all extremities without extinction. No tremor noted in 4 extremities. Naming and repetition intact. Follows 2 step commands. Aphasia not appreciated Dysarthria present Dysphagia resolved Neglect not appreciated POSTURE and GAIT: Sitting posture good. Balance and gait deferred until seen with therapy. PSYCH: Alert, oriented x3, affect appears euthymic. Insight appears intact. - Constitutional Vitals: Vital Signs - 12hr 03/14/21 03/15/21 03/15/21 22:00 00:09 08:50 Temperature 98.0 F 98.3 F Pulse Rate 89 94 H Respiratory 18 16 Rate Blood Pressure 186/102 132/86 O2 Sat by Pulse 100 94 99 Oximetry 03/15/21 09:00 Temperature Pulse Rate 94 H Respiratory Rate Blood Pressure 132/86 O2 Sat by Pulse Oximetry - Allied health notes Allied health notes reviewed: nursing, PT, ST, OT FIMS assessment as documented by PT/OT/ST: Locomotion- walk/wheelchair Ambulation Distance 50 - Labs CBC & Chem 7: 03/11/21 05:24 03/11/21 05:24 Labs: Laboratory Results - last 72 hr 03/12/21 03/12/21 03/13/21 11:30 16:13 08:03 POC Glucose 151 H 136 H 125 H 03/13/21 03/13/21 03/13/21 11:43 16:42 21:29 POC Glucose 154 H 110 H 128 H 03/14/21 03/14/21 03/14/21 08:04 11:45 16:17 POC Glucose 118 H 167 H 132 H 03/14/21 03/15/21 20:47 08:49 POC Glucose 179 H 107 H Assessment and Plan CVA: Continue Secondary Stroke Prevention (Antithrombotic, Statin (Goal LDL-C <70), BP control (Goal <140/90), GLU control (Goal A1c <7), and lifestyle modification). Monitor for recurrent stroke or post-stroke recrudescence. Continue neuromotor therapy as above. Family training when available. Monitor for post stroke depression, cognitive deficits, seizure, dysphagia, aphasia, shoulder hand syndrome, sensory deficits, spasticity, bowel/bladder deficits, sleep disturbance, vision deficits and DVT. Prognosis for recovery and Secondary Stroke Prevention discussed. Follow up with Neurology. No driving until cleared by Neurologist. Dysphagia: Continue speech therapy to improve patient's ability to tolerate normal diet. Advance to normal diet, monitor for any further signs of dysphagia. MBS/e-stim as determined by speech therapy. Dysarthria: Continue speech therapy to improve patient's ability to control speech and effectively communicate. Hypertension: Patient's blood pressure has been elevated on the acute care side despite best efforts. Will monitor response to medications and look to adjust over the coming days. Patient states he was recently started on HCTZ but did not start taking it. Have restarted HCTZ and increased lisinopril to max dose. Goal blood pressure less than 140/90 while avoiding hypotension. Adjust medications as needed for normotension Diabetes type 2, poorly controlled: Hemoglobin A1c 11.5 on admission. Patient previously on glipizide. In-house, patient has only been on sliding scale insulin. Patient states he did not tolerate glipizide at home. Was previously taking Metformin. Have restarted Metformin and continued sliding scale. We will look to restart a sulfonylurea if needed in order to further control the patient's diabetes with oral medications. Glucose has improved significantly with low-dose Metformin. Hyperlipidemia: Does not appear the patient was taking statins. Will continue to discuss further the seriousness of secondary stroke prevention and continue patient on high-dose statin. Hypothyroidism: Patient states he had thyroidectomy in the past and is currently on Synthroid for replacement therapy. TSH was normal and free T4 was elevated. Have reduced his current dose of levothyroxine. Would recommend follow-up with PCP after discharge for continued adjustment. Continue to monitor. Hypokalemia: Replace and monitor. ADL dysfunction: OT will work on improving ability to perform ADLs (including assistive devices) to increase independence and decrease caregiver burden and improve functional transfers and mobility training. Difficulty walking: PT will work on gait training and proper use of assistive devices and advance as appropriate to use of stairs and outside ambulation on uneven surfaces. Unsteadiness on feet: PT will work on improving static and dynamic sitting and standing balance as well as proper use of assistive devices to decrease risk of falls. Abnormality of gait: PT will work to improve safety and efficiency of gait through neuromotor training and gait training along with instruction on proper use of assistive devices. Muscle weakness: PT & OT will work on strengthening exercises to improve functional strength including mixture of closed and open kinetic chain exercises. Debility: PT & OT will work on improving overall functional status to improve participation with ADLs, mobility and social involvement. Fatigue: PT & OT will work on improving endurance through aerobic exercises and therapeutic activity while monitoring patients tolerance for activity and vital signs as needed. DVT ppx: Lovenox Pain: Continue physical modalities in therapy and pain medications as needed to achieve functional pain control. Sleep: Monitor and address as needed. Bowel: Monitor and address as needed. Appetite: Monitor and address as needed. Discharge planning: Pending therapy progress and care plan meeting. Will continue discussion with therapy team, SW, patient and family. Restrictions/ Precautions: Falls, aspiration WB status: FWB Functional Hx: ADLs: Independent Cognition: Independent Mobility: No AD Barriers to Discharge: Decreased mobility and ability to perform self care, balance deficits, weakness Estimated Length of Stay: 14-18 days Discharge Destination: Home with family
[2021-03-15 16:02] LABS: Hematocrit 38.3 % (35.5-45.6); Hemoglobin 12.5 gm/dl (11.8-15.2); Mean Corpuscular HGB Conc 33 % (32-34); Mean Corpuscular Volume 84 fl (84-94); Platelet Count 213 K/mm3 (140-440); Red Blood Count 4.55 M/mm3 (3.65-5.03); Red Cell Distribution Width 13.3 % (13.2-15.2)
[2021-03-15 16:51] LABS: BUN/Creatinine Ratio 21; Blood Urea Nitrogen 25 mg/dL (9-20); Calcium 9.8 mg/dL (8.4-10.2); Hemolysis Index 4
[2021-03-16] MEDS: LEVOTHYROXINE 125 MCG TAB PO SCH (05:25)
--- NOTE | 2021-03-16 08:05 | Progress Note ---
Subjective Date of service: 03/16/21 Principal diagnosis: CVA Interval history: 50-year-old male with right-sided weakness starting the day prior to presentation to the ER was admitted for further treatment and suspicion of stroke. Teleneurology was consulted and the patient was later seen by in-house neurology. In addition to the right-sided weakness the patient also had slurred speech. Compliance with medications was questionable, hemoglobin A1c was 11.5% and lipid panel was elevated across the board for triglycerides, cholesterol and LDL. Head CT showed left basal ganglia lacunar infarct, mild microangiopathy, several older tiny lacunar infarcts in the right caudate and right anterior limb of the internal capsule. Follow-up MRI brain showed an acute lacunar infarct in the posterior limb of the left internal capsule. Echo was performed but is awaiting reading at this time. Carotid Doppler showed less than 50% stenosis bilaterally. Patient was able to work with therapy and was felt to be a good rehab candidate. Dysarthria continues and he does have dysphagia continues on a modified diet as well. After the patient was medically stabilized they were transferred for further rehabilitation. All available medical records have been reviewed. Plan of care was discussed with patient. Interval History: Patient is participating in therapy and making reasonable progress. Taking rest breaks as needed. +BM. Denies pain, palpitations, dyspnea, cough, N/V, or joint pain. CVA: Continue secondary stroke prevention. Discussed importance of secondary prevention with the patient again today and will continue discussion on a regular basis while the patient is on inpatient rehab. Continue to monitor for any signs of post stroke depression, shoulder-hand syndrome, bowel/bladder deficits, sleep disturbance, DVT. Fine motor control still lacking on RUE, gross motor control and strength improving. Dysphagia: Diet advanced to regular. Monitor for any signs or symptoms of dysphagia, MBS/e-stim as needed. Dysarthria: Patient is fairly understandable but still has deficits present. Continue speech therapy in order to improve patient's ability to clearly communi isacc. Hypertension, poorly controlled: Patient states that he was not completely compliant with medications at home. Goal BP less than 140/90. Blood pressures improving with current dosing of lisinopril, HCTZ, and nifedipine. Continue to monitor over the next several days after increasing dose of lisinopril to ensure that patient's blood pressure improves and that he tolerates the dose increase. Adjust medications as needed for normotension, avoid hypotension Diabetes, type II, poorly controlled: Patient was previously taking glipizide but states that he stopped taking it due to stomach irritation. Patient has utilized Metformin in the past. Have restarted Metformin along with sliding scale. Continue to monitor and utilize sliding scale. Glucose values have improved since starting Metformin, will increase dose of Metformin slightly and monitor for improvement. Have discussed with the patient and he would like to avoid insulin if at all possible and did not previously tolerate sulfonylurea. Hyperlipidemia, poorly controlled: Continue statin at increased level. Discussed with patient that this needs to be continued after discharge in order to prevent secondary stroke. Hypothyroidism: Thyroid panel check showed a normal TSH and an elevated free T4. Discussed with the patient his compliance with levothyroxine at home and he states he was fairly compliant with that but his MD within the last year increased his dose from 200 to 300 mcg daily. Will split the difference and start him on 250 mcg daily and would recommend a recheck after discharge with PCP and further adjustments. Hypokalemia: Previously replaced for several days but did not fully correct as expected. Restart replacement and check magnesium level. Monitor All records, vitals, labs and medications were reviewed. No other issues per patient, nursing or therapy. Patient discussed during team conference. Making good progress overall. Patient has hyperextension of the knee and a utilizing a Khmer knee cage which we may need to order prior to discharge. Improving ambulation, utilizing s tairs. Still having issues with dynamic balance which is poor at times. Toileting and hygiene are still mod assist. Speech therapy will likely discontinue seeing the patient today and that time will be allocated to PT/OT. Patient will need to discharge home with a rolling walker. Looking to discharge the patient towards the beginning or middle of next week however there may be an issue with the patient's insurance coverage stopping at the end of the month. Continued coverage will play a part into determining how much longer we can keep the patient and what type of outpatient or home health therapy the patient would be able to obtain. We would prefer outpatient therapy based on his level of function currently. Objective - Exam Narrative Exam: MUSCULOSKELETAL SPECIALTY EXAM CONSTITUTIONAL: Well developed, well nourished, appropriately groomed. LEFT hand dominant. RESPIRATORY: Clear to auscultation bilaterally, no increased work of breathing CARDIOVASCULAR: Regular Rate/ Rhythm, no swelling, edema or tenderness in BUE or BLE. All extremities warm. GI: + bowel sounds, soft, NTTP, nondistended. INTEGUMENTARY: Normal, no lesion, rash, masses or bruising noted in extremities. MUSCULOSKELETAL: BUE and BLE normal without defect, crepitus, subluxation, effusion, arthritic changes or TTP. R 4- /5, fair gross motor control, decreased fine motor control L 5 /5 ROM decreased on right but improving Tone normal NEURO: CN III, IV, : EOMI (Right eye premorbidly dysconjugate) CN XII : Tongue protrudes left Sensation intact in all extremities without extinction. No tremor noted in 4 extremities. Naming and repetition intact. Follows 2 step commands. Aphasia not appreciated Dysarthria present Dysphagia resolved Neglect not appreciated POSTURE and GAIT: Sitting posture good. Balance and gait fair with assistance/assistive device. PSYCH: Alert, oriented x3, affect appears euthymic. Insight appears intact. - Constitutional Vitals: Vital Signs - 12hr 03/15/21 03/15/21 22:00 23:33 Temperature 98.5 F Pulse Rate 91 H Pulse Rate [ 88 Right Radial] Respiratory 18 18 Rate Blood Pressure 143/84 O2 Sat by Pulse 100 97 Oximetry - Allied health notes Allied health notes reviewed: nursing, PT, ST, OT FIMS assessment as documented by PT/OT/ST: Locomotion- walk/wheelchair Ambulation Distance 50 - Labs CBC & Chem 7: 03/15/21 15:43 03/15/21 15:43 Labs: Laboratory Results - last 72 hr 03/13/21 03/13/21 03/13/21 08:03 11:43 16:42 WBC RBC Hgb Hct MCV MCH MCHC RDW Plt Count Sodium Potassium Chloride Carbon Dioxide Anion Gap BUN Creatinine Estimated GFR BUN/Creatinine Ratio Glucose POC Glucose 125 H 154 H 110 H Calcium 03/13/21 03/14/21 03/14/21 21:29 08:04 11:45 WBC RBC Hgb Hct MCV MCH MCHC RDW Plt Count Sodium Potassium Chloride Carbon Dioxide Anion Gap BUN Creatinine Estimated GFR BUN/Creatinine Ratio Glucose POC Glucose 128 H 118 H 167 H Calcium 03/14/21 03/14/21 03/15/21 16:17 20:47 08:49 WBC RBC Hgb Hct MCV MCH MCHC RDW Plt Count Sodium Potassium Chloride Carbon Dioxide Anion Gap BUN Creatinine Estimated GFR BUN/Creatinine Ratio Glucose POC Glucose 132 H 179 H 107 H Calcium 03/15/21 03/15/21 03/15/21 11:58 15:43 15:43 WBC 8.1 RBC 4.55 Hgb 12.5 Hct 38.3 MCV 84 MCH 27 L MCHC 33 RDW 13.3 Plt Count 213 Sodium 143 Potassium 3.5 L Chloride 103.7 Carbon Dioxide 27 Anion Gap 16 BUN 25 H Creatinine 1.2 Estimated GFR > 60 BUN/Creatinine Ratio 21 Glucose 164 H POC Glucose 136 H Calcium 9.8 03/15/21 03/15/21 16:25 21:22 WBC RBC Hgb Hct MCV MCH MCHC RDW Plt Count Sodium Potassium Chloride Carbon Dioxide Anion Gap BUN Creatinine Estimated GFR BUN/Creatinine Ratio Glucose POC Glucose 140 H 124 H Calcium Assessment and Plan CVA: Continue Secondary Stroke Prevention (Antithrombotic, Statin (Goal LDL-C <70), BP control (Goal <140/90), GLU control (Goal A1c <7), and lifestyle modification). Monitor for recurrent stroke or post-stroke recrudescence. Continue neuromotor therapy as above. Family training when available. Monitor for post stroke depression, cognitive deficits, seizure, dysphagia, a phasia, shoulder hand syndrome, sensory deficits, spasticity, bowel/bladder deficits, sleep disturbance, vision deficits and DVT. Prognosis for recovery and Secondary Stroke Prevention discussed. Follow up with Neurology. No driving until cleared by Neurologist. Dysphagia: Advanced to normal diet, monitor for any further signs of dysphagia. MBS/e-stim as determined by speech therapy. Dysarthria: Continue speech therapy to improve patient's ability to control speech and effectively communicate. Hypertension: Patient's blood pressure has been elevated on the acute care side despite best efforts. Patient states he was recently started on HCTZ but did not start taking it. Have restarted HCTZ and increased lisinopril to max dose. Goal blood pressure less than 140/90 while avoiding hypotension. Adjust medications as needed for normotension Diabetes type 2, poorly controlled: Hemoglobin A1c 11.5 on admission. Patient previously on glipizide. In-house, patient has only been on sliding scale insulin. Patient states he did not tolerate glipizide at home. Was previously taking Metformin. Have restarted Metformin and continued sliding scale. We will look to restart a sulfonylurea if needed in order to further control the patient's diabetes with oral medications. Glucose has improved, will increase Metformin dose in order to seek more improvement in glucose levels. Hyperlipidemia: Does not appear the patient was taking statins. Will continue to discuss further the seriousness of secondary stroke prevention and continue patient on high-dose statin. Hypothyroidism: Patient states he had thyroidectomy in the past and is currently on Synthroid for replacement therapy. TSH was normal and free T4 was elevated. Have reduced his current dose of levothyroxine. Would recommend follow-up with PCP after discharge for continued adjustment. Continue to monitor. Hypokalemia: Replace and monitor. ADL dysfunction: OT will work on improving ability to perform ADLs (including assistive devices) to increase independence and decrease caregiver burden and improve functional transfers and mobility training. Difficulty walking: PT will work on gait training and proper use of assistive devices and advance as appropriate to use of stairs and outside ambulation on uneven surfaces. Unsteadiness on feet: PT will work on improving static and dynamic sitting and standing balance as well as proper use of assistive devices to decrease risk of falls. Abnormality of gait: PT will work to improve safety and efficiency of gait through neuromotor training and gait training along with instruction on proper use of assistive devices. Muscle weakness: PT & OT will work on strengthening exercises to improve functional strength including mixture of closed and open kinetic chain exercises. Debility: PT & OT will work on improving overall functional status to improve participation with ADLs, mobility and social involvement. Fatigue: PT & OT will work on improving endurance through aerobic exercises and therapeutic activity while monitoring patients tolerance for activity and vital signs as needed. DVT ppx: Lovenox Pain: Continue physical modalities in therapy and pain medications as needed to achieve functional pain control. Sleep: Monitor and address as needed. Bowel: Monitor and address as needed. Appetite: Monitor and address as needed. Discharge planning: Pending therapy progress and care plan meeting. Will continue discussion with therapy team, SW, patient and family. We will look to discharge patient home towards the middle of next week if insurance issues can be worked out. Patient will need rolling walker and hinged knee brace and would prefer outpatient therapy Restrictions/ Precautions: Falls, aspiration WB status: FWB Functional Hx: ADLs: Independent Cognition: Independent Mobility: No AD Barriers to Discharge: Decreased mobility and ability to perform self care, balance deficits, weakness Estimated Length of Stay: 14-18 days Discharge Destination: Home with family
[2021-03-16] MEDS: INSULIN LISPRO 100 UNIT/ML SUB-Q SCH ×4 (08:45→21:24)
[2021-03-16] MEDS: metFORMIN 850 MG TAB PO SCH ×2 (08:49→18:00)
[2021-03-16] MEDS: CLOPIDOGREL 75 MG TAB PO SCH (10:50)
[2021-03-16] MEDS: POTASSIUM CHLORIDE ER 20 MEQ TAB PO SCH (10:50)
[2021-03-16] MEDS: NIFEdipine XL 90 MG TAB PO SCH (10:51)
[2021-03-16] MEDS: ENOXAPARIN 40 MG/0.4 ML INJ SUB-Q SCH (10:52)
[2021-03-16] MEDS: hydroCHLOROthiazide 12.5 MG CAP PO SCH (10:52)
[2021-03-16] MEDS: ASPIRIN 325 MG TAB PO SCH (10:52)
[2021-03-16] MEDS: LISINOPRIL 40 MG TAB PO SCH (10:56)
[2021-03-17 07:41] LABS: Hematocrit 38.7 % (35.5-45.6); Hemoglobin 12.4 gm/dl (11.8-15.2); Mean Corpuscular HGB Conc 32 % (32-34); Mean Corpuscular Volume 85 fl (84-94); Platelet Count 212 K/mm3 (140-440); Red Blood Count 4.56 M/mm3 (3.65-5.03); Red Cell Distribution Width 13.4 % (13.2-15.2)
[2021-03-17 07:56] LABS: BUN/Creatinine Ratio 28; Blood Urea Nitrogen 22 mg/dL (9-20); Calcium 9.8 mg/dL (8.4-10.2); Hemolysis Index 6
[2021-03-17] MEDS: INSULIN LISPRO 100 UNIT/ML SUB-Q SCH ×4 (08:01→22:55)
[2021-03-17] MEDS: metFORMIN 850 MG TAB PO SCH ×2 (08:07→18:11)
[2021-03-17] MEDS: hydroCHLOROthiazide 12.5 MG CAP PO SCH (09:06)
[2021-03-17] MEDS: CLOPIDOGREL 75 MG TAB PO SCH (09:07)
[2021-03-17] MEDS: NIFEdipine XL 90 MG TAB PO SCH (09:07)
[2021-03-17] MEDS: POTASSIUM CHLORIDE ER 20 MEQ TAB PO SCH (09:08)
[2021-03-17] MEDS: LISINOPRIL 40 MG TAB PO SCH (09:08)
[2021-03-17] MEDS: ASPIRIN 325 MG TAB PO SCH (09:09)
[2021-03-17] MEDS: ENOXAPARIN 40 MG/0.4 ML INJ SUB-Q SCH (09:09)
--- NOTE | 2021-03-17 14:23 | Progress Note ---
Subjective Date of service: 03/17/21 Principal diagnosis: CVA Interval history: 50-year-old male with right-sided weakness starting the day prior to presentation to the ER was admitted for further treatment and suspicion of stroke. Teleneurology was consulted and the patient was later seen by in-house neurology. In addition to the right-sided weakness the patient also had slurred speech. Compliance with medications was questionable, hemoglobin A1c was 11.5% and lipid panel was elevated across the board for triglycerides, cholesterol and LDL. Head CT showed left basal ganglia lacunar infarct, mild microangiopathy, several older tiny lacunar infarcts in the right caudate and right anterior limb of the internal capsule. Follow-up MRI brain showed an acute lacunar infarct in the posterior limb of the left internal capsule. Echo was performed but is awaiting reading at this time. Carotid Doppler showed less than 50% stenosis bilaterally. Patient was able to work with therapy and was felt to be a good rehab candidate. Dysarthria continues and he does have dysphagia continues on a modified diet as well. After the patient was medically stabilized they were transferred for further rehabilitation. All available medical records have been reviewed. Plan of care was discussed with patient. Interval History: Patient is participating in therapy and making reasonable progress. Taking rest breaks as needed. +BM. Denies pain, palpitations, dyspnea, cough, N/V, or joint pain. Was able to speak with the patient this afternoon and his concerning discharge and his progress. Also spent extra 30 minutes with the and the patient discussing dietary issues/choices and the effect of hypertension and diabetes on secondary CVA. In total, 40 minutes was invested in patient care today with greater than half that time spent counseling coordinating care. Discharge by speech therapy, remainder of the time can be utilized for PT/OT. CVA: Continue secondary stroke prevention. Discussed importance of secondary prevention with the patient again today and will continue discussion on a regular basis while the patient is on inpatient rehab. Continue to monitor for any signs of post stroke depression, shoulder-hand syndrome, bowel/bladder deficits, sleep disturbance, DVT. Fine motor control still lacking on RUE, gross motor control and strength improving. Dysphagia: Diet advanced to regular. Monitor for any signs or symptoms of dysphagia, MBS/e-stim as needed. Dysarthria: Patient is fairly understandable and has been discharged by speech therapy at this point. Hypertension, poorly controlled: Patient states that he was not completely compliant with medications at home. Goal BP less than 140/90. Blood pressures improving with current dosing of lisinopril, HCTZ, and nifedipine. Continue to monitor over the next several days after increasing dose of lisinopril to ensure that patient's blood pressure improves and that he tolerates the dose increase. Adjust medications as needed for normotension, avoid hypotension. Blood pressures improved however there are episodes of SBP in the 150s. Diabetes, type II, poorly controlled: Patient was previously taking glipizide but states that he stopped taking it due to stomach irritation. Patient has utilized Metformin in the past. Have restarted Metformin along with sliding scale. Continue to monitor and utilize sliding scale. Glucose values have improved since starting Metformin, will increase dose of Metformin slightly and monitor for improvement. Have discussed with the patient and he would like to avoid insulin if at all possible and did not previously tolerate sulfonylurea. Doing fairly well and tolerating increased dose of Metformin, will continue to monitor for improvement. With dietary changes at home he may be able to control his diabetes with Metformin only and hopefully at some point diet only. Advised both he and his that they would need to follow-up closely with his PCP at discharge for further monitoring and bring along his log of blood glucose checks. Hyperlipidemia, poorly controlled: Continue statin at increased level. Discussed with patient that this needs to be continued after discharge in order to prevent secondary stroke. Hypothyroidism: Thyroid panel check showed a normal TSH and an elevated free T4. Discussed with the patient his compliance with levothyroxine at home and he states he was fairly compliant with that but his MD within the last year increased his dose from 200 to 300 mcg daily. Will split the difference and start him on 250 mcg daily and would recommend a recheck after discharge with PCP and further adjustments. Hypokalemia: Magnesium within normal range, potassium normalized currently. Will stop potassium replacement tomorrow All records, vitals, labs and medications were reviewed. No other issues per patient, nursing or therapy. Objective - Exam Narrative Exam: MUSCULOSKELETAL SPECIALTY EXAM CONSTITUTIONAL: Well developed, well nourished, appropriately groomed. LEFT hand dominant. RESPIRATORY: Clear to auscultation bilaterally, no increased work of breathing CARDIOVASCULAR: Regular Rate/ Rhythm, no swelling, edema or tenderness in BUE or BLE. All extremities warm. GI: + bowel sounds, soft, NTTP, nondistended. INTEGUMENTARY: Normal, no lesion, rash, masses or bruising noted in extremities. MUSCULOSKELETAL: BUE and BLE normal without defect, crepitus, subluxation, effusion, arthritic changes or TTP. R 4- /5, fair gross motor control, decreased fine motor control L 5 /5 ROM decreased on right but improving Tone normal NEURO: CN III, IV, : EOMI (Right eye premorbidly dysconjugate) CN XII : Tongue protrudes left Sensation intact in all extremities without extinction. No tremor noted in 4 extremities. Naming and repetition intact. Follows 2 step commands. Aphasia not appreciated Dysarthria present Dysphagia resolved Neglect not appreciated POSTURE and GAIT: Sitting posture good. Balance and gait fair with assistance/assistive device. PSYCH: Alert, oriented x3, affect appears euthymic. Insight appears intact. - Constitutional Vitals: Vital Signs - 12hr 03/17/21 03/17/21 03/17/21 03:59 09:08 09:58 Temperature 97.7 F Pulse Rate 81 87 Pulse Rate [ 88 Right Radial] Respiratory 16 15 Rate Blood Pressure 143/85 148/91 O2 Sat by Pulse 98 98 Oximetry 03/17/21 11:16 Temperature 98.1 F Pulse Rate 89 Pulse Rate [ Right Radial] Respiratory 18 Rate Blood Pressure 135/80 O2 Sat by Pulse 95 Oximetry - Allied health notes Allied health notes reviewed: nursing, PT, ST, OT FIMS assessment as documented by PT/OT/ST: Locomotion- walk/wheelchair Ambulation Distance 50 - Labs CBC & Chem 7: 03/17/21 07:13 03/17/21 07:13 Labs: Laboratory Results - last 72 hr 03/14/21 03/14/21 03/15/21 16:17 20:47 08:49 WBC RBC Hgb Hct MCV MCH MCHC RDW Plt Count Sodium Potassium Chloride Carbon Dioxide Anion Gap BUN Creatinine Estimated GFR BUN/Creatinine Ratio Glucose POC Glucose 132 H 179 H 107 H Calcium Magnesium 03/15/21 03/15/21 03/15/21 11:58 15:43 15:43 WBC 8.1 RBC 4.55 Hgb 12.5 Hct 38.3 MCV 84 MCH 27 L MCHC 33 RDW 13.3 Plt Count 213 Sodium 143 Potassium 3.5 L Chloride 103.7 Carbon Dioxide 27 Anion Gap 16 BUN 25 H Creatinine 1.2 Estimated GFR > 60 BUN/Creatinine Ratio 21 Glucose 164 H POC Glucose 136 H Calcium 9.8 Magnesium 03/15/21 03/15/21 03/16/21 16:25 21:22 08:31 WBC RBC Hgb Hct MCV MCH MCHC RDW Plt Count Sodium Potassium Chloride Carbon Dioxide Anion Gap BUN Creatinine Estimated GFR BUN/Creatinine Ratio Glucose POC Glucose 140 H 124 H 109 H Calcium Magnesium 03/16/21 03/16/21 03/16/21 12:09 15:34 17:16 WBC RBC Hgb Hct MCV MCH MCHC RDW Plt Count Sodium Potassium Chloride Carbon Dioxide Anion Gap BUN Creatinine Estimated GFR BUN/Creatinine Ratio Glucose POC Glucose 151 H 151 H 171 H Calcium Magnesium 03/16/21 03/17/21 03/17/21 20:35 07:13 07:13 WBC 7.9 RBC 4.56 Hgb 12.4 Hct 38.7 MCV 85 MCH 27 L MCHC 32 RDW 13.4 Plt Count 212 Sodium 144 Potassium 3.9 Chloride 105.0 Carbon Dioxide 29 Anion Gap 14 BUN 22 H Creatinine 0.8 Estimated GFR > 60 BUN/Creatinine Ratio 28 Glucose 119 H POC Glucose 197 H Calcium 9.8 Magnesium 2.00 03/17/21 03/17/21 07:54 11:17 WBC RBC Hgb Hct MCV MCH MCHC RDW Plt Count Sodium Potassium Chloride Carbon Dioxide Anion Gap BUN Creatinine Estimated GFR BUN/Creatinine Ratio Glucose POC Glucose 100 130 H Calcium Magnesium Assessment and Plan CVA: Continue Secondary Stroke Prevention (Antithrombotic, Statin (Goal LDL-C <70), BP control (Goal <140/90), GLU control (Goal A1c <7), and lifestyle modification). Monitor for recurrent stroke or post-stroke recrudescence. Continue neuromotor therapy as above. Family training when available. Monitor for post stroke depression, cognitive deficits, seizure, dysphagia, aphasia, shoulder hand syndrome, sensory deficits, spasticity, bowel/bladder deficits, sleep disturbance, vision deficits and DVT. Prognosis for recovery and Secondary Stroke Prevention discussed. Follow up with Neurology. No driving until cleared by Neurologist. Dysphagia: Advanced to normal diet, monitor for any further signs of dysphagia. MBS/e-stim as determined by speech therapy. Dysarthria: Improved and likely resolved, speech therapy has signed off Hypertension: Patient's blood pressure has been elevated on the acute care side despite best efforts. Patient states he was recently started on HCTZ but did not start taking it. Have restarted HCTZ and increased lisinopril to max dose. Goal blood pressure less than 140/90 while avoiding hypotension. Adjust medications as needed for normotension Diabetes type 2, poorly controlled: Hemoglobin A1c 11.5 on admission. Patient previously on glipizide. In-house, patient has only been on sliding scale insulin. Patient states he did not tolerate glipizide at home. Was previously taking Metformin. Have restarted Metformin and continued sliding scale. We will look to restart a sulfonylurea if needed in order to further control the patient's diabetes with oral medications. Glucose has improved, will increase Metformin dose in order to seek more improvement in glucose levels. Hyperlipidemia: Does not appear the patient was taking statins. Will continue to discuss further the seriousness of secondary stroke prevention and continue patient on high-dose statin. Hypothyroidism: Patient states he had thyroidectomy in the past and is currently on Synthroid for replacement therapy. TSH was normal and free T4 was elevated. Have reduced his current dose of levothyroxine. Would recommend follow-up with PCP after discharge for continued adjustment. Continue to monitor. Hypokalemia: Replace and monitor. ADL dysfunction: OT will work on improving ability to perform ADLs (including assistive devices) to increase independence and decrease caregiver burden and improve functional transfers and mobility training. Difficulty walking: PT will work on gait training and proper use of assistive devices and advance as appropriate to use of stairs and outside ambulation on uneven surfaces. Unsteadiness on feet: PT will work on improving static and dynamic sitting and standing balance as well as proper use of assistive devices to decrease risk of falls. Abnormality of gait: PT will work to improve safety and efficiency of gait through neuromotor training and gait training along with instruction on proper use of assistive devices. Muscle weakness: PT & OT will work on strengthening exercises to improve functional strength including mixture of closed and open kinetic chain exercises. Debility: PT & OT will work on improving overall functional status to improve participation with ADLs, mobility and social involvement. Fatigue: PT & OT will work on improving endurance through aerobic exercises and therapeutic activity while monitoring patients tolerance for activity and vital signs as needed. DVT ppx: Lovenox Pain: Continue physical modalities in therapy and pain medications as needed to achieve functional pain control. Sleep: Monitor and address as needed. Bowel: Monitor and address as needed. Appetite: Monitor and address as needed. Discharge planning: Pending therapy progress and care plan meeting. Will continue discussion with therapy team, SW, patient and family. We will look to discharge patient home towards the middle of next week if insurance issues can be worked out. Patient will need rolling walker and hinged knee brace and would prefer outpatient therapy Restrictions/ Precautions: Falls, aspiration WB status: FWB Functional Hx: ADLs: Independent Cognition: Independent Mobility: No AD Barriers to Discharge: Decreased mobility and ability to perform self care, balance deficits, weakness Estimated Length of Stay: 14-18 days Discharge Destination: Home with family
[2021-03-17] MEDS: LEVOTHYROXINE 125 MCG TAB PO SCH (21:22)
[2021-03-18] MEDS: LEVOTHYROXINE 125 MCG TAB PO SCH (06:13)
[2021-03-18] MEDS: INSULIN LISPRO 100 UNIT/ML SUB-Q SCH ×4 (08:00→22:37)
[2021-03-18] MEDS: ENOXAPARIN 40 MG/0.4 ML INJ SUB-Q SCH (10:57)
[2021-03-18] MEDS: POTASSIUM CHLORIDE ER 20 MEQ TAB PO SCH (10:57)
[2021-03-18] MEDS: hydroCHLOROthiazide 12.5 MG CAP PO SCH (10:57)
[2021-03-18] MEDS: ASPIRIN 325 MG TAB PO SCH (10:57)
[2021-03-18] MEDS: metFORMIN 850 MG TAB PO SCH ×2 (10:58→18:13)
[2021-03-18] MEDS: LISINOPRIL 40 MG TAB PO SCH (10:58)
[2021-03-18] MEDS: CLOPIDOGREL 75 MG TAB PO SCH (10:58)
[2021-03-18] MEDS: NIFEdipine XL 90 MG TAB PO SCH (10:58)
--- NOTE | 2021-03-18 14:46 | Progress Note ---
Subjective Date of service: 03/18/21 Principal diagnosis: CVA Interval history: 50-year-old male with right-sided weakness starting the day prior to presentation to the ER was admitted for further treatment and suspicion of stroke. Teleneurology was consulted and the patient was later seen by in-house neurology. In addition to the right-sided weakness the patient also had slurred speech. Compliance with medications was questionable, hemoglobin A1c was 11.5% and lipid panel was elevated across the board for triglycerides, cholesterol and LDL. Head CT showed left basal ganglia lacunar infarct, mild microangiopathy, several older tiny lacunar infarcts in the right caudate and right anterior limb of the internal capsule. Follow-up MRI brain showed an acute lacunar infarct in the posterior limb of the left internal capsule. Echo was performed but is awaiting reading at this time. Carotid Doppler showed less than 50% stenosis bilaterally. Patient was able to work with therapy and was felt to be a good rehab candidate. Dysarthria continues and he does have dysphagia continues on a modified diet as well. After the patient was medically stabilized they were transferred for further rehabilitation. All available medical records have been reviewed. Plan of care was discussed with patient. Interval History: Patient is participating in therapy and making reasonable progress. Taking rest breaks as needed. +BM. Denies pain, palpitations, dyspnea, cough, N/V, or joint pain. Patient has state that he is having dark urine, renal function has been reasonable and we do have labs reordered for tomorrow. Patient denies any dysuria or other urinary issues. CVA: Continue secondary stroke prevention. Discussed importance of secondary prevention with the patient again today and will continue discussion on a regular basis while the patient is on inpatient rehab. Continue to monitor for any signs of post stroke depression, shoulder-hand syndrome, bowel/bladder de ficits, sleep disturbance, DVT. Fine motor control still lacking on RUE, gross motor control and strength improving. Dysphagia: Diet advanced to regular. Monitor for any signs or symptoms of dysphagia, MBS/e-stim as needed. Dysarthria: Patient is fairly understandable and has been discharged by speech therapy at this point. Hypertension, poorly controlled: Patient states that he was not completely compliant with medications at home. Goal BP less than 140/90. Blood pressures improving with current dosing of lisinopril, HCTZ, and nifedipine. Continue to monitor over the next several days after increasing dose of lisinopril to ensure that patient's blood pressure improves and that he tolerates the dose increase. Adjust medications as needed for normotension, avoid hypotension. Blood pressures improved however there are episodes of SBP in the 150s. Diabetes, type II, poorly controlled: Patient was previously taking glipizide but states that he stopped taking it due to stomach irritation. Patient has utilized Metformin in the past. Have restarted Metformin along with sliding scale. Continue to monitor and utilize sliding scale. Glucose values have improved since starting Metformin, will increase dose of Metformin slightly and monitor for improvement. Have discussed with the patient and he would like to avoid insulin if at all possible and did not previously tolerate sulfonylurea. Doing fairly well and tolerating increased dose of Metformin, will continue to monitor for improvement. With dietary changes at home he may be able to control his diabetes with Metformin only and hopefully at some point diet only. Advised both he and his that they would need to follow-up closely with his PCP at discharge for further monitoring and bring along his log of blood glucose checks. Hyperlipidemia, poorly controlled: Continue statin at increased level. Discusse d with patient that this needs to be continued after discharge in order to prevent secondary stroke. Hypothyroidism: Thyroid panel check showed a normal TSH and an elevated free T4. Discussed with the patient his compliance with levothyroxine at home and he states he was fairly compliant with that but his MD within the last year increased his dose from 200 to 300 mcg daily. Will split the difference and start him on 250 mcg daily and would recommend a recheck after discharge with PCP and further adjustments. Hypokalemia: Magnesium within normal range, potassium normalized currently. Will stop potassium replacement tomorrow All records, vitals, labs and medications were reviewed. No other issues per patient, nursing or therapy. Discharge planning was discussed with the patient and his today including approximately 32 minutes of discussion with the 2 of them as well as with ph ysical therapy and Occupational Therapy. In total, greater than 50% of the approximately 40 minutes total that was spent during patient care today was invested in counseling coordinating care. Objective - Exam Narrative Exam: MUSCULOSKELETAL SPECIALTY EXAM CONSTITUTIONAL: Well developed, well nourished, appropriately groomed. LEFT hand dominant. RESPIRATORY: Clear to auscultation bilaterally, no increased work of breathing CARDIOVASCULAR: Regular Rate/ Rhythm, no swelling, edema or tenderness in BUE or BLE. All extremities warm. GI: + bowel sounds, soft, NTTP, nondistended. INTEGUMENTARY: Normal, no lesion, rash, masses or bruising noted in extremities. MUSCULOSKELETAL: BUE and BLE normal without defect, crepitus, subluxation, effusion, arthritic changes or TTP. R 4- /5, fair gross motor control, decreased fine motor control L 5 /5 ROM decreased on right but improving Tone normal NEURO: CN III, IV, : EOMI (Right eye premorbidly dysconjugate) CN XII : Tongue protrudes left Sensation intact in all extremities without extinction. No tremor noted in 4 extremities. Naming and repetition intact. Follows 2 step commands. Aphasia not appreciated Dysarthria present Dysphagia resolved Neglect not appreciated POSTURE and GAIT: Sitting posture good. Balance and gait fair with assistance/assistive device, poor dynamic balance when not holding onto surface or walker. Knee still buckling. PSYCH: Alert, oriented x3, affect appears euthymic. Insight appears intact. - Constitutional Vitals: Vital Signs - 12hr 03/18/21 03/18/21 03/18/21 03:53 08:15 08:49 Temperature 97.9 F 97.9 F Pulse Rate 81 74 Respiratory 16 20 Rate Blood Pressure 151/89 Blood Pressure 143/91 [Right] O2 Sat by Pulse 100 100 99 Oximetry - Allied health notes Allied health notes reviewed: nursing, PT, OT FIMS assessment as documented by PT/OT/ST: Locomotion- walk/wheelchair Ambulation Distance 50 - Labs CBC & Chem 7: 03/17/21 07:13 03/17/21 07:13 Labs: Laboratory Results - last 72 hr 03/15/21 03/15/21 03/15/21 15:43 15:43 16:25 WBC 8.1 RBC 4.55 Hgb 12.5 Hct 38.3 MCV 84 MCH 27 L MCHC 33 RDW 13.3 Plt Count 213 Sodium 143 Potassium 3.5 L Chloride 103.7 Carbon Dioxide 27 Anion Gap 16 BUN 25 H Creatinine 1.2 Estimated GFR > 60 BUN/Creatinine Ratio 21 Glucose 164 H POC Glucose 140 H Calcium 9.8 Magnesium 03/15/21 03/16/21 03/16/21 21:22 08:31 12:09 WBC RBC Hgb Hct MCV MCH MCHC RDW Plt Count Sodium Potassium Chloride Carbon Dioxide Anion Gap BUN Creatinine Estimated GFR BUN/Creatinine Ratio Glucose POC Glucose 124 H 109 H 151 H Calcium Magnesium 03/16/21 03/16/21 03/16/21 15:34 17:16 20:35 WBC RBC Hgb Hct MCV MCH MCHC RDW Plt Count Sodium Potassium Chloride Carbon Dioxide Anion Gap BUN Creatinine Estimated GFR BUN/Creatinine Ratio Glucose POC Glucose 151 H 171 H 197 H Calcium Magnesium 03/17/21 03/17/21 03/17/21 07:13 07:13 07:54 WBC 7.9 RBC 4.56 Hgb 12.4 Hct 38.7 MCV 85 MCH 27 L MCHC 32 RDW 13.4 Plt Count 212 Sodium 144 Potassium 3.9 Chloride 105.0 Carbon Dioxide 29 Anion Gap 14 BUN 22 H Creatinine 0.8 Estimated GFR > 60 BUN/Creatinine Ratio 28 Glucose 119 H POC Glucose 100 Calcium 9.8 Magnesium 2.00 03/17/21 03/17/21 03/18/21 11:17 20:28 12:39 WBC RBC Hgb Hct MCV MCH MCHC RDW Plt Count Sodium Potassium Chloride Carbon Dioxide Anion Gap BUN Creatinine Estimated GFR BUN/Creatinine Ratio Glucose POC Glucose 130 H 113 H 134 H Calcium Magnesium Assessment and Plan CVA: Continue Secondary Stroke Prevention (Antithrombotic, Statin (Goal LDL-C <70), BP control (Goal <140/90), GLU control (Goal A1c <7), and lifestyle modification). Monitor for recurrent stroke or post-stroke recrudescence. Continue neuromotor therapy as above. Family training when available. Monitor for post stroke depression, cognitive deficits, seizure, dysphagia, aphasia, shoulder hand syndrome, sensory deficits, spasticity, bowel/bladder deficits, sleep disturbance, vision deficits and DVT. Prognosis for recovery and Secondary Stroke Prevention discussed. Follow up with Neurology. No driving until cleared by Neurologist. Dysphagia: Advanced to normal diet, monitor for any further signs of dysphagia. MBS/e-stim as determined by speech therapy. Dysarthria: Improved and likely resolved, speech therapy has signed off Hypertension: Patient's blood pressure has been elevated on the acute care side despite best efforts. Patient states he was recently started on HCTZ but did not start taking it. Have restarted HCTZ and increased lisinopril to max dose. Goal blood pressure less than 140/90 while avoiding hypotension. Adjust medications as needed for normotension Diabetes type 2, poorly controlled: Hemoglobin A1c 11.5 on admission. Patient previously on glipizide. In-house, patient has only been on sliding scale insulin. Patient states he did not tolerate glipizide at home. Was previously taking Metformin. Have restarted Metformin and continued sliding scale. We will look to restart a sulfonylurea if needed in order to further control the patient's diabetes with oral medications. Glucose has improved, will increase Metformin dose in order to seek more improvement in glucose levels. Hyperlipidemia: Does not appear the patient was taking statins. Will continue to discuss further the seriousness of secondary stroke prevention and continue patient on high-dose statin. Hypothyroidism: Patient states he had thyroidectomy in the past and is currently on Synthroid for replacement therapy. TSH was normal and free T4 was elevated. Have reduced his current dose of levothyroxine. Would recommend follow-up with PCP after discharge for continued adjustment. Continue to monitor. Hypokalemia: Replace and monitor. ADL dysfunction: OT will work on improving ability to perform ADLs (including assistive devices) to increase independence and decrease caregiver burden and improve functional transfers and mobility training. Difficulty walking: PT will work on gait training and proper use of assistive devices and advance as appropriate to use of stairs and outside ambulation on uneven surfaces. Unsteadiness on feet: PT will work on improving static and dynamic sitting and standing balance as well as proper use of assistive devices to decrease risk of falls. Abnormality of gait: PT will work to improve safety and efficiency of gait through neuromotor training and gait training along with instruction on proper use of assistive devices. Muscle weakness: PT & OT will work on strengthening exercises to improve functional strength including mixture of closed and open kinetic chain exercises. Debility: PT & OT will work on improving overall functional status to improve participation with ADLs, mobility and social involvement. Fatigue: PT & OT will work on improving endurance through aerobic exercises and therapeutic activity while monitoring patients tolerance for activity and vital signs as needed. DVT ppx: Lovenox Pain: Continue physical modalities in therapy and pain medications as needed to achieve functional pain control. Sleep: Monitor and address as needed. Bowel: Monitor and address as needed. Appetite: Monitor and address as needed. Discharge planning: Pending therapy progress and care plan meeting. Will meghan nue discussion with therapy team, SW, patient and family. We will look to discharge patient home towards the middle of next week if insurance issues can be worked out. Patient will need wheelchair and hinged knee brace and would prefer outpatient therapy but may need to utilize home health based on transportation and mobility issues. Restrictions/ Precautions: Falls, aspiration WB status: FWB Functional Hx: ADLs: Independent Cognition: Independent Mobility: No AD Barriers to Discharge: Decreased mobility and ability to perform self care, balance deficits, weakness Estimated Length of Stay: 14-18 days Discharge Destination: Home with family DME: Initially we were attempting to discharge the patient home at the rolling walker level however he is still not stable when utilizing his hands to perform ADLs from a standing position. Any reaching or movement from his center stance makes him unsteady and prone to falling. Further the patient still has issues with knee buckling which places him at a higher risk of falls as well. At this point would recommend discharge patient home with a wheelchair due to inability to safely perform MR ADLs without the wheelchair or with utilizing a lesser device such as a rolling walker which has been tried and failed. Patient is willing and able to utilize the wheelchair and self propel it. Patient will use the wheelchair in the home in order to perform MR ADLs and improve his independence and decrease caregiver burden. Patient's weight is approximately 250 to 255 pounds and we will need heavy-duty wheelchair due to this. There is an error in the most current weights since 03/13 which shows his weight at 319 which is up from approximately 250 pounds. Patient will also need a hinged knee brace which she will purchase from an outside supplier. 3 and 1 is also being ordered at discharge.
[2021-03-19 08:29] LABS: Hematocrit 36.7 % (35.5-45.6); Hemoglobin 12.2 gm/dl (11.8-15.2); Mean Corpuscular HGB Conc 33 % (32-34); Mean Corpuscular Volume 84 fl (84-94); Platelet Count 229 K/mm3 (140-440); Red Blood Count 4.36 M/mm3 (3.65-5.03); Red Cell Distribution Width 13.5 % (13.2-15.2)
[2021-03-19] MEDS: INSULIN LISPRO 100 UNIT/ML SUB-Q SCH ×3 (08:32→22:30)
[2021-03-19] MEDS: metFORMIN 850 MG TAB PO SCH ×2 (08:37→18:03)
[2021-03-19] MEDS: LEVOTHYROXINE 125 MCG TAB PO SCH (08:37)
[2021-03-19 08:55] LABS: BUN/Creatinine Ratio 24; Blood Urea Nitrogen 22 mg/dL (9-20); Calcium 9.7 mg/dL (8.4-10.2); Hemolysis Index 13
--- NOTE | 2021-03-19 09:23 | Progress Note ---
Subjective Date of service: 03/19/21 Principal diagnosis: CVA Interval history: 50-year-old male with right-sided weakness starting the day prior to presentation to the ER was admitted for further treatment and suspicion of stroke. Teleneurology was consulted and the patient was later seen by in-house neurology. In addition to the right-sided weakness the patient also had slurred speech. Compliance with medications was questionable, hemoglobin A1c was 11.5% and lipid panel was elevated across the board for triglycerides, cholesterol and LDL. Head CT showed left basal ganglia lacunar infarct, mild microangiopathy, several older tiny lacunar infarcts in the right caudate and right anterior limb of the internal capsule. Follow-up MRI brain showed an acute lacunar infarct in the posterior limb of the left internal capsule. Echo was performed but is awaiting reading at this time. Carotid Doppler showed less than 50% stenosis bilaterally. Patient was able to work with therapy and was felt to be a good rehab candidate. Dysarthria continues and he does have dysphagia continues on a modified diet as well. After the patient was medically stabilized they were transferred for further rehabilitation. All available medical records have been reviewed. Plan of care was discussed with patient. Interval History: Patient is participating in therapy and making reasonable progress. Taking rest breaks as needed. +BM. Denies pain, palpitations, dyspnea, cough, N/V, or joint pain. No issues concerning urination, BUN and creatinine within reasonable limits CVA: Continue secondary stroke prevention. Discussed importance of secondary prevention with the patient again today and will continue discussion on a regular basis while the patient is on inpatient rehab. Continue to monitor for any signs of post stroke depression, shoulder-hand syndrome, bowel/bladder deficits, sleep disturbance, DVT. Fine motor control still lacking on RUE, gross motor control and strength improving. Dysphagia: Diet advanced to regular. Monitor for any signs or symptoms of dysphagia, MBS/e-stim as needed. Dysarthria: Patient is fairly understandable and has been discharged by speech therapy at this point. Hypertension, poorly controlled: Patient states that he was not completely c ompliant with medications at home. Goal BP less than 140/90. Blood pressures improving with current dosing of lisinopril, HCTZ, and nifedipine. Continue to monitor over the next several days after increasing dose of lisinopril to ensure that patient's blood pressure improves and that he tolerates the dose increase. Adjust medications as needed for normotension, avoid hypotension. Blood press ures improved however there are still episodes of SBP in the 150s. Diabetes, type II, poorly controlled: Patient was previously taking glipizide but states that he stopped taking it due to stomach irritation. Patient has utilized Metformin in the past. Have restarted Metformin along with sliding scale. Continue to monitor and utilize sliding scale. Glucose values have improved since starting Metformin, will increase dose of Metformin slightly and monitor for improvement. Have discussed with the patient and he would like to avoid insulin if at all possible and did not previously tolerate sulfonylurea. Doing fairly well and tolerating increased dose of Metformin, will continue to monitor for improvement. With dietary changes at home he may be able to control his diabetes with Metformin only and hopefully at some point diet only. Advised both he and his that they would need to follow-up closely with his PCP at discharge for further monitoring and bring along his log of blood glucose checks. Values typically [id number] with occasional values higher but less than 200 overall. We will look to send the patient home on Metformin only with close follow-up with PCP. Hyperlipidemia, poorly controlled: Continue statin at increased level. Discussed with patient that this needs to be continued after discharge in order to prevent secondary stroke. Hypothyroidism: Thyroid panel check showed a normal TSH and an elevated free T4. Discussed with the patient his compliance with levothyroxine at home and he states he was fairly compliant with that but his MD within the last year increased his dose from 200 to 300 mcg daily. Will split the difference and start him on 250 mcg daily and would recommend a recheck after discharge with PCP and further adjustments. Hypokalemia: Magnesium within normal range, potassium low again, continue potassium and look to discontinue at discharge. All records, vitals, labs and medications were reviewed. No other issues per patient, nursing or therapy. Objective - Exam Narrative Exam: MUSCULOSKELETAL SPECIALTY EXAM CONSTITUTIONAL: Well developed, well nourished, appropriately groomed. LEFT hand dominant. RESPIRATORY: Clear to auscultation bilaterally, no increased work of breathing CARDIOVASCULAR: Regular Rate/ Rhythm, no swelling, edema or tenderness in BUE or BLE. All extremities warm. GI: + bowel sounds, soft, NTTP, nondistended. INTEGUMENTARY: Normal, no lesion, rash, masses or bruising noted in extremities. MUSCULOSKELETAL: BUE and BLE normal without defect, crepitus, subluxation, effusion, arthritic changes or TTP. R 4- /5, fair gross motor control, decreased fine motor control L 5 /5 ROM decreased on right but improving Tone normal NEURO: CN III, IV, : EOMI (Right eye premorbidly dysconjugate) CN XII : Tongue protrudes left Sensation intact in all extremities without extinction. No tremor noted in 4 extremities. Naming and repetition intact. Follows 2 step commands. Aphasia not appreciated Dysarthria present Dysphagia resolved Neglect not appreciated POSTURE and GAIT: Sitting posture good. Balance and gait fair with assistance/assistive device, poor dynamic balance when not holding onto surface or walker. Knee still buckling. PSYCH: Alert, oriented x3, affect appears euthymic. Insight appears intact. - Constitutional Vitals: Vital Signs - 12hr 03/18/21 03/19/21 03/19/21 22:00 03:50 08:31 Temperature 98.0 F 97.8 F Pulse Rate 85 80 Respiratory 12 20 Rate Blood Pressure 155/93 121/73 O2 Sat by Pulse 97 95 99 Oximetry - Allied health notes Allied health notes reviewed: nursing, PT, OT FIMS assessment as documented by PT/OT/ST: Locomotion- walk/wheelchair Ambulation Distance 50 - Labs CBC & Chem 7: 03/19/21 08:02 03/19/21 08:02 Labs: Laboratory Results - last 72 hr 03/16/21 03/16/21 03/16/21 12:09 15:34 17:16 WBC RBC Hgb Hct MCV MCH MCHC RDW Plt Count Sodium Potassium Chloride Carbon Dioxide Anion Gap BUN Creatinine Estimated GFR BUN/Creatinine Ratio Glucose POC Glucose 151 H 151 H 171 H Calcium Magnesium 03/16/21 03/17/21 03/17/21 20:35 07:13 07:13 WBC 7.9 RBC 4.56 Hgb 12.4 Hct 38.7 MCV 85 MCH 27 L MCHC 32 RDW 13.4 Plt Count 212 Sodium 144 Potassium 3.9 Chloride 105.0 Carbon Dioxide 29 Anion Gap 14 BUN 22 H Creatinine 0.8 Estimated GFR > 60 BUN/Creatinine Ratio 28 Glucose 119 H POC Glucose 197 H Calcium 9.8 Magnesium 2.00 03/17/21 03/17/21 03/17/21 07:54 11:17 20:28 WBC RBC Hgb Hct MCV MCH MCHC RDW Plt Count Sodium Potassium Chloride Carbon Dioxide Anion Gap BUN Creatinine Estimated GFR BUN/Creatinine Ratio Glucose POC Glucose 100 130 H 113 H Calcium Magnesium 03/18/21 03/18/21 03/18/21 12:39 16:38 20:13 WBC RBC Hgb Hct MCV MCH MCHC RDW Plt Count Sodium Potassium Chloride Carbon Dioxide Anion Gap BUN Creatinine Estimated GFR BUN/Creatinine Ratio Glucose POC Glucose 134 H 136 H 178 H Calcium Magnesium 03/19/21 03/19/21 03/19/21 08:02 08:02 08:28 WBC 7.8 RBC 4.36 Hgb 12.2 Hct 36.7 MCV 84 MCH 28 MCHC 33 RDW 13.5 Plt Count 229 Sodium 142 Potassium 3.5 L Chloride 104.0 Carbon Dioxide 25 Anion Gap 17 BUN 22 H Creatinine 0.9 Estimated GFR > 60 BUN/Creatinine Ratio 24 Glucose 110 H POC Glucose 108 H Calcium 9.7 Magnesium Assessment and Plan CVA: Continue Secondary Stroke Prevention (Antithrombotic, Statin (Goal LDL-C <70), BP control (Goal <140/90), GLU control (Goal A1c <7), and lifestyle modification). Monitor for recurrent stroke or post-stroke recrudescence. Continue neuromotor therapy as above. Family training when available. Monitor for post stroke depression, cognitive deficits, seizure, dysphagia, aphasia, shoulder hand syndrome, sensory deficits, spasticity, bowel/bladder deficits, sleep disturbance, vision deficits and DVT. Prognosis for recovery and Secondary Stroke Prevention discussed. Follow up with Neurology. No driving until cleared by Neurologist. Dysphagia: Advanced to normal diet, monitor for any further signs of dysphagia. MBS/e-stim as determined by speech therapy. Dysarthria: Improved and likely resolved, speech therapy has signed off Hypertension: Patient's blood pressure has been elevated on the acute care side despite best efforts. Patient states he was recently started on HCTZ but did not start taking it. Have restarted HCTZ and increased lisinopril to max dose. Goal blood pressure less than 140/90 while avoiding hypotension. Adjust medications as needed for normotension Diabetes type 2, poorly controlled: Hemoglobin A1c 11.5 on admission. Patient previously on glipizide. In-house, patient has only been on sliding scale insulin. Patient states he did not tolerate glipizide at home. Was previously taking Metformin. Have restarted Metformin and continued sliding scale. We wi ll look to restart a sulfonylurea if needed in order to further control the patient's diabetes with oral medications. Glucose has improved, will increase Metformin dose in order to seek more improvement in glucose levels. Hyperlipidemia: Does not appear the patient was taking statins. Will continue to discuss further the seriousness of secondary stroke prevention and continue patient on high-dose statin. Hypothyroidism: Patient states he had thyroidectomy in the past and is currently on Synthroid for replacement therapy. TSH was normal and free T4 was elevated. Have reduced his current dose of levothyroxine. Would recommend follow-up with PCP after discharge for continued adjustment. Continue to monitor. Hypokalemia: Replace and monitor. Restarting replacement as potassium has again dropped ADL dysfunction: OT will work on improving ability to perform ADLs (including assistive devices) to increase independence and decrease caregiver burden and improve functional transfers and mobility training. Difficulty walking: PT will work on gait training and proper use of assistive devices and advance as appropriate to use of stairs and outside ambulation on uneven surfaces. Unsteadiness on feet: PT will work on improving static and dynamic sitting and standing balance as well as proper use of assistive devices to decrease risk of falls. Abnormality of gait: PT will work to improve safety and efficiency of gait through neuromotor training and gait training along with instruction on proper use of assistive devices. Muscle weakness: PT & OT will work on strengthening exercises to improve functional strength including mixture of closed and open kinetic chain exercises. Debility: PT & OT will work on improving overall functional status to improve participation with ADLs, mobility and social involvement. Fatigue: PT & OT will work on improving endurance through aerobic exercises and therapeutic activity while monitoring patients tolerance for activity and vital signs as needed. DVT ppx: Lovenox Pain: Continue physical modalities in therapy and pain medications as needed to achieve functional pain control. Sleep: Monitor and address as needed. Bowel: Monitor and address as needed. Appetite: Monitor and address as needed. Discharge planning: Pending therapy progress and care plan meeting. Will continue discussion with therapy team, SW, patient and family. We will look to discharge patient home towards the middle of next week if insurance issues can be worked out. Patient will need wheelchair and hinged knee brace and would prefer outpatient therapy but may need to utilize home health based on transportation and mobility issues. Restrictions/ Precautions: Falls, aspiration WB status: FWB Functional Hx: ADLs: Independent Cognition: Independent Mobility: No AD Barriers to Discharge: Decreased mobility and ability to perform self care, b alance deficits, weakness Estimated Length of Stay: 14-18 days Discharge Destination: Home with family DME: Initially we were attempting to discharge the patient home at the rolling walker level however he is still not stable when utilizing his hands to perform ADLs from a standing position. Any reaching or movement from his center stance makes him unsteady and prone to falling. Further the patient still has issues with knee buckling which places him at a higher risk of falls as well. At this point would recommend discharge patient home with a wheelchair due to inability to sa festus perform MR ADLs without the wheelchair or with utilizing a lesser device such as a rolling walker which has been tried and failed. Patient is willing and able to utilize the wheelchair and self propel it. Patient will use the wheelchair in the home in order to perform MR ADLs and improve his independence and decrease caregiver burden. Patient's weight is approximately 250 to 255 pounds and we will need heavy-duty wheelchair due to this. There is an error in the most current weights since 03/13 which shows his weight at 319 which is up from approximately 250 pounds. Patient will also need a hinged knee brace which she will purchase from an outside supplier. 3 and 1 is also being ordered at discharge.
[2021-03-19] MEDS: CLOPIDOGREL 75 MG TAB PO SCH (11:05)
[2021-03-19] MEDS: hydroCHLOROthiazide 12.5 MG CAP PO SCH (11:05)
[2021-03-19] MEDS: ASPIRIN 325 MG TAB PO SCH (11:05)
[2021-03-19] MEDS: POTASSIUM CHLORIDE ER 20 MEQ TAB PO SCH (11:05)
[2021-03-19] MEDS: ENOXAPARIN 40 MG/0.4 ML INJ SUB-Q SCH (11:05)
[2021-03-19] MEDS: LISINOPRIL 40 MG TAB PO SCH (11:06)
[2021-03-19] MEDS: NIFEdipine XL 90 MG TAB PO SCH (11:06)
[2021-03-20] MEDS: LEVOTHYROXINE 125 MCG TAB PO SCH (05:57)
[2021-03-20] MEDS: INSULIN LISPRO 100 UNIT/ML SUB-Q SCH ×3 (08:41→17:40)
[2021-03-20] MEDS: ENOXAPARIN 40 MG/0.4 ML INJ SUB-Q SCH (09:42)
[2021-03-20] MEDS: LISINOPRIL 40 MG TAB PO SCH (09:53)
[2021-03-20] MEDS: ASPIRIN 325 MG TAB PO SCH (09:53)
[2021-03-20] MEDS: metFORMIN 850 MG TAB PO SCH ×2 (09:54→18:45)
[2021-03-20] MEDS: CLOPIDOGREL 75 MG TAB PO SCH (09:54)
[2021-03-20] MEDS: POTASSIUM CHLORIDE ER 20 MEQ TAB PO SCH (09:54)
[2021-03-20] MEDS: hydroCHLOROthiazide 12.5 MG CAP PO SCH (09:54)
[2021-03-20] MEDS: NIFEdipine XL 90 MG TAB PO SCH (09:54)
[2021-03-21] MEDS: LEVOTHYROXINE 125 MCG TAB PO SCH (05:30)
[2021-03-21] MEDS: INSULIN LISPRO 100 UNIT/ML SUB-Q SCH ×3 (13:23→21:24)
[2021-03-21] MEDS: metFORMIN 850 MG TAB PO SCH ×2 (13:28→17:57)
[2021-03-21] MEDS: CLOPIDOGREL 75 MG TAB PO SCH (13:28)
[2021-03-21] MEDS: ENOXAPARIN 40 MG/0.4 ML INJ SUB-Q SCH (13:29)
[2021-03-21] MEDS: POTASSIUM CHLORIDE ER 20 MEQ TAB PO SCH (13:29)
[2021-03-21] MEDS: hydroCHLOROthiazide 12.5 MG CAP PO SCH (13:29)
[2021-03-21] MEDS: ASPIRIN 325 MG TAB PO SCH (13:29)
[2021-03-21] MEDS: NIFEdipine XL 90 MG TAB PO SCH (13:29)
[2021-03-21] MEDS: LISINOPRIL 40 MG TAB PO SCH (13:29)
[2021-03-22 04:26] VITALS: BP 167/92
[2021-03-22] MEDS: LEVOTHYROXINE 125 MCG TAB PO SCH (05:45)
--- NOTE | 2021-03-22 10:33 | Discharge Summary ---
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 Teleneurology was consulted and the patient was later seen by in-house neurology. In addition to the right-sided weakness the patient also had slurred speech. Compliance with medications was questionable, hemoglobin A1c was 11.5% and lipid panel was elevated across the board for triglycerides, cholesterol and LDL. Head CT showed left basal ganglia lacunar infarct, mild microangiopathy, several older tiny lacunar infarcts in the right caudate and right anterior limb of the internal capsule. Follow-up MRI brain showed an acute lacunar infarct in the posterior limb of the left internal capsule. Echo was performed but is awaiting reading at this time. Carotid Doppler showed less than 50% stenosis bilaterally. Patient was able to work with therapy and was felt to be a good rehab candidate. Dysarthria continues and he does have dysphagia continues on a modified diet as well. After the patient was medically stabilized they were transferred for further rehabilitation. All available medical records have been reviewed. Plan of care was discussed with patient. CVA: Continue Secondary Stroke Prevention (Antithrombotic, Statin (Goal LDL-C <70), BP control (Goal <140/90), GLU control (Goal A1c <7), and lifestyle modification). Monitor for recurrent stroke or post-stroke recrudescence. Continue neuromotor therapy as above. Family training accomplished several times during admission. Monitor for post stroke depression, cognitive deficits, seizure, dysphagia, aphasia, shoulder hand syndrome, sensory deficits, spasticity, bowel/bladder deficits, sleep disturbance, vision deficits and DVT. Prognosis for recovery and Secondary Stroke Prevention discussed. Follow up with Neurology. No driving until cleared by Neurologist. Patient placed on Plavix and aspirin 325 mg daily by neurologist. Dysphagia: Dysphagia cleared by speech therapist and diet advanced to regular. Monitor for any signs or symptoms of dysphagia, MBS/e-stim as needed. Dysarthria: Patient is fairly understandable and has been discharged by speech therapy at this point. Hypertension, poorly controlled: Patient states that he was not completely compliant with medications at home. Goal BP less than 140/90. Blood pressures improving with current dosing of lisinopril, HCTZ, and nifedipine and are mostl y below goal of less than 140/90 with some episodes of SBP in the 150s. Adjust medications as needed for normotension, avoid hypotension. Diabetes, type II, poorly controlled: On 03/04/2021 hemoglobin A1c 11.5%. Patient was previously taking glipizide but states that he stopped taking it due to stomach irritation. Patient has utilized Metformin in the past. Have restarted Metformin along with sliding scale. Have discussed with the patient and he would like to avoid insulin if at all possible and did not previously tolerate sulfonylurea. Glucose values have improved since starting Metformin, and dose was increased to 850 mg twice daily with further improvement. With dietary changes at home he may be able to control his diabetes with Metformin only and hopefully at some point diet only. Advised both he and his that they would need to follow-up closely with his PCP at discharge for further monitoring and bring along his log of blood glucose checks. Values typically [id number] with occasional values higher, but less than 200 overall. We will look to send the patient home on Metformin only with close follow-up with PCP. Hyperlipidemia, poorly controlled: Continue statin at increased level. Discussed with patient that this needs to be continued after discharge in order to prevent secondary stroke. Will need to follow-up with PCP for recheck of lipid panel. On 03/04/2021 triglycerides 166, cholesterol 216, LDL 155, HDL 30, cholesterol/HDL ratio 7.2% Hypothyroidism: Thyroid panel check showed a normal TSH and an elevated free T4. Discussed with the patient his compliance with levothyroxine at home and he states he was fairly compliant with that but his MD within the last year increased his dose from 200 to 300 mcg daily. Will split the difference and start him on 250 mcg daily and would recommend a recheck after discharge with PCP and further adjustments. On 03/09/2021 TSH 0.507, free T4 1.79. Hypokalemia: Magnesium within normal range, potassium low and replaced. ADL and mobility deficits: Patient participated in therapy and did fairly well with recovery from his acute stroke. Is currently able to ambulate greater than household distance utilizing a rolling walker with contact-guard assistance. Patient still has loss of balance and slow nya. Unfortunately due to the loss of balance he is unsafe to perform mobility related ADLs safely utilizing a walker alone and will need to be discharged home with a wheelchair until his balance has improved to the point that he is able to safely perform those MR ADLs from a standing position. As far as ADLs, the patient is able to perform feeding and grooming/hygiene at modified independent, bathing and upper body dressing with supervision, and lower body dressing at standby assist. Disposition: HOME HEALTH CARE SERVICE Final Discharge Diagnosis (Prints w/discharge instructions): CVA, HTN, DM, Hypothyroidism Time spent for discharge: >30 mins Core Measure Documentation - Palliative Care Palliative Care/ Comfort Measures: Not Applicable - Core Measures Any of the following diagnoses?: stroke - Stroke Discharge Requirements Statin for LDL = or >70 mg/dl on DC: Yes Anticoag for atrial fib/atrial flutter: Not Applicable Antithrombotic for ischemic stroke: Yes Exam - Physical Exam Narrative exam: MUSCULOSKELETAL SPECIALTY EXAM CONSTITUTIONAL: Well developed, well nourished, appropriately groomed. LEFT hand dominant. RESPIRATORY: Clear to auscultation bilaterally, no increased work of breathing CARDIOVASCULAR: Regular Rate/ Rhythm, no swelling, edema or tenderness in BUE or BLE. All extremities warm. GI: + bowel sounds, soft, NTTP, nondistended. INTEGUMENTARY: Normal, no lesion, rash, masses or bruising noted in extremities. MUSCULOSKELETAL: BUE and BLE normal without defect, crepitus, subluxation, effusion, arthritic c hanges or TTP. R 4- /5, fair gross motor control, decreased fine motor control L 5 /5 ROM decreased on right but improving Tone normal NEURO: CN III, IV, : EOMI (Right eye premorbidly dysconjugate) CN XII : Tongue protrudes left Sensation intact in all extremities without extinction. No tremor noted in 4 extremities. Naming and repetition intact. Follows 2 step commands. Aphasia not appreciated Dysarthria seems resolved Dysphagia resolved Neglect not appreciated POSTURE and GAIT: Sitting posture good. Balance and gait fair with assistance/assistive device, poor dynamic balance when not holding onto surface or walker. Knee still buckling. PSYCH: Alert, oriented x3, affect appears euthymic. Insight appears intact. - Constitutional Vitals: Temp Pulse Resp BP Pulse Ox 97.9 F 89 16 167/92 100 03/22/21 03:59 03/22/21 03:59 03/22/21 03:59 03/22/21 03:59 03/22/21 03:59 Plan Activity: advance as tolerated, no driving until cleared by PCP, fall precautions Diet: diabetic (Heart healthy diabetic diet) Special Instructions: record daily BP diary, record blood sugar diary, physical therapy, occupational therapy, home health RN Durable Medical Equipment Needed Upon Discharge: Wheelchair, Bedside Commode Care Plan Goals: Patient will need to follow-up with PCP and neurology after discharge. Currently patient is doing fairly well from a recovery standpoint as far as CVA is concerned. There were some issues with apparent noncompliance of medications admitted by the patient. Have discussed the several times with the patient and that it is extremely important for the patient to remain on medications in order to reduce the risk of secondary CVA as well as to control his cholesterol, diabetes, and hypertension. Currently the patient's comorbidities are fairly well controlled on his current medications and in the hospital environment. Would encourage him to monitor blood pressure and blood glucose and log those values to provide to his PCP at follow-up. Glucose should be monitored on the least twice a day basis and a blood pressure can be measured at least once a day. Have discussed with the patient be referable to monitor blood pressure and blood glucose first thing in the morning prior to eating his meal and a second check of his blood glucose towards the evening after his evening meal before bedtime. Patient is on high-dose aspirin (ASA 325 mg) and Plavix 75 mg daily at the direction of the neurologist in house who saw the patient on the acute care side prior to coming to rehab. Although this does not crease his risk of having a potential bleeding event, the patient has not shown any signs of that currently in the hospital. This may be reduced to a lower dose of aspirin in the future by neurology if so desired. Follow up with: ESTEE YOUNGER MD [Primary Care Provider] - 7 Days GROVER GARCIAS MD [Staff Physician] - 14 Days (Follow-up with neurology in 2 to 4 weeks after discharge for further management of CVA. Patient remains on ASA 325 mg and Plavix 75 mg) Prescriptions: AtorvaSTATin [Lipitor] 80 mg PO QHS #60 tablet Aspirin 325 mg PO QDAY #30 tablet metFORMIN [Glucophage] 850 mg PO BIDDIAB #60 tablet hydroCHLOROthiazide [HCTZ] 12.5 mg PO QDAY #30 capsule Clopidogrel [Plavix] 75 mg PO QDAY #30 tablet NIFEdipine XL [Procardia Xl] 90 mg PO QDAY #30 tablet Levothyroxine [Synthroid] 250 mcg PO DAILY@0600 #60 tablet lisinopriL [Zestril TAB] 40 mg PO QDAY #40 tablet
== END 2021-03-22 13:45 | disposition home or self-care (01) | DRG 66 ==
LOC: UNDOADMIN 13:48 → 4A 13:48
PROVIDERS: ADMIT Physical Medicine & Rehabilitation; ATTEND Physical Medicine & Rehabilitation
DX: I63.9 Cerebral infarction, unspecified (principal); I10 Essential (primary) hypertension; R13.10 Dysphagia, unspecified; R47.1 Dysarthria and anarthria; E03.9 Hypothyroidism, unspecified; R53.81 Other malaise; Z20.822 Contact with and (suspected) exposure to COVID-19; E87.6 Hypokalemia; Z90.49 Acquired absence of other specified parts of digestive tract; Z83.3 Family history of diabetes mellitus; Z82.3 Family history of stroke; Z82.49 Family history of ischemic heart disease and other diseases of the circulatory system
CPT/HCPCS: 36415; 80048; 80053; 82962; 83735; 84439; 84443; 85025; 85027; 94640; G0378; A9270-GY; J1650; J1815